=== PATIENT | female | born 1985 | race Caucasian/White ===

== ENCOUNTER 2016-07-22 21:08 | Emergency (ER) | payer MEDICAID ==
[~2016-07-22] VITALS: Ht 165.1 cm; Wt 100.2 kg
[~2016-07-22 21:08] MED LIST: ALBUAER3 IN; ATOR10TA52 PO; BACL10TA PO; BUTA-91 PO; CITA-30 PO; CLON0.5T3 PO; FAM20T PO; GABA300C8 PO; LURA40TA PO; MET10T PO; MORP1SOL7 PO; TEMA30CA PO; WARF5TAB PO; [UNRECOGNIZED DRUG - CODE] IV
[2016-07-22 22:01] LABS: Basophils # (auto) 0.1 uL; Basophils % (auto) 0.6 % (0.0-2.0); DEFINITIVE VIEW TRANSMISSION; Eosinophils # (auto) 1.1 uL; Eosinophils % (auto) 8.8 % (0.0-7.0); Hematocrit 37.8 % (36.0-46.0); Hemoglobin 12.3 g/dL (12.2-16.2); Lymphocytes # (auto) 2.9 uL; Mean Corpuscular Hemoglobin 25.9 pg (28.0-32.0); Mean Corpuscular Hgb Conc. 32.6 g/dL (32.0-36.0); Mean Corpuscular Volume 79.2 fL (80.0-100.0); Mean Platelet Volume 8.3 fL (7.4-10.4); Monocytes # (auto) 0.8 uL; Monocytes % (auto) 6.8 % (0.0-12.0); Neutrophils # (auto) 7.3 uL; Neutrophils % (auto) 59.8 % (37.0-80.0); Platelet Count (auto) 292 10^3/uL (140-450); Red Cell Distribution Width 16.1 % (11.6-16.0); White Blood Cell 12.2 10^3/uL (4.4-10.8)
[2016-07-22 22:27] LABS: Albumin 2.8 g/dL (3.4-5.0); Anion Gap 9 (5-15); Aspartate Aminotransferase 8 U/L (15-37); BUN/Creatinine Ratio 7.4; Blood Urea Nitrogen 5 mg/dL (7-18); Calcium 7.9 mg/dL (8.5-10.1); Carbon Dioxide 26 mmol/L (21-32); Chloride 108 mmol/L (98-107); GFR African American 129 mL/min; GFR Non-African American 107 mL/min; Glucose 105 mg/dL (74-106); Potassium 3.7 mmol/L (3.5-5.1); Sodium 143 mmol/L (136-145)
[2016-07-22 22:30] LABS: Alkaline Phosphatase 93 U/L (45-117); Bilirubin, Total 0.1 mg/dL (0.2-1.0); Total Protein 6.4 g/dL (6.4-8.2)
[2016-07-22] MEDS ORDERED: MORPHINE SULFATE 4 MG/ML SYRG IV ONE (23:15)
[2016-07-22] MEDS ORDERED: ONDANSETRON HCL 4 MG/2 ML VIAL IV ONE (23:15)
[2016-07-23 00:24] LABS: Urine Bilirubin Negative (Negative); Urine Blood Negative /uL (Negative); Urine Color Yellow (Yellow); Urine Glucose Normal (Normal); Urine Ketone Negative (Negative); Urine Nitrite Negative (Negative); Urine RBC <1 /hpf (0 - 4); Urine Squamous Epithelial Cell FEW /hpf (<5); Urine Urobilinogen Normal (Negative)
[2016-07-23 03:00] VITALS: BP 111/70
== END 2016-07-23 04:40 | disposition home or self-care (01) ==
LOC: ER 21:11
DX: G92 Toxic encephalopathy (principal); F19.10 Other psychoactive substance abuse, uncomplicated; J45.909 Unspecified asthma, uncomplicated; F17.210 Nicotine dependence, cigarettes, uncomplicated; F12.10 Cannabis abuse, uncomplicated
CPT/HCPCS: 36415; 51702; 70450; 80053; 80320; 81001; 84484; 84702; 85025; 85049; 93005; 96374; 96375; 99285; G0434; J2270; J2405

== ENCOUNTER 2016-08-19 15:39 | Emergency (ER) | payer MEDICAID ==
[~2016-08-19] VITALS: Ht 165.1 cm; Wt 99.8 kg
[2016-08-19] MEDS ORDERED: SODIUM CHLORIDE 0.9% 1,000 ML IV ONE (19:47)
[2016-08-19] MEDS ORDERED: ONDANSETRON HCL 4 MG/2 ML VIAL IV ONE ×2 (20:00→22:30)
[2016-08-19 20:20] LABS: Basophils # (auto) 0.2 uL; DEFINITIVE VIEW TRANSMISSION; Eosinophils # (auto) 0.3 uL; Eosinophils % (auto) 2.3 % (0.0-7.0); Hematocrit 42.8 % (36.0-46.0); Hemoglobin 13.4 g/dL (12.2-16.2); Lymphocytes # (auto) 4.4 uL; Lymphocytes % (auto) 29.2 % (10.0-50.0); Mean Corpuscular Hemoglobin 24.9 pg (28.0-32.0); Mean Corpuscular Hgb Conc. 31.3 g/dL (32.0-36.0); Mean Corpuscular Volume 79.5 fL (80.0-100.0); Mean Platelet Volume 8.5 fL (7.4-10.4); Monocytes # (auto) 0.8 uL; Neutrophils # (auto) 9.5 uL; Neutrophils % (auto) 62.5 % (37.0-80.0); Platelet Count (auto) 345 10^3/uL (140-450); Red Cell Distribution Width 16.2 % (11.6-16.0); White Blood Cell 15.1 10^3/uL (4.4-10.8)
[2016-08-19 20:42] LABS: Albumin 3.2 g/dL (3.4-5.0); Anion Gap 12 (5-15); Aspartate Aminotransferase 13 U/L (15-37); BUN/Creatinine Ratio 13.2; Blood Urea Nitrogen 10 mg/dL (7-18); Calcium 8.5 mg/dL (8.5-10.1); Carbon Dioxide 23 mmol/L (21-32); Chloride 107 mmol/L (98-107); GFR African American 113 mL/min; GFR Non-African American 94 mL/min; Glucose 74 mg/dL (74-106); Potassium 3.9 mmol/L (3.5-5.1); Sodium 142 mmol/L (136-145)
[2016-08-19 20:45] LABS: Alkaline Phosphatase 101 U/L (45-117); Bilirubin, Total 0.4 mg/dL (0.2-1.0); Total Protein 7.2 g/dL (6.4-8.2)
[2016-08-19] MEDS ORDERED: MORPHINE SULFATE 4 MG/ML SYRG IV ONE (22:30)
[2016-08-20 00:55] LABS: Urine Bilirubin Negative (Negative); Urine Blood Negative /uL (Negative); Urine Color Yellow (Yellow); Urine Glucose Normal (Normal); Urine Ketone Negative (Negative); Urine Mucus FEW (None Seen); Urine Nitrite Negative (Negative); Urine RBC 4 /hpf (0 - 4); Urine Squamous Epithelial Cell FEW /hpf (<5); Urine Urobilinogen Normal (Negative)
[2016-08-20 04:45] VITALS: BP 115/81
== END 2016-08-20 05:06 | disposition home or self-care (01) ==
LOC: ER 15:43
DX: S70.02XA Contusion of left hip, initial encounter (principal); S80.01XA Contusion of right knee, initial encounter; J45.909 Unspecified asthma, uncomplicated; R41.82 Altered mental status, unspecified; E78.5 Hyperlipidemia, unspecified; F19.10 Other psychoactive substance abuse, uncomplicated; F17.210 Nicotine dependence, cigarettes, uncomplicated; F12.10 Cannabis abuse, uncomplicated; Z88.0 Allergy status to penicillin; Z88.2 Allergy status to sulfonamides; Z88.6 Allergy status to analgesic agent; Z88.8 Allergy status to other drugs, medicaments and biological substances; Z79.01 Long term (current) use of anticoagulants; Z79.899 Other long term (current) drug therapy; W19.XXXA Unspecified fall, initial encounter; Y93.89 Activity, other specified; Y99.8 Other external cause status; Y92.89 Other specified places as the place of occurrence of the external cause
CPT/HCPCS: 36415; 70450; 73502; 73562; 80053; 80320; 81001; 84484; 85025; 93005; 96361; 96374; 96375; 96376; 99284; G0434; J2270; J2405

== ENCOUNTER 2016-10-21 15:14 | Inpatient (IN) | payer MEDICAID ==
[~2016-10-21] VITALS: Ht 165.1 cm; Wt 102.6 kg
[2016-10-21 17:06] LABS: Urine Blood TRACE /uL (Negative); Urine Color Yellow (Yellow); Urine Glucose Normal (Normal); Urine Mucus FEW (None Seen); Urine Nitrite Negative (Negative); Urine RBC 5 /hpf (0 - 4); Urine Squamous Epithelial Cell FEW /hpf (<5)
[2016-10-21 17:44] LABS: Basophils # (auto) 0.1 uL; DEFINITIVE VIEW TRANSMISSION; Eosinophils # (auto) 0 uL; Eosinophils % (auto) 0.2 % (0.0-7.0); Hematocrit 46.8 % (36.0-46.0); Hemoglobin 15.1 g/dL (12.2-16.2); Lymphocytes # (auto) 2.5 uL; Lymphocytes % (auto) 16.7 % (10.0-50.0); Mean Corpuscular Hemoglobin 24.3 pg (28.0-32.0); Mean Corpuscular Hgb Conc. 32.3 g/dL (32.0-36.0); Mean Corpuscular Volume 75.1 fL (80.0-100.0); Mean Platelet Volume 9.3 fL (7.4-10.4); Monocytes # (auto) 0.8 uL; Monocytes % (auto) 5.1 % (0.0-12.0); Neutrophils # (auto) 11.4 uL; Platelet Count (auto) 392 10^3/uL (140-450); White Blood Cell 14.8 10^3/uL (4.4-10.8)
[2016-10-21 17:48] LABS: Urine Bilirubin Negative (Negative); Urine Ketone 3+ (Negative)
[2016-10-21 18:27] LABS: BUN/Creatinine Ratio 11.5; Calcium 10.2 mg/dL (8.5-10.1); Potassium 3.2 mmol/L (3.5-5.1)
[2016-10-21 18:30] LABS: Bilirubin, Total 0.3 mg/dL (0.2-1.0); Total Protein 8.5 g/dL (6.4-8.2)
[2016-10-21] MEDS ORDERED: POTASSIUM CHL 20 Meq TABLET PO ONE (22:00)
[2016-10-21] MEDS ORDERED: ONDANSETRON HCL 4 MG/2 ML VIAL IV ONE (22:00)
[2016-10-21] MEDS ORDERED: SODIUM CHLORIDE 0.9% 1,000 ML IV ONE (22:00)
[2016-10-21] MEDS ORDERED: METOCLOPRAMIDE HCL 5MG/ml INJ 2ml VIAL IV ONE (22:45)
[2016-10-22] MEDS ORDERED: diphenhdrAMINE HCL 50 MG/1 ML VL IV ONE (00:30)
[2016-10-22] MEDS ORDERED: HYDROmorphone HCL 2 MG/ML VL IV ONE (00:30)
[2016-10-22] MEDS ORDERED: cefTRIAXone 1GM/50ML D5W 50 ML IV ONE (00:30)
[2016-10-22] MEDS ORDERED: LOPERAMIDE HCL 2 MG CAP PO PRN (06:00)
[2016-10-22] MEDS ORDERED: ACETAMINOPHEN 325 MG TAB PO PRN (06:15)
[2016-10-22] MEDS ORDERED: HYDROcodone-ACET 5/325MG TAB PO PRN (06:15)
[2016-10-22] MEDS: METOCLOPRAMIDE HCL 10 MG TAB PO SCH ×3 (06:19→22:04)
[2016-10-22] MEDS: SODIUM CHLORIDE 0.9% 1,000 ML IV SCH (06:19)
[2016-10-22] MEDS: ONDANSETRON HCL 4 MG/2 ML VIAL IV PRN (06:58)
[2016-10-22] MEDS: MORPHINE SULF INJ 2 MG/ML SYRINGE 1ML IV PRN ×3 (06:58→20:29)
[2016-10-22 07:15] LABS: Partial Thromboplastin Time 43.3 sec (22.64-33.71)
[2016-10-22 07:18] LABS: INR 2.91 (0.9-1.15); Prothrombin Time 31.4 sec (9.37-12.3)
[2016-10-22 08:15] VITALS: BP 129/76
[2016-10-22] MEDS: CITALOPRAM HYDROBR 20 MG TAB PO SCH (09:10)
[2016-10-22] MEDS: clonazePAM 0.5 MG TAB PO SCH ×2 (09:10→22:04)
[2016-10-22] MEDS: PANTOPRAZOLE SODIUM 40 MG/10 ML VIAL IV SCH (09:10)
[2016-10-22] MEDS: GABAPENTIN 300 MG CAP PO SCH ×2 (10:03→22:04)
[2016-10-22 12:30] VITALS: BP 106/53
[2016-10-22] MEDS ORDERED: POTASSIUM CHL 20 Meq TABLET PO ONE (16:45)
[2016-10-22] MEDS ORDERED: WARFARIN SODIUM 2 MG TAB PO ONE (17:00)
[2016-10-22 17:24] VITALS: BP 110/66
[2016-10-22 22:00] VITALS: BP_SYST 109; BP_SYST 170; BP_DIAS 57; BP_DIAS 83
[2016-10-22] MEDS: ATORVASTATIN 20 MG TAB PO SCH (22:03)
[2016-10-23] MEDS: MORPHINE SULF INJ 2 MG/ML SYRINGE 1ML IV PRN ×6 (00:03→22:45)
[2016-10-23 00:09] VITALS: BP 110/66
[2016-10-23] MEDS: SODIUM CHLORIDE 0.9% 1,000 ML IV SCH ×2 (00:10→10:54)
[2016-10-23] MEDS: cefTRIAXone 1GM/50ML D5W 50 ML IV SCH (01:00)
[2016-10-23 05:00] VITALS: BP 111/55
[2016-10-23] MEDS: METOCLOPRAMIDE HCL 10 MG TAB PO SCH ×4 (06:00→21:16)
[2016-10-23 07:03] LABS: Basophils # (auto) 0.1 uL; Basophils % (auto) 0.7 % (0.0-2.0); DEFINITIVE VIEW TRANSMISSION; Eosinophils # (auto) 0.9 uL; Hematocrit 37.7 % (36.0-46.0); Hemoglobin 12.2 g/dL (12.2-16.2); Lymphocytes # (auto) 3.8 uL; Lymphocytes % (auto) 39.5 % (10.0-50.0); Mean Corpuscular Hemoglobin 24.5 pg (28.0-32.0); Mean Corpuscular Hgb Conc. 32.3 g/dL (32.0-36.0); Mean Platelet Volume 9.6 fL (7.4-10.4); Monocytes # (auto) 0.8 uL; Monocytes % (auto) 8.9 % (0.0-12.0); Neutrophils % (auto) 41.9 % (37.0-80.0); Platelet Count (auto) 283 10^3/uL (140-450); Red Cell Distribution Width 17.9 % (11.6-16.0); White Blood Cell 9.5 10^3/uL (4.4-10.8)
[2016-10-23 07:18] LABS: Partial Thromboplastin Time 43.9 sec (22.64-33.71)
[2016-10-23 07:19] LABS: INR 2.3 (0.9-1.15); Prothrombin Time 24.8 sec (9.37-12.3)
[2016-10-23 07:21] LABS: Potassium 3.1 mmol/L (3.5-5.1)
[2016-10-23 07:27] LABS: BUN/Creatinine Ratio 11.3; Calcium 8.2 mg/dL (8.5-10.1)
[2016-10-23 07:31] LABS: Bilirubin, Total 0.3 mg/dL (0.2-1.0); Total Protein 6.5 g/dL (6.4-8.2)
[2016-10-23 07:45] VITALS: BP 111/73
[2016-10-23 08:00] VITALS: BP 111/73
[2016-10-23] MEDS: PANTOPRAZOLE SODIUM 40 MG/10 ML VIAL IV SCH (09:42)
[2016-10-23] MEDS: GABAPENTIN 300 MG CAP PO SCH ×2 (09:42→21:15)
[2016-10-23] MEDS: clonazePAM 0.5 MG TAB PO SCH ×2 (09:43→21:16)
[2016-10-23] MEDS: CITALOPRAM HYDROBR 20 MG TAB PO SCH (09:52)
[2016-10-23] MEDS: ONDANSETRON HCL 4 MG/2 ML VIAL IV PRN ×2 (09:53→22:45)
[2016-10-23] MEDS ORDERED: methylPREDNISolone SOD SUCC 125 MG/2 ML VL IV ONE (11:30)
[2016-10-23] MEDS: POTASSIUM CHL 20MEQ/100ML 100 ML IV SCH ×3 (12:48→16:37)
[2016-10-23 13:32] VITALS: BP 105/76
[2016-10-23] MEDS ORDERED: WARFARIN SODIUM 2 MG TAB PO ONE (17:00)
[2016-10-23] MEDS ORDERED: WARFARIN SODIUM 5 MG TAB PO ONE (17:00)
[2016-10-23] MEDS: ALBUTEROL SULF 2.5 MG/0.5ML(0.5%) NEB SOLN NEB PRN (18:41)
[2016-10-23] MEDS: ATORVASTATIN 20 MG TAB PO SCH (21:16)
[2016-10-23 22:00] VITALS: BP 118/51
[2016-10-24] MEDS: cefTRIAXone 1GM/50ML D5W 50 ML IV SCH (01:10)
[2016-10-24] MEDS: METOCLOPRAMIDE HCL 10 MG TAB PO SCH ×3 (05:03→21:46)
[2016-10-24] MEDS: MORPHINE SULF INJ 2 MG/ML SYRINGE 1ML IV PRN ×5 (05:04→22:16)
[2016-10-24 05:43] VITALS: BP 110/55
[2016-10-24 06:34] LABS: Basophils # (auto) 0 uL; Basophils % (auto) 0.4 % (0.0-2.0); DEFINITIVE VIEW TRANSMISSION; Eosinophils # (auto) 0 uL; Hematocrit 37.1 % (36.0-46.0); Lymphocytes # (auto) 2.6 uL; Lymphocytes % (auto) 24.4 % (10.0-50.0); Mean Corpuscular Hemoglobin 24.5 pg (28.0-32.0); Mean Corpuscular Hgb Conc. 32.5 g/dL (32.0-36.0); Mean Corpuscular Volume 75.5 fL (80.0-100.0); Mean Platelet Volume 9.5 fL (7.4-10.4); Monocytes # (auto) 0.7 uL; Monocytes % (auto) 6.8 % (0.0-12.0); Neutrophils # (auto) 7.2 uL; Neutrophils % (auto) 68.4 % (37.0-80.0); Platelet Count (auto) 311 10^3/uL (140-450); Red Cell Distribution Width 17.9 % (11.6-16.0); White Blood Cell 10.6 10^3/uL (4.4-10.8)
[2016-10-24 06:51] LABS: Partial Thromboplastin Time 40.1 sec (22.64-33.71)
[2016-10-24 06:53] LABS: BUN/Creatinine Ratio 11.1; Calcium 8.3 mg/dL (8.5-10.1); Potassium 3.5 mmol/L (3.5-5.1)
[2016-10-24 06:58] LABS: INR 1.99 (0.9-1.15); Prothrombin Time 21.5 sec (9.37-12.3)
[2016-10-24 08:00] VITALS: BP 123/60
[2016-10-24] MEDS: SODIUM CHLORIDE 0.9% 1,000 ML IV SCH (08:04)
[2016-10-24] MEDS: clonazePAM 0.5 MG TAB PO SCH ×2 (10:08→21:45)
[2016-10-24] MEDS: CITALOPRAM HYDROBR 20 MG TAB PO SCH (10:08)
[2016-10-24] MEDS: GABAPENTIN 300 MG CAP PO SCH ×2 (10:08→21:45)
[2016-10-24] MEDS: PANTOPRAZOLE SODIUM 40 MG/10 ML VIAL IV SCH (10:08)
[2016-10-24] MEDS: ONDANSETRON HCL 4 MG/2 ML VIAL IV PRN ×4 (10:09→21:58)
[2016-10-24] MEDS: ALBUTEROL SULF 2.5 MG/0.5ML(0.5%) NEB SOLN NEB PRN ×2 (10:19→23:48)
[2016-10-24] MEDS: IPRATROPIUM BROM 0.5 MG/2.5ML INH SOL NEB PRN ×2 (10:19→23:48)
[2016-10-24 13:00] VITALS: BP 119/79
[2016-10-24] MEDS: NICOTINE 14 MG/24HR TOPICAL PATCH TD SCH (14:13)
[2016-10-24] MEDS ORDERED: WARFARIN SODIUM 5 MG TAB PO ONE (17:00)
[2016-10-24 17:03] VITALS: BP 105/51
[2016-10-24 17:22] VITALS: BP 127/66
[2016-10-24] MEDS ORDERED: LORazepam 2MG/ML-1ML VIAL IV PRN (17:30)
[2016-10-24] MEDS: Isosource 1.5 Cal 1 Liter GT SCH ×2 (18:30→22:30)
[2016-10-24] MEDS: ATORVASTATIN 20 MG TAB PO SCH (21:46)
[2016-10-24 22:28] VITALS: BP 124/74
[2016-10-25] MEDS: SODIUM CHLORIDE 0.9% 1,000 ML IV SCH ×2 (00:44→17:44)
[2016-10-25] MEDS: cefTRIAXone 1GM/50ML D5W 50 ML IV SCH (02:11)
[2016-10-25] MEDS: MORPHINE SULF INJ 2 MG/ML SYRINGE 1ML IV PRN ×5 (02:11→21:45)
[2016-10-25] MEDS: ONDANSETRON HCL 4 MG/2 ML VIAL IV PRN ×5 (02:12→21:45)
[2016-10-25 05:00] VITALS: BP 110/54
[2016-10-25] MEDS: METOCLOPRAMIDE HCL 10 MG TAB PO SCH ×3 (05:15→21:55)
[2016-10-25 06:50] LABS: Partial Thromboplastin Time 41.3 sec (22.64-33.71)
[2016-10-25 06:52] LABS: INR 2.09 (0.9-1.15); Prothrombin Time 22.6 sec (9.37-12.3)
[2016-10-25 09:00] VITALS: BP 119/67
[2016-10-25] MEDS ORDERED: LORazepam 2MG/ML-1ML VIAL ONE (09:59)
[2016-10-25] MEDS: GABAPENTIN 300 MG CAP PO SCH ×2 (11:41→21:56)
[2016-10-25] MEDS: PANTOPRAZOLE SODIUM 40 MG/10 ML VIAL IV SCH (11:41)
[2016-10-25] MEDS: CITALOPRAM HYDROBR 20 MG TAB PO SCH (11:42)
[2016-10-25] MEDS: clonazePAM 0.5 MG TAB PO SCH ×2 (11:42→21:57)
[2016-10-25] MEDS: NICOTINE 14 MG/24HR TOPICAL PATCH TD SCH (11:44)
[2016-10-25 12:18] VITALS: BP 132/72
[2016-10-25] MEDS ORDERED: WARFARIN SODIUM 5 MG TAB PO ONE (17:00)
[2016-10-25] MEDS: IPRATROPIUM BROM 0.5 MG/2.5ML INH SOL NEB PRN (19:24)
[2016-10-25] MEDS: ALBUTEROL SULF 2.5 MG/0.5ML(0.5%) NEB SOLN NEB PRN (19:24)
[2016-10-25] MEDS: ATORVASTATIN 20 MG TAB PO SCH (21:56)
[2016-10-25 22:00] VITALS: BP 121/67
[2016-10-26] MEDS: ONDANSETRON HCL 4 MG/2 ML VIAL IV PRN ×6 (01:18→23:05)
[2016-10-26] MEDS: cefTRIAXone 1GM/50ML D5W 50 ML IV SCH (01:18)
[2016-10-26] MEDS: MORPHINE SULF INJ 2 MG/ML SYRINGE 1ML IV PRN ×6 (01:23→23:06)
[2016-10-26 03:58] VITALS: BP 121/67
[2016-10-26 05:00] VITALS: BP 96/41
[2016-10-26] MEDS: METOCLOPRAMIDE HCL 10 MG TAB PO SCH ×3 (05:38→22:04)
[2016-10-26 06:51] LABS: Partial Thromboplastin Time 41.5 sec (22.64-33.71)
[2016-10-26 07:03] LABS: INR 2.15 (0.9-1.15); Prothrombin Time 23.2 sec (9.37-12.3)
[2016-10-26 08:00] VITALS: BP 96/41
[2016-10-26] MEDS: GABAPENTIN 300 MG CAP PO SCH ×2 (09:47→22:04)
[2016-10-26] MEDS: PANTOPRAZOLE SODIUM 40 MG/10 ML VIAL IV SCH (09:47)
[2016-10-26] MEDS: CITALOPRAM HYDROBR 20 MG TAB PO SCH (09:48)
[2016-10-26] MEDS: clonazePAM 0.5 MG TAB PO SCH ×2 (09:48→22:04)
[2016-10-26] MEDS: NICOTINE 14 MG/24HR TOPICAL PATCH TD SCH (09:48)
[2016-10-26] MEDS: SODIUM CHLORIDE 0.9% 1,000 ML IV SCH (09:56)
[2016-10-26 09:57] VITALS: BP 98/54
[2016-10-26] MEDS ORDERED: PHYTONADIONE ORAL Susp 10 mg/10ml PO ONE (12:00)
[2016-10-26 13:00] VITALS: BP 117/55
[2016-10-26 13:08] LABS: INR 2.21 (0.9-1.15); Prothrombin Time 23.9 sec (9.37-12.3)
[2016-10-26] MEDS ORDERED: WARFARIN SODIUM 5 MG TAB PO ONE (17:00)
[2016-10-26 17:13] VITALS: BP 123/72
[2016-10-26] MEDS: IPRATROPIUM BROM 0.5 MG/2.5ML INH SOL NEB PRN (19:57)
[2016-10-26] MEDS: ALBUTEROL SULF 2.5 MG/0.5ML(0.5%) NEB SOLN NEB PRN (19:57)
[2016-10-26] MEDS: ATORVASTATIN 20 MG TAB PO SCH (22:04)
[2016-10-27] VITALS (7 sets, daily range): BP systolic 99–115; BP diastolic 56–65
[2016-10-27] MEDS: SODIUM CHLORIDE 0.9% 1,000 ML IV SCH ×2 (02:44→19:24)
[2016-10-27 05:44] LABS: Partial Thromboplastin Time 32.5 sec (22.64-33.71)
[2016-10-27 05:47] LABS: INR 1.18 (0.9-1.15); Prothrombin Time 12.7 sec (9.37-12.3)
[2016-10-27] MEDS: METOCLOPRAMIDE HCL 10 MG TAB PO SCH ×3 (06:00→22:08)
[2016-10-27] MEDS: GABAPENTIN 300 MG CAP PO SCH ×2 (10:27→22:08)
[2016-10-27] MEDS: CITALOPRAM HYDROBR 20 MG TAB PO SCH (10:27)
[2016-10-27] MEDS: PANTOPRAZOLE SODIUM 40 MG/10 ML VIAL IV SCH (10:28)
[2016-10-27] MEDS: MORPHINE SULF INJ 2 MG/ML SYRINGE 1ML IV PRN ×3 (10:28→21:41)
[2016-10-27] MEDS: ONDANSETRON HCL 4 MG/2 ML VIAL IV PRN ×3 (10:28→21:41)
[2016-10-27] MEDS: clonazePAM 0.5 MG TAB PO SCH ×2 (10:28→22:08)
[2016-10-27] MEDS: NICOTINE 14 MG/24HR TOPICAL PATCH TD SCH (10:29)
[2016-10-27] MEDS ORDERED: LIDOCAINE VISCOUS 2% 15ML UD ONE (12:44)
[2016-10-27] MEDS ORDERED: SODIUM CHLORIDE LOCK 10 ML ONE (12:44)
[2016-10-27] MEDS ORDERED: FLUMAZENIL 0.1 MG/ML INJ 10ML MDV IV ONE (12:44)
[2016-10-27] MEDS ORDERED: NALOXONE HCL 0.4 MG/ML VIAL ONE (12:44)
[2016-10-27] MEDS ORDERED: diphenhdrAMINE HCL 50 MG/1 ML VL ONE (12:44)
[2016-10-27] MEDS: fentaNYL CITRATE 100 MCG/2 ML VL ONE ×2 (13:11→13:14)
[2016-10-27] MEDS: MIDAZOLAM HCL 5 MG/ML-1ML VIAL ONE ×2 (13:11→13:14)
[2016-10-27] MEDS ORDERED: WARFARIN SODIUM 5 MG TAB PO ONE (17:00)
[2016-10-27] MEDS: IPRATROPIUM BROM 0.5 MG/2.5ML INH SOL NEB PRN (20:20)
[2016-10-27] MEDS: ALBUTEROL SULF 2.5 MG/0.5ML(0.5%) NEB SOLN NEB PRN (20:21)
[2016-10-27] MEDS: ATORVASTATIN 20 MG TAB PO SCH (22:08)
[2016-10-28] MEDS: MORPHINE SULF INJ 2 MG/ML SYRINGE 1ML IV PRN ×2 (03:21→08:18)
[2016-10-28] MEDS: ONDANSETRON HCL 4 MG/2 ML VIAL IV PRN ×2 (03:21→08:18)
[2016-10-28 05:50] VITALS: BP 101/54
[2016-10-28] MEDS: METOCLOPRAMIDE HCL 10 MG TAB PO SCH (06:32)
[2016-10-28 06:38] LABS: INR 1.04 (0.9-1.15); Partial Thromboplastin Time 30.8 sec (22.64-33.71); Prothrombin Time 11.2 sec (9.37-12.3)
[2016-10-28 08:10] VITALS: BP 123/68
[2016-10-28 09:00] VITALS: BP 123/68
[2016-10-28] MEDS: PANTOPRAZOLE SODIUM 40 MG/10 ML VIAL IV SCH (10:08)
[2016-10-28] MEDS: NICOTINE 14 MG/24HR TOPICAL PATCH TD SCH (10:11)
[2016-10-28] MEDS: GABAPENTIN 300 MG CAP PO SCH (10:12)
[2016-10-28] MEDS: clonazePAM 0.5 MG TAB PO SCH (10:12)
[2016-10-28] MEDS: CITALOPRAM HYDROBR 20 MG TAB PO SCH (10:12)
[2016-10-28] MEDS ORDERED: WARFARIN SODIUM 2.5 MG TAB PO ONE (17:00)
== END 2016-10-28 13:30 | disposition home or self-care (01) | DRG 242 ==
LOC: ER 15:29 → OVERFLOW 15:30 → EAST 10-22 08:12
PROVIDERS: ADMIT Nurse Practitioner; ATTEND Internal Medicine Pulmonary Disease
PROC: 0DB68ZX Excision of Stomach, Via Natural or Artificial Opening Endoscopic, Diagnostic (ICD-10-PCS; principal; 2016-10-27 13:00)
DX: B37.81 Candidal esophagitis (principal); E87.1 Hypo-osmolality and hyponatremia; N39.0 Urinary tract infection, site not specified; E66.01 Morbid (severe) obesity due to excess calories; E86.0 Dehydration; E87.6 Hypokalemia; F12.90 Cannabis use, unspecified, uncomplicated; G40.909 Epilepsy, unspecified, not intractable, without status epilepticus; F31.9 Bipolar disorder, unspecified; F20.9 Schizophrenia, unspecified; E78.5 Hyperlipidemia, unspecified; F17.210 Nicotine dependence, cigarettes, uncomplicated; J45.909 Unspecified asthma, uncomplicated; M48.00 Spinal stenosis, site unspecified; M46.90 Unspecified inflammatory spondylopathy, site unspecified; M51.37 Other intervertebral disc degeneration, lumbosacral region; D33.3 Benign neoplasm of cranial nerves; R26.9 Unspecified abnormalities of gait and mobility; F41.9 Anxiety disorder, unspecified; Z83.3 Family history of diabetes mellitus; Z82.49 Family history of ischemic heart disease and other diseases of the circulatory system; Z91.410 Personal history of adult physical and sexual abuse; Z81.8 Family history of other mental and behavioral disorders; Z68.37 Body mass index [BMI] 37.0-37.9, adult; Z88.6 Allergy status to analgesic agent; Z90.710 Acquired absence of both cervix and uterus; Z88.0 Allergy status to penicillin; Z88.2 Allergy status to sulfonamides; Z88.8 Allergy status to other drugs, medicaments and biological substances
CPT/HCPCS: 36415; 36600; 43239; 70551; 71010; 74176; 78264; 80048; 80053; 81001; 82805; 83690; 84702; 85025; 85610; 85730; 87040; 87045; 87086; 87088; 87186; 87493; 87899; 93306; 94640; 94761; 96361; 96365; 96366; 96375; C9113; G0434; J0696; J2250; J2405; J3480

== ENCOUNTER 2016-11-12 20:57 | Emergency (ER) | payer MEDICAID ==
[~2016-11-12] VITALS: Ht 154.9 cm; Wt 104.3 kg
[2016-11-12 22:06] LABS: Basophils # (auto) 0.1 uL; Basophils % (auto) 0.8 % (0.0-2.0); DEFINITIVE VIEW TRANSMISSION; Eosinophils # (auto) 0.3 uL; Eosinophils % (auto) 4.3 % (0.0-7.0); Hematocrit 39.1 % (36.0-46.0); Hemoglobin 12.6 g/dL (12.2-16.2); Lymphocytes # (auto) 2.9 uL; Lymphocytes % (auto) 36.6 % (10.0-50.0); Mean Corpuscular Hemoglobin 24.4 pg (28.0-32.0); Mean Corpuscular Hgb Conc. 32.3 g/dL (32.0-36.0); Mean Corpuscular Volume 75.6 fL (80.0-100.0); Mean Platelet Volume 9.5 fL (7.4-10.4); Monocytes # (auto) 0.7 uL; Monocytes % (auto) 8.8 % (0.0-12.0); Neutrophils # (auto) 3.9 uL; Neutrophils % (auto) 49.5 % (37.0-80.0); Platelet Count (auto) 267 10^3/uL (140-450); Red Cell Distribution Width 17.8 % (11.6-16.0); White Blood Cell 7.9 10^3/uL (4.4-10.8)
[2016-11-12 22:21] LABS: Albumin 2.8 g/dL (3.4-5.0); BUN/Creatinine Ratio 8.6; Bilirubin, Total 0.2 mg/dL (0.2-1.0); Calcium 8.5 mg/dL (8.5-10.1); Potassium 3.9 mmol/L (3.5-5.1); Total Protein 6.5 g/dL (6.4-8.2)
[2016-11-13] MEDS ORDERED: SODIUM CHLORIDE 0.9% 2,000 ML IV ONE (01:00)
[2016-11-13 03:17] VITALS: BP 136/77
== END 2016-11-13 04:14 | disposition home or self-care (01) ==
LOC: EDBD 20:57 → ER 21:00
DX: E86.0 Dehydration (principal); R53.1 Weakness; G89.29 Other chronic pain; F11.20 Opioid dependence, uncomplicated; Z88.8 Allergy status to other drugs, medicaments and biological substances; Z88.0 Allergy status to penicillin; Z88.1 Allergy status to other antibiotic agents; J45.909 Unspecified asthma, uncomplicated; E78.5 Hyperlipidemia, unspecified; G35 Multiple sclerosis; Z90.710 Acquired absence of both cervix and uterus; F17.210 Nicotine dependence, cigarettes, uncomplicated; F12.10 Cannabis abuse, uncomplicated
CPT/HCPCS: 36415; 70450; 80053; 84702; 85025; 96360; 99285; J7030

== ENCOUNTER 2016-11-16 00:51 | Inpatient (IN) | payer MEDICAID ==
[~2016-11-16] VITALS: Ht 177.8 cm; Wt 103.2 kg
[2016-11-16 02:20] LABS: Urine RBC None Seen /hpf (0 - 4)
[2016-11-16 02:31] LABS: Urine Bilirubin Negative (Negative); Urine Blood Negative /uL (Negative); Urine Color Yellow (Yellow); Urine Glucose Normal (Normal); Urine Ketone Negative (Negative); Urine Nitrite Negative (Negative); Urine Squamous Epithelial Cell FEW /hpf (<5); Urine Urobilinogen Normal (Negative)
[2016-11-16 02:49] LABS: Basophils # (auto) 0.1 uL; Basophils % (auto) 0.6 % (0.0-2.0); DEFINITIVE VIEW TRANSMISSION; Eosinophils # (auto) 0.2 uL; Eosinophils % (auto) 2.4 % (0.0-7.0); Hemoglobin 12.7 g/dL (12.2-16.2); Lymphocytes # (auto) 3.5 uL; Lymphocytes % (auto) 34.5 % (10.0-50.0); Mean Corpuscular Hemoglobin 24.4 pg (28.0-32.0); Mean Corpuscular Hgb Conc. 32.5 g/dL (32.0-36.0); Mean Corpuscular Volume 75.3 fL (80.0-100.0); Mean Platelet Volume 9.4 fL (7.4-10.4); Monocytes # (auto) 0.8 uL; Neutrophils # (auto) 5.6 uL; Neutrophils % (auto) 54.5 % (37.0-80.0); Platelet Count (auto) 327 10^3/uL (140-450); Red Cell Distribution Width 18.3 % (11.6-16.0); White Blood Cell 10.2 10^3/uL (4.4-10.8)
[2016-11-16 03:07] LABS: Albumin 3.2 g/dL (3.4-5.0); Anion Gap 11 (5-15); Aspartate Aminotransferase 16 U/L (15-37); BUN/Creatinine Ratio 16.4; Blood Urea Nitrogen 11 mg/dL (7-18); Calcium 8.6 mg/dL (8.5-10.1); Carbon Dioxide 21 mmol/L (21-32); Chloride 112 mmol/L (98-107); GFR African American 131 mL/min; GFR Non-African American 108 mL/min; Glucose 116 mg/dL (74-106); Partial Thromboplastin Time 58.4 sec (22.64-33.71); Potassium 3.8 mmol/L (3.5-5.1); Sodium 144 mmol/L (136-145)
[2016-11-16 03:09] LABS: Alkaline Phosphatase 100 U/L (45-117); Bilirubin, Total 0.3 mg/dL (0.2-1.0); Total Protein 6.7 g/dL (6.4-8.2)
[2016-11-16 03:12] LABS: INR 3.35 (0.9-1.15); Prothrombin Time 36.2 sec (9.37-12.3)
[2016-11-16] MEDS ORDERED: methylPREDNISolone SOD SUCC 125 MG/2 ML VL ONE (04:12)
[2016-11-16] MEDS ORDERED: methylPREDNISolone SOD SUCC 125 MG/2 ML VL IV ONE (04:15)
[2016-11-16] MEDS ORDERED: NITROGLYCERIN 0.4 MG SL TAB SL PRN (06:30)
[2016-11-16] MEDS ORDERED: ACETAMINOPHEN 325 MG TAB PO PRN (06:30)
[2016-11-16] MEDS ORDERED: MORPHINE SULF INJ 2 MG/ML SYRINGE 1ML IV PRN (06:30)
[2016-11-16] MEDS: SODIUM CHLORIDE 0.9% 1,000 ML IV SCH ×2 (06:51→23:04)
[2016-11-16] MEDS: MORPHINE SULF INJ 2 MG/ML SYRINGE 1ML IV PRN ×4 (06:57→21:03)
[2016-11-16] MEDS: ONDANSETRON HCL 4 MG/2 ML VIAL IV PRN ×4 (07:00→21:03)
[2016-11-16] MEDS ORDERED: LOR05T (10:17)
[2016-11-16] MEDS ORDERED: WARF7.5T20 (10:17)
[2016-11-16] MEDS: CITALOPRAM HYDROBR 20 MG TAB PO SCH (11:21)
[2016-11-16] MEDS: PANTOPRAZOLE SODIUM 40 MG/10 ML VIAL IV SCH (11:21)
[2016-11-16] MEDS: clonazePAM 0.5 MG TAB PO SCH ×2 (11:21→21:53)
[2016-11-16] MEDS: methylPREDNISolone SOD SUCC 125 MG/2 ML VL IV SCH ×2 (11:21→21:49)
[2016-11-16] MEDS ORDERED: Isosource 1.5 Cal 1 Liter NG SCH (12:00)
[2016-11-16] MEDS: GABAPENTIN 300 MG CAP PO SCH ×2 (14:07→21:50)
[2016-11-16] MEDS: METOCLOPRAMIDE HCL 10 MG TAB PO SCH ×2 (14:08→21:50)
[2016-11-16 14:41] VITALS: BP 126/64
[2016-11-16 14:45] VITALS: BP 107/42
[2016-11-16 16:25] VITALS: BP 126/64
[2016-11-16] MEDS ORDERED: Isosource 1.5 Cal 1 Liter GT SCH (18:15)
[2016-11-16] MEDS ORDERED: LORazepam 2MG/ML-1ML VIAL IV PRN (20:30)
[2016-11-16] MEDS: LEVETIRACETAM 500 MG/5ML ORAL SOLN UD PO SCH (21:49)
[2016-11-16] MEDS: ATORVASTATIN 20 MG TAB PO SCH (21:49)
[2016-11-16 22:00] VITALS: BP 113/56
[2016-11-17] MEDS: MORPHINE SULF INJ 2 MG/ML SYRINGE 1ML IV PRN ×3 (02:26→11:33)
[2016-11-17] MEDS: ONDANSETRON HCL 4 MG/2 ML VIAL IV PRN ×3 (02:26→11:33)
[2016-11-17] MEDS: ALBUTEROL SULF 2.5 MG/0.5ML(0.5%) NEB SOLN NEB PRN ×2 (03:10→19:34)
[2016-11-17 05:00] VITALS: BP 107/63
[2016-11-17] MEDS: GABAPENTIN 300 MG CAP PO SCH ×3 (05:32→21:46)
[2016-11-17] MEDS: METOCLOPRAMIDE HCL 10 MG TAB PO SCH ×3 (05:32→21:47)
[2016-11-17 06:06] LABS: Basophils # (auto) 0 uL; Basophils % (auto) 0.1 % (0.0-2.0); DEFINITIVE VIEW TRANSMISSION; Eosinophils # (auto) 0 uL; Hematocrit 38.2 % (36.0-46.0); Hemoglobin 12.4 g/dL (12.2-16.2); Lymphocytes # (auto) 2.8 uL; Lymphocytes % (auto) 14.9 % (10.0-50.0); Mean Corpuscular Hemoglobin 24.7 pg (28.0-32.0); Mean Corpuscular Hgb Conc. 32.5 g/dL (32.0-36.0); Mean Platelet Volume 10.1 fL (7.4-10.4); Monocytes # (auto) 1.3 uL; Monocytes % (auto) 6.9 % (0.0-12.0); Neutrophils # (auto) 14.7 uL; Neutrophils % (auto) 78.1 % (37.0-80.0); Platelet Count (auto) 315 10^3/uL (140-450); Red Cell Distribution Width 18.4 % (11.6-16.0); White Blood Cell 18.8 10^3/uL (4.4-10.8)
[2016-11-17 06:15] LABS: Partial Thromboplastin Time 47.1 sec (22.64-33.71)
[2016-11-17 06:24] LABS: INR 2.31 (0.9-1.15); Prothrombin Time 24.9 sec (9.37-12.3)
[2016-11-17 06:26] LABS: Potassium 3.6 mmol/L (3.5-5.1)
[2016-11-17 06:35] LABS: Albumin 3.3 g/dL (3.4-5.0); BUN/Creatinine Ratio 16.9; Calcium 8.7 mg/dL (8.5-10.1); Magnesium 2.3 mg/dL (1.6-2.6)
[2016-11-17 06:37] LABS: Bilirubin, Total 0.4 mg/dL (0.2-1.0); Total Protein 6.8 g/dL (6.4-8.2)
[2016-11-17 08:00] VITALS: BP 98/80
[2016-11-17 08:40] VITALS: BP 98/50
[2016-11-17] MEDS: LEVETIRACETAM 500 MG/5ML ORAL SOLN UD PO SCH ×2 (10:00→21:45)
[2016-11-17] MEDS: clonazePAM 0.5 MG TAB PO SCH ×2 (11:33→21:47)
[2016-11-17] MEDS: PANTOPRAZOLE SODIUM 40 MG/10 ML VIAL IV SCH (11:33)
[2016-11-17] MEDS: CITALOPRAM HYDROBR 20 MG TAB PO SCH (11:35)
[2016-11-17 12:59] VITALS: BP 100/46
[2016-11-17 16:48] VITALS: BP 98/53
[2016-11-17] MEDS ORDERED: WARFARIN SODIUM 2.5 MG TAB PO ONE (17:00)
[2016-11-17] MEDS: HYDROcodone-ACET 5/325MG TAB PO PRN ×2 (17:39→21:46)
[2016-11-17] MEDS: ATORVASTATIN 20 MG TAB PO SCH (21:46)
[2016-11-17 22:00] VITALS: BP 110/57
[2016-11-18] MEDS: HYDROmorphone HCL 2 MG/ML VL IV PRN ×4 (03:12→21:54)
[2016-11-18 05:30] VITALS: BP 111/64
[2016-11-18 05:57] LABS: Basophils # (auto) 0 uL; Basophils % (auto) 0.2 % (0.0-2.0); DEFINITIVE VIEW TRANSMISSION; Eosinophils # (auto) 0.1 uL; Eosinophils % (auto) 0.8 % (0.0-7.0); Hemoglobin 11.9 g/dL (12.2-16.2); Lymphocytes # (auto) 4.2 uL; Lymphocytes % (auto) 38.2 % (10.0-50.0); Mean Corpuscular Hemoglobin 24.4 pg (28.0-32.0); Mean Corpuscular Hgb Conc. 32.1 g/dL (32.0-36.0); Mean Corpuscular Volume 75.9 fL (80.0-100.0); Mean Platelet Volume 9.8 fL (7.4-10.4); Monocytes # (auto) 0.8 uL; Monocytes % (auto) 7.6 % (0.0-12.0); Neutrophils # (auto) 5.9 uL; Neutrophils % (auto) 53.2 % (37.0-80.0); Platelet Count (auto) 300 10^3/uL (140-450); Red Cell Distribution Width 18.2 % (11.6-16.0)
[2016-11-18] MEDS: METOCLOPRAMIDE HCL 10 MG TAB PO SCH ×3 (06:00→21:55)
[2016-11-18 06:13] LABS: Partial Thromboplastin Time 43.2 sec (22.64-33.71)
[2016-11-18] MEDS: GABAPENTIN 300 MG CAP PO SCH ×3 (06:21→21:55)
[2016-11-18 06:24] LABS: INR 1.94 (0.9-1.15)
[2016-11-18 08:52] VITALS: BP 113/56
[2016-11-18] MEDS: ONDANSETRON HCL 4 MG/2 ML VIAL IV PRN ×3 (08:55→21:54)
[2016-11-18] MEDS: LEVETIRACETAM 500 MG/5ML ORAL SOLN UD PO SCH ×2 (09:26→21:54)
[2016-11-18] MEDS: clonazePAM 0.5 MG TAB PO SCH ×2 (09:26→21:55)
[2016-11-18] MEDS: CITALOPRAM HYDROBR 20 MG TAB PO SCH (09:27)
[2016-11-18] MEDS ORDERED: WARFARIN SODIUM 5 MG TAB PO ONE (17:00)
[2016-11-18 17:19] VITALS: BP 108/60
[2016-11-18 21:35] VITALS: BP 114/59
[2016-11-18] MEDS: ATORVASTATIN 20 MG TAB PO SCH (21:55)
[2016-11-19] VITALS (7 sets, daily range): BP systolic 103–118; BP diastolic 42–63
[2016-11-19] MEDS: HYDROmorphone HCL 2 MG/ML VL IV PRN ×4 (04:41→23:00)
[2016-11-19] MEDS: ONDANSETRON HCL 4 MG/2 ML VIAL IV PRN ×4 (04:42→23:00)
[2016-11-19] MEDS: GABAPENTIN 300 MG CAP PO SCH ×3 (05:50→22:28)
[2016-11-19] MEDS: METOCLOPRAMIDE HCL 10 MG TAB PO SCH ×3 (05:50→22:28)
[2016-11-19 06:26] LABS: Partial Thromboplastin Time 41.2 sec (22.64-33.71)
[2016-11-19 06:53] LABS: INR 1.77 (0.9-1.15); Prothrombin Time 19.1 sec (9.37-12.3)
[2016-11-19] MEDS: CITALOPRAM HYDROBR 20 MG TAB PO SCH (10:43)
[2016-11-19] MEDS: LEVETIRACETAM 500 MG/5ML ORAL SOLN UD PO SCH ×2 (10:44→23:02)
[2016-11-19] MEDS: clonazePAM 0.5 MG TAB PO SCH ×2 (10:44→22:29)
[2016-11-19] MEDS: HYDROcodone-ACET 5/325MG TAB PO PRN ×2 (12:38→18:38)
[2016-11-19] MEDS ORDERED: WARFARIN SODIUM 2.5 MG TAB PO ONE (17:00)
[2016-11-19] MEDS: ATORVASTATIN 20 MG TAB PO SCH (22:28)
[2016-11-19] MEDS: BACLOFEN 10 MG TAB PO PRN (22:59)
[2016-11-20] VITALS (8 sets, daily range): BP systolic 93–115; BP diastolic 56–76
[2016-11-20] MEDS: HYDROcodone-ACET 5/325MG TAB PO PRN ×5 (00:06→23:57)
[2016-11-20] MEDS: GABAPENTIN 300 MG CAP PO SCH ×3 (06:21→22:20)
[2016-11-20] MEDS: METOCLOPRAMIDE HCL 10 MG TAB PO SCH ×3 (06:21→22:20)
[2016-11-20 06:48] LABS: Basophils # (auto) 0 uL; Basophils % (auto) 0.2 % (0.0-2.0); DEFINITIVE VIEW TRANSMISSION; Eosinophils # (auto) 0.4 uL; Eosinophils % (auto) 3.5 % (0.0-7.0); Hematocrit 35.1 % (36.0-46.0); Hemoglobin 11.6 g/dL (12.2-16.2); Lymphocytes # (auto) 4.1 uL; Lymphocytes % (auto) 39.8 % (10.0-50.0); Mean Corpuscular Hemoglobin 25.4 pg (28.0-32.0); Mean Corpuscular Volume 76.7 fL (80.0-100.0); Mean Platelet Volume 9.6 fL (7.4-10.4); Monocytes # (auto) 0.7 uL; Monocytes % (auto) 7.2 % (0.0-12.0); Neutrophils # (auto) 5.1 uL; Neutrophils % (auto) 49.3 % (37.0-80.0); Platelet Count (auto) 297 10^3/uL (140-450); Red Cell Distribution Width 18.2 % (11.6-16.0); White Blood Cell 10.3 10^3/uL (4.4-10.8)
[2016-11-20] MEDS: ONDANSETRON HCL 4 MG/2 ML VIAL IV PRN ×2 (06:55→13:05)
[2016-11-20] MEDS: HYDROmorphone HCL 2 MG/ML VL IV PRN ×2 (06:55→13:05)
[2016-11-20 07:20] LABS: Partial Thromboplastin Time 44.4 sec (22.64-33.71)
[2016-11-20 07:22] LABS: INR 2.25 (0.9-1.15); Prothrombin Time 24.3 sec (9.37-12.3)
[2016-11-20] MEDS: CITALOPRAM HYDROBR 20 MG TAB PO SCH (10:07)
[2016-11-20] MEDS: clonazePAM 0.5 MG TAB PO SCH ×2 (10:07→22:20)
[2016-11-20] MEDS: LEVETIRACETAM 500 MG/5ML ORAL SOLN UD PO SCH ×2 (10:07→22:23)
[2016-11-20] MEDS: BACLOFEN 10 MG TAB PO PRN (16:39)
[2016-11-20] MEDS ORDERED: WARFARIN SODIUM 2 MG TAB PO ONE (17:00)
[2016-11-20] MEDS ORDERED: PANTOPRAZOLE 40 MG TAB PO ONE (18:30)
[2016-11-20] MEDS: ATORVASTATIN 20 MG TAB PO SCH (22:20)
[2016-11-21] MEDS: BACLOFEN 10 MG TAB PO PRN (00:44)
[2016-11-21 05:00] VITALS: BP 110/69
[2016-11-21] MEDS: HYDROcodone-ACET 5/325MG TAB PO PRN (05:50)
[2016-11-21] MEDS: GABAPENTIN 300 MG CAP PO SCH (05:50)
[2016-11-21] MEDS: METOCLOPRAMIDE HCL 10 MG TAB PO SCH (05:55)
[2016-11-21 06:13] LABS: Partial Thromboplastin Time 47.3 sec (22.64-33.71)
[2016-11-21 06:16] LABS: INR 2.54 (0.9-1.15); Prothrombin Time 27.4 sec (9.37-12.3)
[2016-11-21 08:00] VITALS: BP 110/69
[2016-11-21 08:36] VITALS: BP 98/52
[2016-11-21 09:38] VITALS: BP 110/69
[2016-11-21] MEDS: LEVETIRACETAM 500 MG/5ML ORAL SOLN UD PO SCH (09:52)
[2016-11-21] MEDS: clonazePAM 0.5 MG TAB PO SCH (09:52)
[2016-11-21] MEDS: CITALOPRAM HYDROBR 20 MG TAB PO SCH (09:52)
[2016-11-21] MEDS ORDERED: PANTOPRAZOLE 40 MG TAB PO SCH (10:00)
[2016-11-21] MEDS ORDERED: WARFARIN SODIUM 2 MG TAB PO ONE (17:00)
== END 2016-11-21 11:30 | disposition home health service (06) | DRG 43 ==
LOC: ER 00:51 → EDBD 00:51 → TELE 00:52 → TELE-CENTR 14:42 → CENTRAL 15:07
PROVIDERS: ADMIT Nurse Practitioner; ATTEND Internal Medicine Pulmonary Disease
DX: G35 Multiple sclerosis (principal); E44.1 Mild protein-calorie malnutrition; F41.9 Anxiety disorder, unspecified; D72.829 Elevated white blood cell count, unspecified; R13.10 Dysphagia, unspecified; E78.5 Hyperlipidemia, unspecified; F11.20 Opioid dependence, uncomplicated; F17.210 Nicotine dependence, cigarettes, uncomplicated; F20.9 Schizophrenia, unspecified; F31.9 Bipolar disorder, unspecified; G40.909 Epilepsy, unspecified, not intractable, without status epilepticus; J45.909 Unspecified asthma, uncomplicated; M51.37 Other intervertebral disc degeneration, lumbosacral region; D36.10 Benign neoplasm of peripheral nerves and autonomic nervous system, unspecified; M48.00 Spinal stenosis, site unspecified; M46.90 Unspecified inflammatory spondylopathy, site unspecified; T38.0X5A Adverse effect of glucocorticoids and synthetic analogues, initial encounter; W06.XXXA Fall from bed, initial encounter; Z81.8 Family history of other mental and behavioral disorders; Z82.49 Family history of ischemic heart disease and other diseases of the circulatory system; Z91.410 Personal history of adult physical and sexual abuse; Z83.3 Family history of diabetes mellitus; Z99.3 Dependence on wheelchair; Z87.440 Personal history of urinary (tract) infections; Z90.710 Acquired absence of both cervix and uterus; Z88.6 Allergy status to analgesic agent; Z88.2 Allergy status to sulfonamides; Z88.8 Allergy status to other drugs, medicaments and biological substances; Z68.32 Body mass index [BMI] 32.0-32.9, adult; Z71.6 Tobacco abuse counseling
CPT/HCPCS: 36415; 70450; 73200; 73700; 80053; 80307; 80320; 81001; 81025; 83735; 84702; 85025; 85610; 85730; 93005; 94640; 96374; 97116; 97530; C9113; J2405

== ENCOUNTER 2016-11-24 14:39 | Emergency (ER) | payer MEDICAID ==
[~2016-11-24] VITALS: Ht 165.1 cm; Wt 108.9 kg
[~2016-11-24 14:39] MED LIST changes: +LOR05T; +WARF7.5T20; -[UNRECOGNIZED DRUG - CODE] IV
[2016-11-24 14:59] VITALS: BP 110/77
== END 2016-11-24 16:40 | disposition home or self-care (01) ==
LOC: EDBD 14:39 → ER 14:39 → EDUNIT# 14:39 → ER 16:40
DX: F44.4 Conversion disorder with motor symptom or deficit (principal); F41.9 Anxiety disorder, unspecified; J45.909 Unspecified asthma, uncomplicated; F17.210 Nicotine dependence, cigarettes, uncomplicated; F12.10 Cannabis abuse, uncomplicated; E78.5 Hyperlipidemia, unspecified; Z88.0 Allergy status to penicillin; Z88.2 Allergy status to sulfonamides; Z88.6 Allergy status to analgesic agent; Z90.710 Acquired absence of both cervix and uterus

== ENCOUNTER 2017-01-12 22:55 | Emergency (ER) | payer MEDICAID ==
[~2017-01-12] VITALS: Ht 170.2 cm; Wt 90.7 kg
[~2017-01-12 22:55] MED LIST changes: +GABA-497 PO; -GABA300C8 PO
[2017-01-13 04:30] VITALS: BP 102/69
== END 2017-01-13 04:57 | disposition home or self-care (01) ==
LOC: EDBD 22:55 → ER 23:07
DX: F44.9 Dissociative and conversion disorder, unspecified (principal); M79.605 Pain in left leg; M79.604 Pain in right leg; F17.210 Nicotine dependence, cigarettes, uncomplicated; F12.10 Cannabis abuse, uncomplicated; J45.909 Unspecified asthma, uncomplicated; E78.5 Hyperlipidemia, unspecified; Z88.0 Allergy status to penicillin; Z79.01 Long term (current) use of anticoagulants; Z88.2 Allergy status to sulfonamides; Z79.899 Other long term (current) drug therapy; Z88.6 Allergy status to analgesic agent

== ENCOUNTER 2017-06-04 17:29 | Emergency (ER) | payer MEDICAID ==
[~2017-06-04] VITALS: Ht 165.1 cm; Wt 95.3 kg
[~2017-06-04 17:29] MED LIST changes: -LOR05T; +LORA-654
[2017-06-04 19:16] LABS: Basophils # (auto) 0 uL; Lymphocytes # (auto) 3.6 uL; Mean Corpuscular Hemoglobin 26.4 pg (28.0-32.0); Monocytes # (auto) 0.8 uL; Neutrophils # (auto) 5.4 uL; Platelet Count (auto) 312 10^3/uL (140-450)
[2017-06-04 19:18] LABS: Basophils % (auto) 0.4 % (0.0-2.0); Eosinophils # (auto) 1.1 uL; Eosinophils % (auto) 10.3 % (0.0-7.0); Hematocrit 41.3 % (36.0-46.0); Hemoglobin 13.6 g/dL (12.2-16.2); Mean Corpuscular Volume 80.1 fL (80.0-100.0); Mean Platelet Volume 8.8 fL (6.9-10.8); Monocytes % (auto) 7.7 % (0.0-12.0); Neutrophils % (auto) 48.6 % (37.0-80.0); Red Cell Distribution Width 17.4 % (11.8-14.3)
[2017-06-04 19:22] LABS: Urine Bilirubin Negative (Negative); Urine Blood Negative /uL (Negative); Urine Ca Oxalate Crystal FEW (None Seen); Urine Color Yellow (Yellow); Urine Glucose Normal (Normal); Urine Ketone Negative (Negative); Urine Mucus FEW (None Seen); Urine Nitrite Negative (Negative); Urine RBC 3 /hpf (0 - 4); Urine Squamous Epithelial Cell MOD /hpf (<5); Urine pH 5.5 (5.0-8.0)
[2017-06-04 19:29] LABS: BUN/Creatinine Ratio 13.6; Calcium 9.1 mg/dL (8.5-10.1); Potassium 3.9 mmol/L (3.5-5.1)
[2017-06-04 19:31] LABS: Bilirubin, Total 0.2 mg/dL (0.2-1.0)
[2017-06-05] MEDS ORDERED: SODIUM CHLORIDE 0.9% 1,000 ML IV ONE (00:30)
[2017-06-05] MEDS ORDERED: cefTRIAXone 1GM/50ML D5W 50 ML IV ONE (00:30)
[2017-06-05] MEDS ORDERED: ONDANSETRON HCL 4 MG/2 ML VIAL IV ONE (00:30)
[2017-06-05] MEDS ORDERED: MORPHINE SULF INJ 2 MG/ML SYRINGE 1ML IV ONE (00:30)
[2017-06-05 01:20] VITALS: BP 120/71
== END 2017-06-05 01:21 | disposition home or self-care (01) ==
LOC: ER 17:29
DX: K29.70 Gastritis, unspecified, without bleeding (principal); J45.909 Unspecified asthma, uncomplicated; E78.5 Hyperlipidemia, unspecified; G89.4 Chronic pain syndrome; Z88.8 Allergy status to other drugs, medicaments and biological substances; Z88.1 Allergy status to other antibiotic agents; Z79.899 Other long term (current) drug therapy; Z87.440 Personal history of urinary (tract) infections; F17.210 Nicotine dependence, cigarettes, uncomplicated; Z93.1 Gastrostomy status; Z98.890 Other specified postprocedural states; Z90.49 Acquired absence of other specified parts of digestive tract; Z88.0 Allergy status to penicillin; Z79.01 Long term (current) use of anticoagulants
CPT/HCPCS: 36415; 74176; 80053; 81001; 85025; 96365; 96375; 99285; J0696; J2270; J2405; J7030; 96361; 96374

== ENCOUNTER 2017-06-12 15:53 | Emergency (ER) | payer MEDICAID ==
[~2017-06-12] VITALS: Ht 165.1 cm; Wt 95.3 kg
[2017-06-12 16:07] VITALS: BP 102/47
[2017-06-12 21:19] LABS: Urine Bilirubin Negative (Negative); Urine Blood Negative /uL (Negative); Urine Color Yellow (Yellow); Urine Glucose Normal (Normal); Urine Ketone Negative (Negative); Urine Mucus FEW (None Seen); Urine Nitrite Negative (Negative); Urine RBC 3 /hpf (0 - 4); Urine Squamous Epithelial Cell FEW /hpf (<5)
[2017-06-12 21:35] LABS: Vaginal Bacteria Moderate; Vaginal Clue Cells None Seen; Vaginal Epithelial Cells Many; Vaginal RBC Few; Vaginal Trichomonas Not Present; Vaginal WBC Few; Vaginal Yeast Moderate
[2017-06-12] MEDS ORDERED: FLUCONAZOLE 100 MG TAB PO ONE (21:45)
== END 2017-06-12 22:09 | disposition home or self-care (01) ==
LOC: ER 16:01
DX: B37.9 Candidiasis, unspecified (principal); N39.0 Urinary tract infection, site not specified; F17.210 Nicotine dependence, cigarettes, uncomplicated; J45.909 Unspecified asthma, uncomplicated; E78.5 Hyperlipidemia, unspecified; Z90.710 Acquired absence of both cervix and uterus; Z79.01 Long term (current) use of anticoagulants; Z88.0 Allergy status to penicillin; Z88.2 Allergy status to sulfonamides; Z88.1 Allergy status to other antibiotic agents; Z79.899 Other long term (current) drug therapy
CPT/HCPCS: 81001; 87070; 87210

== ENCOUNTER 2017-06-24 18:01 | Emergency (ER) | payer MEDICAID ==
[~2017-06-24] VITALS: Ht 165.1 cm; Wt 77.1 kg
[2017-06-25 07:38] VITALS: BP 112/63
[2017-06-25] MEDS ORDERED: HYDROcodone-ACET 10/325MG TAB PO ONE (09:00)
== END 2017-06-25 10:06 | disposition home or self-care (01) ==
LOC: EDBD 18:01 → ER 18:04
DX: M79.1 Myalgia (principal); M79.605 Pain in left leg; M79.604 Pain in right leg; F17.210 Nicotine dependence, cigarettes, uncomplicated; F12.10 Cannabis abuse, uncomplicated; J45.909 Unspecified asthma, uncomplicated; E78.5 Hyperlipidemia, unspecified; Z79.899 Other long term (current) drug therapy; Z88.6 Allergy status to analgesic agent; Z88.0 Allergy status to penicillin; Z88.8 Allergy status to other drugs, medicaments and biological substances

== ENCOUNTER 2017-06-27 11:21 | Inpatient (IN) | payer MEDICAID ==
[~2017-06-27] VITALS: Ht 162.6 cm; Wt 104.5 kg
[2017-06-27 17:34] LABS: Basophils # (auto) 0.1 uL; Basophils % (auto) 0.7 % (0.0-2.0); Hemoglobin 12.9 g/dL (12.2-16.2); Monocytes # (auto) 0.7 uL; Monocytes % (auto) 6.9 % (0.0-12.0)
[2017-06-27 17:35] LABS: Eosinophils # (auto) 0.4 uL; Eosinophils % (auto) 3.7 % (0.0-7.0); Hematocrit 39.2 % (36.0-46.0); Lymphocytes # (auto) 3.4 uL; Lymphocytes % (auto) 33.2 % (10.0-50.0); Mean Corpuscular Hemoglobin 26.3 pg (28.0-32.0); Mean Corpuscular Hgb Conc. 32.9 g/dL (32.0-36.0); Mean Platelet Volume 8.5 fL (6.9-10.8); Neutrophils # (auto) 5.6 uL; Neutrophils % (auto) 55.5 % (37.0-80.0); Nucleated Red Blood Cells % 0.1 %; Platelet Count (auto) 225 10^3/uL (140-450); Red Cell Distribution Width 16.4 % (11.8-14.3); White Blood Cell 10.1 10^3/uL (4.4-10.8)
[2017-06-27 17:41] LABS: INR 0.95 (0.9-1.15); Partial Thromboplastin Time 31.6 sec (22.64-33.71); Prothrombin Time 10.3 sec (9.37-12.3)
[2017-06-27 17:51] LABS: Albumin 2.8 g/dL (3.4-5.0); BUN/Creatinine Ratio 10.5; Bilirubin, Total 0.2 mg/dL (0.2-1.0); Calcium 8.4 mg/dL (8.5-10.1); Potassium 3.5 mmol/L (3.5-5.1); Total Protein 6.7 g/dL (6.4-8.2)
[2017-06-27] MEDS ORDERED: ONDANSETRON HCL 4 MG/2 ML VIAL IV ONE (18:00)
[2017-06-27] MEDS ORDERED: MORPHINE SULF INJ 2 MG/ML SYRINGE 1ML IV ONE (18:00)
[2017-06-27] MEDS: SODIUM CHLORIDE 0.9% 1,000 ML IV SCH (18:24)
[2017-06-27] MEDS ORDERED: LORazepam 2MG/ML-1ML VIAL IV PRN (18:30)
[2017-06-27] MEDS ORDERED: FAMOTIDINE (10MG/ML) 2ML VL IV ONE (18:30)
[2017-06-27 20:00] VITALS: BP 100/56
[2017-06-27 20:15] LABS: Urine RBC None Seen /hpf (0 - 4)
[2017-06-27 20:21] LABS: Urine Bilirubin Negative (Negative); Urine Blood Negative /uL (Negative); Urine Color Yellow (Yellow); Urine Glucose Normal (Normal); Urine Ketone Negative (Negative); Urine Nitrite Negative (Negative); Urine Squamous Epithelial Cell FEW /hpf (<5); Urine Urobilinogen Normal (Negative)
[2017-06-27] MEDS: ONDANSETRON HCL 4 MG/2 ML VIAL IV PRN (20:22)
[2017-06-27] MEDS: MORPHINE SULF INJ 2 MG/ML SYRINGE 1ML IV PRN (20:22)
[2017-06-27] MEDS: LORazepam 2MG/ML-1ML VIAL IV PRN (21:43)
[2017-06-27 22:17] VITALS: BP 100/56
[2017-06-28] MEDS: ALBUTEROL SULF 2.5 MG/0.5ML(0.5%) NEB SOLN NEB SCH ×2 (00:17→19:09)
[2017-06-28 01:51] VITALS: BP 100/56
[2017-06-28] MEDS: SODIUM CHLORIDE 0.9% 1,000 ML IV SCH ×3 (03:36→19:15)
[2017-06-28] MEDS: MORPHINE SULF INJ 2 MG/ML SYRINGE 1ML IV PRN ×3 (03:37→14:07)
[2017-06-28] MEDS: ONDANSETRON HCL 4 MG/2 ML VIAL IV PRN ×2 (03:37→10:24)
[2017-06-28 05:22] VITALS: BP 95/52
[2017-06-28] MEDS: LORazepam 2MG/ML-1ML VIAL IV PRN ×3 (05:37→19:03)
[2017-06-28 06:12] LABS: Basophils # (auto) 0 uL; Eosinophils # (auto) 0.3 uL; Hemoglobin 11.9 g/dL (12.2-16.2); Neutrophils # (auto) 3.9 uL; Nucleated Red Blood Cells % 0.1 %
[2017-06-28 06:14] LABS: Basophils % (auto) 0.3 % (0.0-2.0); Eosinophils % (auto) 4.1 % (0.0-7.0); Hematocrit 36.4 % (36.0-46.0); Lymphocytes # (auto) 2.8 uL; Lymphocytes % (auto) 37.2 % (10.0-50.0); Mean Corpuscular Hemoglobin 26.1 pg (28.0-32.0); Mean Corpuscular Hgb Conc. 32.7 g/dL (32.0-36.0); Mean Platelet Volume 8.6 fL (6.9-10.8); Monocytes # (auto) 0.6 uL; Monocytes % (auto) 7.4 % (0.0-12.0); Platelet Count (auto) 216 10^3/uL (140-450); Red Cell Distribution Width 16.2 % (11.8-14.3); White Blood Cell 7.6 10^3/uL (4.4-10.8)
[2017-06-28 06:40] LABS: Albumin 2.4 g/dL (3.4-5.0); BUN/Creatinine Ratio 11.8; Calcium 8.1 mg/dL (8.5-10.1); Potassium 3.6 mmol/L (3.5-5.1)
[2017-06-28 06:42] LABS: Bilirubin, Total 0.4 mg/dL (0.2-1.0); Total Protein 5.9 g/dL (6.4-8.2)
[2017-06-28 09:18] VITALS: BP 116/59
[2017-06-28] MEDS ORDERED: LIDOCAINE VISCOUS 2% 15ML UD ONE (11:06)
[2017-06-28] MEDS ORDERED: SODIUM CHLORIDE LOCK 10 ML ONE (11:06)
[2017-06-28] MEDS ORDERED: diphenhdrAMINE HCL 50 MG/1 ML VL ONE (11:06)
[2017-06-28] MEDS: MIDAZOLAM HCL 5 MG/ML-1ML VIAL ONE ×3 (12:04→12:21)
[2017-06-28] MEDS: fentaNYL CITRATE 100 MCG/2 ML VL ONE ×3 (12:04→12:21)
[2017-06-28] MEDS ORDERED: CLINDAMYCIN 600MG IV 50 ML IV ONE (12:45)
[2017-06-28 13:00] VITALS: BP 99/58
[2017-06-28] MEDS: FAMOTIDINE (10MG/ML) 2ML VL IV SCH (15:35)
[2017-06-28] MEDS: HYDROmorphone HCL 2 MG/ML VL IV PRN ×3 (15:38→23:14)
[2017-06-28 17:04] VITALS: BP 90/50
[2017-06-28 22:44] VITALS: BP 103/63
[2017-06-29] MEDS: LORazepam 2MG/ML-1ML VIAL IV PRN ×4 (00:09→20:30)
[2017-06-29] MEDS: ALBUTEROL SULF 2.5 MG/0.5ML(0.5%) NEB SOLN NEB SCH ×4 (00:11→18:52)
[2017-06-29] MEDS: HYDROmorphone HCL 2 MG/ML VL IV PRN ×6 (03:21→23:19)
[2017-06-29] MEDS: ONDANSETRON HCL 4 MG/2 ML VIAL IV PRN ×4 (03:32→20:30)
[2017-06-29] MEDS: SODIUM CHLORIDE 0.9% 1,000 ML IV SCH ×4 (03:53→23:30)
[2017-06-29 05:12] VITALS: BP 107/63
[2017-06-29 05:45] LABS: Basophils # (auto) 0 uL; Eosinophils # (auto) 0.2 uL; Hemoglobin 11.5 g/dL (12.2-16.2); Lymphocytes # (auto) 2.9 uL; Mean Platelet Volume 8.3 fL (6.9-10.8); Monocytes # (auto) 0.5 uL; Neutrophils % (auto) 51.7 % (37.0-80.0)
[2017-06-29 05:47] LABS: Basophils % (auto) 0.2 % (0.0-2.0); Eosinophils % (auto) 2.8 % (0.0-7.0); Hematocrit 34.8 % (36.0-46.0); Lymphocytes % (auto) 38.3 % (10.0-50.0); Mean Corpuscular Hemoglobin 26.2 pg (28.0-32.0); Mean Corpuscular Hgb Conc. 32.9 g/dL (32.0-36.0); Mean Corpuscular Volume 79.7 fL (80.0-100.0); Platelet Count (auto) 211 10^3/uL (140-450); Red Cell Distribution Width 16.3 % (11.8-14.3); White Blood Cell 7.7 10^3/uL (4.4-10.8)
[2017-06-29 06:32] LABS: Albumin 2.5 g/dL (3.4-5.0); BUN/Creatinine Ratio 15.4; Bilirubin, Total 0.3 mg/dL (0.2-1.0); Potassium 3.7 mmol/L (3.5-5.1)
[2017-06-29 09:00] VITALS: BP 102/57
[2017-06-29] MEDS: FAMOTIDINE (10MG/ML) 2ML VL IV SCH (10:25)
[2017-06-29 13:00] VITALS: BP 99/54
[2017-06-29] MEDS ORDERED: Isosource 1.5 Cal 1 Liter GT SCH (13:15)
[2017-06-29 17:00] VITALS: BP 108/59
[2017-06-29 22:00] VITALS: BP 108/61
[2017-06-30] MEDS: ALBUTEROL SULF 2.5 MG/0.5ML(0.5%) NEB SOLN NEB SCH ×2 (00:06→12:11)
[2017-06-30] MEDS: LORazepam 2MG/ML-1ML VIAL IV PRN ×3 (02:30→08:48)
[2017-06-30] MEDS: ONDANSETRON HCL 4 MG/2 ML VIAL IV PRN ×2 (02:31→02:48)
[2017-06-30] MEDS: HYDROmorphone HCL 2 MG/ML VL IV PRN ×3 (03:23→11:05)
[2017-06-30 05:00] VITALS: BP 91/47
[2017-06-30 09:00] VITALS: BP 119/54
[2017-06-30] MEDS: FAMOTIDINE (10MG/ML) 2ML VL IV SCH ×2 (09:00→10:05)
[2017-06-30 11:01] VITALS: BP 119/54
[2017-06-30] MEDS: SODIUM CHLORIDE 0.9% 1,000 ML IV SCH (11:43)
== END 2017-06-30 12:45 | disposition left against medical advice (07) | DRG 252 ==
LOC: ER 11:21 → OVERFLOW 11:22 → WEST WING 20:56
PROVIDERS: ADMIT Internal Medicine; ATTEND Internal Medicine
PROC: 0DH63UZ Insertion of Feeding Device into Stomach, Percutaneous Approach (ICD-10-PCS; 2017-06-28)
PROC: 0DP6XUZ Removal of Feeding Device from Stomach, External Approach (ICD-10-PCS; principal; 2017-06-28 11:57)
DX: K94.23 Gastrostomy malfunction (principal); E44.0 Moderate protein-calorie malnutrition; G35 Multiple sclerosis; F11.20 Opioid dependence, uncomplicated; F32.9 Major depressive disorder, single episode, unspecified; E78.5 Hyperlipidemia, unspecified; F12.90 Cannabis use, unspecified, uncomplicated; G40.909 Epilepsy, unspecified, not intractable, without status epilepticus; F41.9 Anxiety disorder, unspecified; Z53.21 Procedure and treatment not carried out due to patient leaving prior to being seen by health care provider; J45.909 Unspecified asthma, uncomplicated; F17.210 Nicotine dependence, cigarettes, uncomplicated; Z82.49 Family history of ischemic heart disease and other diseases of the circulatory system; Z83.3 Family history of diabetes mellitus; Z90.710 Acquired absence of both cervix and uterus; Z90.49 Acquired absence of other specified parts of digestive tract; Z88.8 Allergy status to other drugs, medicaments and biological substances; Z88.0 Allergy status to penicillin; Z88.2 Allergy status to sulfonamides; Z88.6 Allergy status to analgesic agent; Z79.899 Other long term (current) drug therapy; Z87.440 Personal history of urinary (tract) infections; Z71.3 Dietary counseling and surveillance
CPT/HCPCS: 36415; 43246; 80053; 81001; 81025; 85025; 85610; 85730; 87086; 94640; 94761; 96374; 96375; 96376; J2250; J2405; J3490

== ENCOUNTER 2017-07-08 19:42 | Emergency (ER) | payer MEDICAID ==
[~2017-07-08] VITALS: Ht 165.1 cm; Wt 95.3 kg
[~2017-07-08 19:42] MED LIST changes: -GABA-497 PO; +GABA300C10 PO
[2017-07-09 08:02] VITALS: BP 100/55
== END 2017-07-09 08:59 | disposition home or self-care (01) ==
LOC: ER 19:42
DX: K59.01 Slow transit constipation (principal); E78.5 Hyperlipidemia, unspecified; F17.210 Nicotine dependence, cigarettes, uncomplicated; Z93.1 Gastrostomy status; Z83.3 Family history of diabetes mellitus; Z82.49 Family history of ischemic heart disease and other diseases of the circulatory system; Z84.1 Family history of disorders of kidney and ureter; Z79.01 Long term (current) use of anticoagulants; Z88.0 Allergy status to penicillin; Z88.2 Allergy status to sulfonamides; Z88.6 Allergy status to analgesic agent; Z88.8 Allergy status to other drugs, medicaments and biological substances; Z90.710 Acquired absence of both cervix and uterus
CPT/HCPCS: 74176

== ENCOUNTER 2017-07-12 17:35 | Emergency (ER) | payer MEDICAID ==
[~2017-07-12] VITALS: Ht 165.1 cm; Wt 95.3 kg
[2017-07-12 20:25] LABS: Basophils # (auto) 0.1 uL; Eosinophils # (auto) 0.4 uL; Lymphocytes # (auto) 3.2 uL; Monocytes # (auto) 0.6 uL; Red Blood Cells 5.58 10^6/uL (4.0-5.20); White Blood Cell 10.7 10^3/uL (4.4-10.8)
[2017-07-12 20:27] LABS: Basophils % (auto) 0.5 % (0.0-2.0); Eosinophils % (auto) 3.5 % (0.0-7.0); Hematocrit 44.1 % (36.0-46.0); Hemoglobin 14.6 g/dL (12.2-16.2); Lymphocytes % (auto) 29.8 % (10.0-50.0); Mean Corpuscular Hemoglobin 26.2 pg (28.0-32.0); Mean Corpuscular Hgb Conc. 33.1 g/dL (32.0-36.0); Monocytes % (auto) 5.8 % (0.0-12.0); Neutrophils # (auto) 6.5 uL; Neutrophils % (auto) 60.4 % (37.0-80.0); Nucleated Red Blood Cells % 0.1 %; Platelet Count (auto) 320 10^3/uL (140-450); Red Cell Distribution Width 16.2 % (11.8-14.3)
[2017-07-12 20:36] LABS: Albumin 3.5 g/dL (3.4-5.0); BUN/Creatinine Ratio 14.3; Calcium 8.9 mg/dL (8.5-10.1); Potassium 3.4 mmol/L (3.5-5.1)
[2017-07-12 20:38] LABS: Bilirubin, Total 0.2 mg/dL (0.2-1.0); Total Protein 7.8 g/dL (6.4-8.2)
[2017-07-13] MEDS ORDERED: HYDROcodone-ACET 10/325MG TAB PO ONE (02:45)
[2017-07-13 02:55] VITALS: BP 105/68
== END 2017-07-13 03:27 | disposition home or self-care (01) ==
LOC: ER 17:37
DX: M48.56XA Collapsed vertebra, not elsewhere classified, lumbar region, initial encounter for fracture (principal); M47.27 Other spondylosis with radiculopathy, lumbosacral region; J45.909 Unspecified asthma, uncomplicated; E78.5 Hyperlipidemia, unspecified; F17.210 Nicotine dependence, cigarettes, uncomplicated; Z79.01 Long term (current) use of anticoagulants; Z83.3 Family history of diabetes mellitus; Z82.49 Family history of ischemic heart disease and other diseases of the circulatory system; Z88.0 Allergy status to penicillin; Z88.2 Allergy status to sulfonamides; Z88.6 Allergy status to analgesic agent; Z88.8 Allergy status to other drugs, medicaments and biological substances
CPT/HCPCS: 36415; 72131; 80053; 84702; 85025

== ENCOUNTER 2017-07-22 17:08 | Emergency (ER) | payer MEDICAID ==
[~2017-07-22] VITALS: Ht 165.1 cm; Wt 95.3 kg
[2017-07-22 18:13] LABS: Basophils # (auto) 0.1 uL
[2017-07-22 18:14] LABS: Basophils % (auto) 0.8 % (0.0-2.0); Eosinophils # (auto) 0.5 uL; Eosinophils % (auto) 4.1 % (0.0-7.0); Hematocrit 41.3 % (36.0-46.0); Hemoglobin 13.2 g/dL (12.2-16.2); Lymphocytes # (auto) 3.4 uL; Lymphocytes % (auto) 30.4 % (10.0-50.0); Mean Corpuscular Volume 81.3 fL (80.0-100.0); Monocytes # (auto) 0.9 uL; Monocytes % (auto) 7.6 % (0.0-12.0); Neutrophils # (auto) 6.5 uL; Neutrophils % (auto) 57.1 % (37.0-80.0); Platelet Count (auto) 262 10^3/uL (140-450); Red Blood Cells 5.08 10^6/uL (4.0-5.20); Red Cell Distribution Width 16.4 % (11.8-14.3); White Blood Cell 11.3 10^3/uL (4.4-10.8)
[2017-07-22 18:27] LABS: Alanine Aminotransferase 19 U/L (13-56); Albumin 2.9 g/dL (3.4-5.0); Anion Gap 7 (5-15); Aspartate Aminotransferase 13 U/L (15-37); BUN/Creatinine Ratio 14.3; Blood Alcohol < 3.0 mg/dL (0-5); Blood Urea Nitrogen 9 mg/dL (7-18); Calcium 8.1 mg/dL (8.5-10.1); Carbon Dioxide 21 mmol/L (21-32); Chloride 109 mmol/L (98-107); GFR African American 140 mL/min; GFR Non-African American 116 mL/min; Glucose 126 mg/dL (74-106); Potassium 3.7 mmol/L (3.5-5.1); Sodium 137 mmol/L (136-145)
[2017-07-22 18:30] LABS: Acetaminophen < 2.0 ug/mL (10-30); Alkaline Phosphatase 116 U/L (45-117); Bilirubin, Total 0.1 mg/dL (0.2-1.0); Salicylate 4.4 mg/dL (2.8-20.0); Total Protein 6.8 g/dL (6.4-8.2)
[2017-07-22 18:48] LABS: Alcohol, Urine < 3.0 mg/dL (0-5); Amphetamine Screen, Urine NEGATIVE (NEGATIVE); Barbiturate Scree,Urine POSITIVE (NEGATIVE); Benzodiazephine Screen, Urine NEGATIVE (NEGATIVE); Cannabinoid Screen, Urine NEGATIVE (NEGATIVE); Cocaine Screen, Urine NEGATIVE (NEGATIVE); Opiate Scree,Urine POSITIVE (NEGATIVE); Phencyclidine Screen, Urine NEGATIVE (NEGATIVE)
[2017-07-22 19:10] LABS: Urine Specific Gravity 1.013 (1.001-1.035)
[2017-07-22 19:14] LABS: Urine Blood Negative /uL (Negative)
[2017-07-22 19:26] LABS: Urine Bacteria 1+ /hpf (None Seen); Urine WBC 3 /hpf (0 - 5)
[2017-07-22 19:27] LABS: Urine Mucus FEW (None Seen)
[2017-07-22] MEDS ORDERED: ACETAMINOPHEN 325 MG TAB PO ONE (21:45)
[2017-07-23 05:00] VITALS: BP 110/62
== END 2017-07-23 05:31 | disposition home or self-care (01) ==
LOC: ER 17:10
DX: F20.9 Schizophrenia, unspecified (principal); R45.851 Suicidal ideations; F32.9 Major depressive disorder, single episode, unspecified; F41.9 Anxiety disorder, unspecified; J45.909 Unspecified asthma, uncomplicated; G35 Multiple sclerosis; F17.210 Nicotine dependence, cigarettes, uncomplicated; F12.10 Cannabis abuse, uncomplicated; Z90.710 Acquired absence of both cervix and uterus; Z83.3 Family history of diabetes mellitus; Z82.49 Family history of ischemic heart disease and other diseases of the circulatory system; Z43.1 Encounter for attention to gastrostomy; Z88.1 Allergy status to other antibiotic agents; Z88.6 Allergy status to analgesic agent; Z88.8 Allergy status to other drugs, medicaments and biological substances
CPT/HCPCS: 36415; 80053; 80307; 80320; 80329; 81001; 84702; 85025

== ENCOUNTER 2017-09-10 10:54 | Emergency (ER) | payer MEDICAID ==
[~2017-09-10] VITALS: Ht 165.1 cm; Wt 95.3 kg
[2017-09-10 16:42] VITALS: BP 108/60
[2017-09-10] MEDS ORDERED: SODIUM CHLORIDE 0.9% 1,000 ML IV ONE (16:54)
[2017-09-10] MEDS ORDERED: VANCOMYCIN 1GM/250ML 250 ML IV ONE (17:00)
[2017-09-10] MEDS ORDERED: MORPHINE SULFATE 4 MG/ML SYR/VIAL IV ONE (17:00)
[2017-09-10] MEDS ORDERED: PROMETHAZINE HCL 25 MG/ML 1ML IV PRN (17:00)
[2017-09-10 17:16] LABS: Basophils # (auto) 0.1 uL; Basophils % (auto) 0.7 % (0.0-2.0); Eosinophils # (auto) 0.7 uL; Hematocrit 44.7 % (36.0-46.0); Hemoglobin 14.9 g/dL (12.2-16.2); Lymphocytes # (auto) 3.8 uL; Lymphocytes % (auto) 29.1 % (10.0-50.0); Mean Corpuscular Hemoglobin 27.4 pg (28.0-32.0); Mean Corpuscular Hgb Conc. 33.4 g/dL (32.0-36.0); Monocytes # (auto) 0.9 uL; Monocytes % (auto) 6.9 % (0.0-12.0); Neutrophils # (auto) 7.6 uL; Neutrophils % (auto) 58.3 % (37.0-80.0); Nucleated Red Blood Cells % 0.1 %; Red Blood Cells 5.45 10^6/uL (4.0-5.20); Red Cell Distribution Width 17.9 % (11.8-14.3); White Blood Cell 13.1 10^3/uL (4.4-10.8)
[2017-09-10 17:35] LABS: Albumin 3.4 g/dL (3.4-5.0); Bilirubin, Total 0.3 mg/dL (0.2-1.0); Calcium 8.8 mg/dL (8.5-10.1); Magnesium 2.5 mg/dL (1.6-2.6); Potassium 3.9 mmol/L (3.5-5.1); Total Protein 8.1 g/dL (6.4-8.2)
[2017-09-10 17:51] LABS: Platelet Count (auto) 265 10^3/uL (140-450)
[2017-09-10] MEDS ORDERED: IOHEXOL 300 MG/ML 100ML BOTTLE IJ ONE (19:43)
[2017-09-10] MEDS ORDERED: LACTULOSE 20Gm/30ML SOLN PO ONE (22:15)
== END 2017-09-10 22:40 | disposition home or self-care (01) ==
LOC: ER 10:54
DX: G62.9 Polyneuropathy, unspecified (principal); R10.9 Unspecified abdominal pain; F19.20 Other psychoactive substance dependence, uncomplicated; F17.210 Nicotine dependence, cigarettes, uncomplicated; J45.909 Unspecified asthma, uncomplicated; G82.20 Paraplegia, unspecified; K21.9 Gastro-esophageal reflux disease without esophagitis; G89.29 Other chronic pain; G35 Multiple sclerosis; Z93.1 Gastrostomy status; Z90.710 Acquired absence of both cervix and uterus; Z79.01 Long term (current) use of anticoagulants; Z88.8 Allergy status to other drugs, medicaments and biological substances; Z88.0 Allergy status to penicillin
CPT/HCPCS: 36415; 71046; 74177; 80053; 83690; 83735; 84443; 84702; 85025; 87205; 96365; 96375; 99285; J2270; J2550; J3370; J7030; Q9967; 87077; 87186

== ENCOUNTER 2017-09-17 19:48 | Inpatient (IN) | payer MEDICAID ==
[~2017-09-17] VITALS: Ht 165.1 cm; Wt 99.7 kg
[2017-09-17 20:51] LABS: Basophils # (auto) 0 uL; Basophils % (auto) 0.5 % (0.0-2.0); Eosinophils # (auto) 0.5 uL; Hematocrit 43.5 % (36.0-46.0); Hemoglobin 14.2 g/dL (12.2-16.2); Lymphocytes # (auto) 3.8 uL; Lymphocytes % (auto) 38.9 % (10.0-50.0); Mean Corpuscular Hgb Conc. 32.5 g/dL (32.0-36.0); Mean Corpuscular Volume 82.9 fL (80.0-100.0); Monocytes # (auto) 0.6 uL; Neutrophils # (auto) 4.8 uL; Neutrophils % (auto) 49.6 % (37.0-80.0); Nucleated Red Blood Cells % 0.1 %; Platelet Count (auto) 296 10^3/uL (140-450); Red Blood Cells 5.25 10^6/uL (4.0-5.20); White Blood Cell 9.8 10^3/uL (4.4-10.8)
[2017-09-17 21:16] LABS: Alanine Aminotransferase 18 U/L (13-56); Albumin 3.2 g/dL (3.4-5.0); Alkaline Phosphatase 124 U/L (45-117); Anion Gap 9 (5-15); Aspartate Aminotransferase 17 U/L (15-37); BUN/Creatinine Ratio 11.5; Bilirubin, Total 0.2 mg/dL (0.2-1.0); Blood Urea Nitrogen 9 mg/dL (7-18); Calcium 8.8 mg/dL (8.5-10.1); Carbon Dioxide 23 mmol/L (21-32); Chloride 105 mmol/L (98-107); GFR African American 109 mL/min; GFR Non-African American 90 mL/min; Glucose 90 mg/dL (74-106); Potassium 3.7 mmol/L (3.5-5.1); Sodium 137 mmol/L (136-145); Total Protein 7.5 g/dL (6.4-8.2)
[2017-09-17] MEDS ORDERED: SODIUM CHLORIDE 0.9% 500 ML IVB ONE (22:06)
[2017-09-17] MEDS ORDERED: ONDANSETRON HCL 4 MG/2 ML VIAL IV ONE (22:15)
[2017-09-17] MEDS ORDERED: MORPHINE SULFATE 4 MG/ML SYR/VIAL IV ONE (22:15)
[2017-09-17 22:34] LABS: Amylase 27 U/L (25-115); Lipase 65 U/L (73-393)
[2017-09-18 00:09] LABS: Urine Bacteria NONE SEEN /hpf (None Seen); Urine Blood Negative /uL (Negative); Urine Specific Gravity 1.012 (1.001-1.035); Urine WBC 1 /hpf (0 - 5)
[2017-09-18] MEDS ORDERED: CLINDAMYCIN 900MG IV 50 ML IV ONE (02:00)
[2017-09-18] MEDS ORDERED: NITROGLYCERIN 0.4 MG SL TAB SL PRN (02:45)
[2017-09-18] MEDS ORDERED: MORPHINE SULFATE 4 MG/ML SYR/VIAL IV PRN (02:45)
[2017-09-18] MEDS ORDERED: ACETAMINOPHEN 325 MG TAB PO PRN (02:45)
[2017-09-18] MEDS ORDERED: TEMAZEPAM 15 MG CAP PO PRN (02:45)
[2017-09-18] MEDS ORDERED: HYDROcodone-ACET 5/325MG TAB PO PRN (02:45)
[2017-09-18] MEDS ORDERED: ALBUTEROL SULF 2.5 MG/0.5ML(0.5%) NEB SOLN NEB PRN (02:45)
[2017-09-18] MEDS: SODIUM CHLORIDE 0.9% 1,000 ML IV SCH ×2 (03:20→18:30)
[2017-09-18] MEDS: ONDANSETRON HCL 4 MG/2 ML VIAL IV PRN ×4 (05:19→23:55)
[2017-09-18] MEDS: MORPHINE SULFATE 4 MG/ML SYR/VIAL IV PRN ×4 (05:19→23:55)
[2017-09-18] MEDS ORDERED: GABAPENTIN 300 MG CAP PO SCH (06:00)
[2017-09-18] MEDS: CLINDAMYCIN 600MG IV 50 ML IV SCH ×3 (06:33→22:02)
[2017-09-18 07:26] LABS: INR 0.95 (0.9-1.15); Partial Thromboplastin Time 32.9 sec (22.64-33.71); Prothrombin Time 10.3 sec (9.37-12.3)
[2017-09-18 07:29] LABS: Albumin 2.8 g/dL (3.4-5.0); BUN/Creatinine Ratio 14.7; Bilirubin, Total 0.3 mg/dL (0.2-1.0); Calcium 8.4 mg/dL (8.5-10.1); Total Protein 6.5 g/dL (6.4-8.2)
[2017-09-18 09:26] VITALS: BP 113/59
[2017-09-18] MEDS: PANTOPRAZOLE 40 MG/10 ML VIAL IV SCH (10:00)
[2017-09-18] MEDS ORDERED: clonazePAM 0.5 MG TAB PO SCH (10:00)
[2017-09-18] MEDS ORDERED: CITALOPRAM HYDROBR 20 MG TAB PO SCH (10:00)
[2017-09-18 11:08] VITALS: BP 93/52
[2017-09-18 12:00] VITALS: BP 97/55
[2017-09-18] MEDS: GABAPENTIN 300 MG CAP PEG SCH ×2 (15:10→22:02)
[2017-09-18] MEDS ORDERED: WARFARIN SODIUM 10 MG TAB PO ONE (17:00)
[2017-09-18 17:06] VITALS: BP 102/61
[2017-09-18] MEDS ORDERED: ATORVASTATIN 20 MG TAB PO SCH (22:00)
[2017-09-18] MEDS: clonazePAM 0.5 MG TAB PEG SCH (22:02)
[2017-09-18] MEDS: ATORVASTATIN 20 MG TAB PEG SCH (22:02)
[2017-09-18] MEDS: Fibersource Hn 1 Liter GT SCH (22:45)
[2017-09-18 23:14] VITALS: BP 107/64
[2017-09-19] MEDS ORDERED: HYDROcodone-ACET 5/325MG TAB PEG PRN (01:45)
[2017-09-19] MEDS: TEMAZEPAM 15 MG CAP PEG PRN ×2 (01:48→23:33)
[2017-09-19] MEDS: SODIUM CHLORIDE 0.9% 1,000 ML IV SCH ×2 (04:04→16:04)
[2017-09-19] MEDS: MORPHINE SULFATE 4 MG/ML SYR/VIAL IV PRN ×5 (04:16→21:44)
[2017-09-19] MEDS: ONDANSETRON HCL 4 MG/2 ML VIAL IV PRN ×5 (04:16→21:39)
[2017-09-19 05:26] VITALS: BP 91/40
[2017-09-19] MEDS: CLINDAMYCIN 600MG IV 50 ML IV SCH (06:37)
[2017-09-19] MEDS: GABAPENTIN 300 MG CAP PEG SCH ×3 (06:37→21:29)
[2017-09-19 08:00] LABS: INR 0.93 (0.9-1.15); Partial Thromboplastin Time 35.2 sec (22.64-33.71); Prothrombin Time 10.1 sec (9.37-12.3)
[2017-09-19 08:01] LABS: Potassium 3.8 mmol/L (3.5-5.1)
[2017-09-19 08:05] LABS: Albumin 2.9 g/dL (3.4-5.0); Bilirubin, Total 0.1 mg/dL (0.2-1.0); Calcium 8.5 mg/dL (8.5-10.1); Total Protein 6.3 g/dL (6.4-8.2)
[2017-09-19] MEDS: clonazePAM 0.5 MG TAB PEG SCH ×2 (08:55→21:30)
[2017-09-19] MEDS: CITALOPRAM HYDROBR 20 MG TAB PEG SCH (08:55)
[2017-09-19] MEDS: PANTOPRAZOLE 40 MG/10 ML VIAL IV SCH (08:57)
[2017-09-19 09:00] VITALS: BP 100/69
[2017-09-19] MEDS ORDERED: FLUCONAZOLE 100 MG TAB PO ONE (10:15)
[2017-09-19 10:31] LABS: Basophils # (auto) 0 uL; Eosinophils # (auto) 0.3 uL; Monocytes # (auto) 0.4 uL
[2017-09-19 10:35] LABS: Basophils % (auto) 0.4 % (0.0-2.0); Eosinophils % (auto) 3.2 % (0.0-7.0); Hemoglobin 12.8 g/dL (12.2-16.2); Lymphocytes % (auto) 24.9 % (10.0-50.0); Mean Corpuscular Hemoglobin 26.6 pg (28.0-32.0); Mean Corpuscular Hgb Conc. 32.9 g/dL (32.0-36.0); Mean Corpuscular Volume 80.7 fL (80.0-100.0); Monocytes % (auto) 5.1 % (0.0-12.0); Neutrophils # (auto) 5.5 uL; Neutrophils % (auto) 66.4 % (37.0-80.0); Nucleated Red Blood Cells % 0.1 %; Platelet Count (auto) 275 10^3/uL (140-450); Red Blood Cells 4.83 10^6/uL (4.0-5.20); Red Cell Distribution Width 16.9 % (11.8-14.3); White Blood Cell 8.2 10^3/uL (4.4-10.8)
[2017-09-19 10:43] LABS: BUN/Creatinine Ratio 17.7; Calcium 8.3 mg/dL (8.5-10.1); Potassium 4.1 mmol/L (3.5-5.1)
[2017-09-19] MEDS ORDERED: AMPICILLIN INJ 1 GM in SODIUM CHL 0.9% 50 ML IV SCH (12:00)
[2017-09-19 13:01] VITALS: BP 103/66
[2017-09-19] MEDS: LINEZOLID 600MG TABLET PO SCH ×2 (13:35→21:30)
[2017-09-19 17:21] VITALS: BP 102/53
[2017-09-19] MEDS: ATORVASTATIN 20 MG TAB PEG SCH (21:29)
[2017-09-19 22:00] VITALS: BP 100/55
[2017-09-19] MEDS: Fibersource Hn 1 Liter GT SCH (22:23)
[2017-09-20] MEDS: ONDANSETRON HCL 4 MG/2 ML VIAL IV PRN ×5 (01:49→19:58)
[2017-09-20] MEDS: MORPHINE SULFATE 4 MG/ML SYR/VIAL IV PRN ×5 (01:49→19:58)
[2017-09-20] MEDS: SODIUM CHLORIDE 0.9% 1,000 ML IV SCH ×2 (04:34→17:02)
[2017-09-20 05:00] VITALS: BP 99/64
[2017-09-20] MEDS: GABAPENTIN 300 MG CAP PEG SCH ×3 (05:57→22:41)
[2017-09-20 09:00] VITALS: BP 101/64
[2017-09-20] MEDS: PANTOPRAZOLE 40 MG/10 ML VIAL IV SCH (10:45)
[2017-09-20] MEDS: CITALOPRAM HYDROBR 20 MG TAB PEG SCH (10:45)
[2017-09-20] MEDS: clonazePAM 0.5 MG TAB PEG SCH ×2 (10:46→22:41)
[2017-09-20] MEDS: LINEZOLID 600MG TABLET PO SCH ×2 (10:46→22:41)
[2017-09-20] MEDS: FLUCONAZOLE 100 MG TAB PO SCH (10:46)
[2017-09-20 13:00] VITALS: BP 100/67
[2017-09-20 17:00] VITALS: BP 101/64
[2017-09-20] MEDS: ATORVASTATIN 20 MG TAB PEG SCH (22:41)
[2017-09-21] MEDS: MORPHINE SULFATE 4 MG/ML SYR/VIAL IV PRN ×4 (00:28→15:11)
[2017-09-21] MEDS: ONDANSETRON HCL 4 MG/2 ML VIAL IV PRN ×4 (00:29→15:11)
[2017-09-21] MEDS: SODIUM CHLORIDE 0.9% 1,000 ML IV SCH (02:49)
[2017-09-21 05:28] VITALS: BP 105/60
[2017-09-21] MEDS: GABAPENTIN 300 MG CAP PEG SCH ×2 (05:59→14:00)
[2017-09-21 06:19] LABS: Basophils # (auto) 0 uL; Eosinophils # (auto) 0.3 uL; Eosinophils % (auto) 3.9 % (0.0-7.0); Monocytes # (auto) 0.8 uL; White Blood Cell 8.1 10^3/uL (4.4-10.8)
[2017-09-21 06:22] LABS: Basophils % (auto) 0.4 % (0.0-2.0); Hematocrit 37.5 % (36.0-46.0); Hemoglobin 12.2 g/dL (12.2-16.2); Lymphocytes # (auto) 2.6 uL; Lymphocytes % (auto) 31.9 % (10.0-50.0); Mean Corpuscular Hemoglobin 26.8 pg (28.0-32.0); Mean Corpuscular Hgb Conc. 32.6 g/dL (32.0-36.0); Monocytes % (auto) 9.6 % (0.0-12.0); Neutrophils # (auto) 4.4 uL; Neutrophils % (auto) 54.2 % (37.0-80.0); Nucleated Red Blood Cells % 0.2 %; Platelet Count (auto) 234 10^3/uL (140-450); Red Blood Cells 4.58 10^6/uL (4.0-5.20); Red Cell Distribution Width 16.8 % (11.8-14.3)
[2017-09-21 06:46] LABS: Albumin 2.9 g/dL (3.4-5.0); BUN/Creatinine Ratio 10.4; Bilirubin, Total 0.2 mg/dL (0.2-1.0); Calcium 8.3 mg/dL (8.5-10.1); Potassium 3.6 mmol/L (3.5-5.1); Total Protein 6.4 g/dL (6.4-8.2)
[2017-09-21 08:00] VITALS: BP 101/62
[2017-09-21] MEDS: clonazePAM 0.5 MG TAB PEG SCH (10:48)
[2017-09-21] MEDS: FLUCONAZOLE 100 MG TAB PO SCH (10:48)
[2017-09-21] MEDS: CITALOPRAM HYDROBR 20 MG TAB PEG SCH (10:48)
[2017-09-21] MEDS: PANTOPRAZOLE 40 MG/10 ML VIAL IV SCH (10:48)
[2017-09-21] MEDS: LINEZOLID 600MG TABLET PO SCH (10:49)
[2017-09-21 12:46] VITALS: BP 124/62
[2017-09-21 17:00] VITALS: BP 105/60
== END 2017-09-21 17:55 | disposition home or self-care (01) | DRG 383 ==
LOC: ER 19:48 → TELE 19:49 → TELE-WESTW 09-18 09:13
PROVIDERS: ADMIT Nurse Practitioner; ATTEND Internal Medicine
DX: L03.311 Cellulitis of abdominal wall (principal); E44.0 Moderate protein-calorie malnutrition; G35 Multiple sclerosis; R13.10 Dysphagia, unspecified; Z93.1 Gastrostomy status; F41.9 Anxiety disorder, unspecified; G40.909 Epilepsy, unspecified, not intractable, without status epilepticus; J45.909 Unspecified asthma, uncomplicated; F31.9 Bipolar disorder, unspecified; G89.4 Chronic pain syndrome; B95.2 Enterococcus as the cause of diseases classified elsewhere; F12.90 Cannabis use, unspecified, uncomplicated; F19.20 Other psychoactive substance dependence, uncomplicated; F17.210 Nicotine dependence, cigarettes, uncomplicated; Z90.710 Acquired absence of both cervix and uterus; Z88.0 Allergy status to penicillin; Z88.8 Allergy status to other drugs, medicaments and biological substances; Z88.6 Allergy status to analgesic agent; Z88.2 Allergy status to sulfonamides; Z82.49 Family history of ischemic heart disease and other diseases of the circulatory system; Z83.3 Family history of diabetes mellitus; Z68.36 Body mass index [BMI] 36.0-36.9, adult; Z74.01 Bed confinement status
CPT/HCPCS: 36415; 51702; 80048; 80053; 81001; 82150; 83605; 83690; 84484; 85025; 85610; 85730; 87081; 87086; 92610; 94761; 96361; 96365; 96375; C9113; J1642; J2405; J3490

== ENCOUNTER 2017-10-04 16:31 | Emergency (ER) | payer MEDICAID ==
[~2017-10-04] VITALS: Ht 165.1 cm; Wt 94.8 kg
[2017-10-05] MEDS ORDERED: ONDANSETRON HCL 4 MG/2 ML VIAL IV ONE (01:00)
[2017-10-05] MEDS ORDERED: MORPHINE SULFATE 4 MG/ML SYR/VIAL IV ONE (01:00)
[2017-10-05 01:28] LABS: Basophils # (auto) 0.1 uL; Basophils % (auto) 0.8 % (0.0-2.0); Eosinophils # (auto) 0.5 uL; Eosinophils % (auto) 4.8 % (0.0-7.0); Hematocrit 41.7 % (36.0-46.0); Hemoglobin 13.8 g/dL (12.2-16.2); Lymphocytes # (auto) 3.9 uL; Lymphocytes % (auto) 40.7 % (10.0-50.0); Mean Corpuscular Hemoglobin 27.1 pg (28.0-32.0); Mean Corpuscular Hgb Conc. 33.2 g/dL (32.0-36.0); Mean Corpuscular Volume 81.7 fL (80.0-100.0); Monocytes # (auto) 0.8 uL; Monocytes % (auto) 8.1 % (0.0-12.0); Neutrophils # (auto) 4.4 uL; Neutrophils % (auto) 45.6 % (37.0-80.0); Nucleated Red Blood Cells % 0.1 %; Platelet Count (auto) 315 10^3/uL (140-450); Red Cell Distribution Width 16.8 % (11.8-14.3); White Blood Cell 9.6 10^3/uL (4.4-10.8)
[2017-10-05 01:42] LABS: Albumin 3.4 g/dL (3.4-5.0); BUN/Creatinine Ratio 21.9; Calcium 9.3 mg/dL (8.5-10.1); Potassium 3.9 mmol/L (3.5-5.1)
[2017-10-05 01:45] LABS: Bilirubin, Total 0.2 mg/dL (0.2-1.0); Total Protein 7.4 g/dL (6.4-8.2)
[2017-10-05 05:30] VITALS: BP 97/50
== END 2017-10-05 05:37 | disposition home or self-care (01) ==
LOC: ER 16:36
DX: K58.9 Irritable bowel syndrome, unspecified (principal); G35 Multiple sclerosis; G89.29 Other chronic pain; F17.210 Nicotine dependence, cigarettes, uncomplicated; F12.10 Cannabis abuse, uncomplicated; J45.909 Unspecified asthma, uncomplicated; Z90.710 Acquired absence of both cervix and uterus; Z79.899 Other long term (current) drug therapy; Z88.0 Allergy status to penicillin; Z88.1 Allergy status to other antibiotic agents; Z88.2 Allergy status to sulfonamides; Z88.8 Allergy status to other drugs, medicaments and biological substances
CPT/HCPCS: 36415; 74176; 80053; 82150; 83690; 84702; 85025; 96374; 96375; 99285; J2270; J2405

== ENCOUNTER 2017-10-14 15:17 | Emergency (ER) | payer MEDICAID ==
[~2017-10-14] VITALS: Ht 165.1 cm; Wt 96.2 kg
[2017-10-14 16:28] LABS: Basophils # (auto) 0 uL; Basophils % (auto) 0.4 % (0.0-2.0); Eosinophils # (auto) 0.3 uL; Hematocrit 41.6 % (36.0-46.0); Hemoglobin 13.7 g/dL (12.2-16.2); Lymphocytes # (auto) 2.8 uL; Lymphocytes % (auto) 29.4 % (10.0-50.0); Mean Corpuscular Hemoglobin 27.5 pg (28.0-32.0); Mean Corpuscular Hgb Conc. 32.9 g/dL (32.0-36.0); Mean Corpuscular Volume 83.4 fL (80.0-100.0); Monocytes # (auto) 0.6 uL; Monocytes % (auto) 6.5 % (0.0-12.0); Neutrophils # (auto) 5.8 uL; Neutrophils % (auto) 60.7 % (37.0-80.0); Nucleated Red Blood Cells % 0.1 %; Platelet Count (auto) 298 10^3/uL (140-450); Red Blood Cells 4.99 10^6/uL (4.0-5.20); Red Cell Distribution Width 17.1 % (11.8-14.3); White Blood Cell 9.6 10^3/uL (4.4-10.8)
[2017-10-14 16:44] LABS: Albumin 3.3 g/dL (3.4-5.0); BUN/Creatinine Ratio 14.5; Bilirubin, Total 0.2 mg/dL (0.2-1.0); Calcium 8.4 mg/dL (8.5-10.1); Total Protein 7.4 g/dL (6.4-8.2)
[2017-10-14 18:17] VITALS: BP 111/40
== END 2017-10-14 18:22 | disposition home or self-care (01) ==
LOC: ER 15:20
DX: T81.30XA Disruption of wound, unspecified, initial encounter (principal); F17.210 Nicotine dependence, cigarettes, uncomplicated; J45.909 Unspecified asthma, uncomplicated; F41.9 Anxiety disorder, unspecified; Z88.6 Allergy status to analgesic agent; Z88.0 Allergy status to penicillin; Z88.2 Allergy status to sulfonamides; Z88.8 Allergy status to other drugs, medicaments and biological substances
CPT/HCPCS: 36415; 80053; 85025

== ENCOUNTER 2017-10-17 11:44 | Emergency (ER) | payer MEDICAID ==
[~2017-10-17] VITALS: Ht 165.1 cm; Wt 96.2 kg
[2017-10-17] MEDS ORDERED: MORPHINE SULFATE 4 MG/ML SYR/VIAL IM ONE (12:45)
[2017-10-17 13:03] VITALS: BP 114/63
== END 2017-10-17 14:47 | disposition left against medical advice (07) ==
LOC: ER 11:44
DX: M48.56XA Collapsed vertebra, not elsewhere classified, lumbar region, initial encounter for fracture (principal); J45.909 Unspecified asthma, uncomplicated; F17.210 Nicotine dependence, cigarettes, uncomplicated; F12.10 Cannabis abuse, uncomplicated; F10.10 Alcohol abuse, uncomplicated; Z90.710 Acquired absence of both cervix and uterus; Z88.0 Allergy status to penicillin; Z88.2 Allergy status to sulfonamides; Z88.6 Allergy status to analgesic agent
CPT/HCPCS: 72131; 96372; 99284; J2270

== ENCOUNTER 2017-11-22 14:31 | Emergency (ER) | payer MEDICAID, OTHER ==
[~2017-11-22] VITALS: Ht 165.1 cm; Wt 94.3 kg
[~2017-11-22 14:31] MED LIST changes: -MORP1SOL7 PO; -WARF5TAB PO; -WARF7.5T20
[2017-11-22 15:25] LABS: Basophils # (auto) 0 uL; Basophils % (auto) 0.3 % (0.0-2.0); Eosinophils # (auto) 0.5 uL; Eosinophils % (auto) 5.2 % (0.0-7.0); Hematocrit 41.9 % (36.0-46.0); Hemoglobin 14.2 g/dL (12.2-16.2); Lymphocytes % (auto) 38.7 % (10.0-50.0); Mean Corpuscular Hemoglobin 28.1 pg (28.0-32.0); Mean Corpuscular Hgb Conc. 33.7 g/dL (32.0-36.0); Mean Corpuscular Volume 83.3 fL (80.0-100.0); Monocytes # (auto) 0.8 uL; Monocytes % (auto) 7.7 % (0.0-12.0); Neutrophils # (auto) 4.9 uL; Neutrophils % (auto) 48.1 % (37.0-80.0); Nucleated Red Blood Cells % 0.1 %; Platelet Count (auto) 267 10^3/uL (140-450); Red Blood Cells 5.04 10^6/uL (4.0-5.20); Red Cell Distribution Width 14.9 % (11.8-14.3); White Blood Cell 10.3 10^3/uL (4.4-10.8)
[2017-11-22 15:43] LABS: Albumin 3.3 g/dL (3.4-5.0); Calcium 8.8 mg/dL (8.5-10.1); Potassium 3.8 mmol/L (3.5-5.1)
[2017-11-22 15:46] LABS: Bilirubin, Total 0.2 mg/dL (0.2-1.0); Total Protein 7.6 g/dL (6.4-8.2)
[2017-11-22 18:35] VITALS: BP 110/70
== END 2017-11-22 20:10 | disposition home or self-care (01) ==
LOC: ER 14:31
DX: R10.13 Epigastric pain (principal); R11.2 Nausea with vomiting, unspecified; G35 Multiple sclerosis; J45.909 Unspecified asthma, uncomplicated; F17.210 Nicotine dependence, cigarettes, uncomplicated; Z98.890 Other specified postprocedural states; Z48.01 Encounter for change or removal of surgical wound dressing; Z90.710 Acquired absence of both cervix and uterus; Z88.8 Allergy status to other drugs, medicaments and biological substances; Z88.1 Allergy status to other antibiotic agents
CPT/HCPCS: 36415; 74176; 80053; 84702; 85025

== ENCOUNTER 2017-11-24 15:32 | Inpatient (IN) | payer MEDICAID, OTHER ==
[~2017-11-24] VITALS: Ht 165.1 cm; Wt 96.3 kg
[2017-11-24 17:09] LABS: Basophils # (auto) 0 uL; Basophils % (auto) 0.4 % (0.0-2.0); Eosinophils # (auto) 0.3 uL; Eosinophils % (auto) 2.9 % (0.0-7.0); Hematocrit 42.5 % (36.0-46.0); Hemoglobin 13.9 g/dL (12.2-16.2); Lymphocytes % (auto) 33.7 % (10.0-50.0); Mean Corpuscular Hemoglobin 27.3 pg (28.0-32.0); Mean Corpuscular Hgb Conc. 32.8 g/dL (32.0-36.0); Mean Corpuscular Volume 83.4 fL (80.0-100.0); Monocytes # (auto) 0.7 uL; Monocytes % (auto) 5.6 % (0.0-12.0); Neutrophils # (auto) 6.8 uL; Neutrophils % (auto) 57.4 % (37.0-80.0); Platelet Count (auto) 257 10^3/uL (140-450); Red Cell Distribution Width 15.2 % (11.8-14.3); White Blood Cell 11.8 10^3/uL (4.4-10.8)
[2017-11-24 17:22] LABS: Albumin 3.2 g/dL (3.4-5.0); Potassium 3.6 mmol/L (3.5-5.1)
[2017-11-24 17:24] LABS: BUN/Creatinine Ratio 13.4
[2017-11-24 17:27] LABS: Bilirubin, Total 0.3 mg/dL (0.2-1.0); Total Protein 7.3 g/dL (6.4-8.2)
[2017-11-25] MEDS ORDERED: IBUPROFEN 600 MG TAB PO ONE (04:15)
[2017-11-25] MEDS ORDERED: VANCOMYCIN 1GM/250ML 250 ML IV ONE (04:15)
[2017-11-25] MEDS ORDERED: ACETAMINOPHEN 325 MG TAB PO PRN (07:00)
[2017-11-25] MEDS ORDERED: HYDROcodone-ACET 5/325MG TAB PO PRN (07:00)
[2017-11-25] MEDS: ENOXAPARIN SOD 40 MG/0.4 ML SYRINGE SC SCH (10:00)
[2017-11-25] MEDS: FAMOTIDINE 20 MG TAB PO SCH ×2 (10:16→21:46)
[2017-11-25] MEDS: CITALOPRAM HYDROBR 20 MG TAB PO SCH (10:17)
[2017-11-25] MEDS ORDERED: cefTRIAXone 1GM/10ml IVPUSH 10 ML IV ONE (11:00)
[2017-11-25 12:06] VITALS: BP 98/47
[2017-11-25] MEDS: cefTRIAXone 1GM/10ml IVPUSH 10 ML IV SCH (12:51)
[2017-11-25] MEDS: MORPHINE SULFATE 8mg/ml INJ SDV IV PRN ×3 (12:55→21:45)
[2017-11-25] MEDS: ONDANSETRON HCL 4 MG/2 ML VIAL IV PRN ×3 (12:56→21:45)
[2017-11-25] MEDS: CLINDAMYCIN 600MG IV 50 ML IV SCH ×2 (14:00→21:47)
[2017-11-25] MEDS: GABAPENTIN 400 MG CAP PO SCH ×2 (14:06→21:46)
[2017-11-25 16:00] VITALS: BP 105/66
[2017-11-25 20:00] VITALS: BP 100/51
[2017-11-25] MEDS: ATORVASTATIN 20 MG TAB PO SCH (21:52)
[2017-11-25 22:00] VITALS: BP 100/51
[2017-11-26] MEDS: TEMAZEPAM 15 MG CAP PO PRN (00:22)
[2017-11-26] MEDS: MORPHINE SULFATE 8mg/ml INJ SDV IV PRN ×5 (03:37→23:03)
[2017-11-26] MEDS: ONDANSETRON HCL 4 MG/2 ML VIAL IV PRN ×5 (03:38→23:03)
[2017-11-26 05:00] VITALS: BP 95/64
[2017-11-26 05:58] LABS: Basophils # (auto) 0 uL; Basophils % (auto) 0.4 % (0.0-2.0); Eosinophils # (auto) 0.4 uL; Eosinophils % (auto) 4.8 % (0.0-7.0); Hematocrit 38.9 % (36.0-46.0); Hemoglobin 12.7 g/dL (12.2-16.2); Lymphocytes # (auto) 3.1 uL; Lymphocytes % (auto) 41.8 % (10.0-50.0); Mean Corpuscular Hemoglobin 27.3 pg (28.0-32.0); Mean Corpuscular Hgb Conc. 32.7 g/dL (32.0-36.0); Mean Corpuscular Volume 83.3 fL (80.0-100.0); Monocytes # (auto) 0.6 uL; Neutrophils # (auto) 3.4 uL; Nucleated Red Blood Cells % 0.2 %; Platelet Count (auto) 220 10^3/uL (140-450); Red Blood Cells 4.67 10^6/uL (4.0-5.20); Red Cell Distribution Width 14.9 % (11.8-14.3); White Blood Cell 7.5 10^3/uL (4.4-10.8)
[2017-11-26] MEDS: CLINDAMYCIN 600MG IV 50 ML IV SCH ×3 (06:10→22:32)
[2017-11-26] MEDS: GABAPENTIN 400 MG CAP PO SCH ×3 (06:15→22:33)
[2017-11-26 06:47] LABS: Albumin 2.8 g/dL (3.4-5.0); BUN/Creatinine Ratio 18.6; Bilirubin, Total 0.2 mg/dL (0.2-1.0); Calcium 8.2 mg/dL (8.5-10.1); Potassium 3.6 mmol/L (3.5-5.1); Total Protein 6.2 g/dL (6.4-8.2)
[2017-11-26 07:56] VITALS: BP 96/48
[2017-11-26] MEDS ORDERED: IOHEXOL 300 MG/ML 100ML BOTTLE IJ ONE (09:30)
[2017-11-26] MEDS: FAMOTIDINE 20 MG TAB PO SCH ×2 (09:31→22:34)
[2017-11-26] MEDS: cefTRIAXone 1GM/10ml IVPUSH 10 ML IV SCH (09:32)
[2017-11-26] MEDS: CITALOPRAM HYDROBR 20 MG TAB PO SCH (09:32)
[2017-11-26] MEDS: ENOXAPARIN SOD 40 MG/0.4 ML SYRINGE SC SCH (10:00)
[2017-11-26 12:13] VITALS: BP 90/46
[2017-11-26 21:38] VITALS: BP 102/55
[2017-11-26] MEDS: ATORVASTATIN 20 MG TAB PO SCH (22:33)
[2017-11-27] VITALS (7 sets, daily range): BP systolic 94–115; BP diastolic 46–70
[2017-11-27] MEDS: TEMAZEPAM 15 MG CAP PO PRN ×2 (02:44→23:52)
[2017-11-27] MEDS: MORPHINE SULFATE 8mg/ml INJ SDV IV PRN ×5 (03:08→21:58)
[2017-11-27] MEDS: ONDANSETRON HCL 4 MG/2 ML VIAL IV PRN ×5 (03:09→21:58)
[2017-11-27] MEDS: GABAPENTIN 400 MG CAP PO SCH ×3 (06:11→21:49)
[2017-11-27] MEDS: CLINDAMYCIN 600MG IV 50 ML IV SCH ×3 (06:11→21:49)
[2017-11-27] MEDS: cefTRIAXone 1GM/10ml IVPUSH 10 ML IV SCH (09:04)
[2017-11-27] MEDS: ENOXAPARIN SOD 40 MG/0.4 ML SYRINGE SC SCH (10:00)
[2017-11-27] MEDS: FAMOTIDINE 20 MG TAB PO SCH ×2 (10:43→21:49)
[2017-11-27] MEDS: CITALOPRAM HYDROBR 20 MG TAB PO SCH (10:43)
[2017-11-27] MEDS: ATORVASTATIN 20 MG TAB PO SCH (21:49)
[2017-11-28] MEDS: MORPHINE SULFATE 8mg/ml INJ SDV IV PRN ×4 (03:27→20:04)
[2017-11-28] MEDS: ONDANSETRON HCL 4 MG/2 ML VIAL IV PRN ×3 (03:27→19:52)
[2017-11-28 04:55] VITALS: BP 84/57
[2017-11-28] MEDS: CLINDAMYCIN 600MG IV 50 ML IV SCH ×3 (06:13→21:07)
[2017-11-28] MEDS: GABAPENTIN 400 MG CAP PO SCH ×3 (06:17→21:06)
[2017-11-28 06:23] LABS: Basophils # (auto) 0 uL; Basophils % (auto) 0.3 % (0.0-2.0); Eosinophils # (auto) 0.4 uL; Eosinophils % (auto) 5.6 % (0.0-7.0); Hematocrit 37.6 % (36.0-46.0); Hemoglobin 12.6 g/dL (12.2-16.2); Lymphocytes # (auto) 2.7 uL; Lymphocytes % (auto) 33.6 % (10.0-50.0); Mean Corpuscular Hemoglobin 27.7 pg (28.0-32.0); Mean Corpuscular Hgb Conc. 33.4 g/dL (32.0-36.0); Mean Corpuscular Volume 82.9 fL (80.0-100.0); Monocytes # (auto) 0.6 uL; Monocytes % (auto) 7.7 % (0.0-12.0); Neutrophils # (auto) 4.2 uL; Neutrophils % (auto) 52.8 % (37.0-80.0); Nucleated Red Blood Cells % 0.1 %; Platelet Count (auto) 213 10^3/uL (140-450); Red Blood Cells 4.54 10^6/uL (4.0-5.20); Red Cell Distribution Width 15.1 % (11.8-14.3)
[2017-11-28 06:41] LABS: Calcium 8.4 mg/dL (8.5-10.1); Potassium 3.5 mmol/L (3.5-5.1)
[2017-11-28 06:43] LABS: BUN/Creatinine Ratio 18.3
[2017-11-28] MEDS: cefTRIAXone 1GM/10ml IVPUSH 10 ML IV SCH (08:41)
[2017-11-28 08:49] VITALS: BP 109/60
[2017-11-28] MEDS: ENOXAPARIN SOD 40 MG/0.4 ML SYRINGE SC SCH (10:24)
[2017-11-28] MEDS: FAMOTIDINE 20 MG TAB PO SCH ×2 (10:24→21:06)
[2017-11-28] MEDS: CITALOPRAM HYDROBR 20 MG TAB PO SCH (10:24)
[2017-11-28] MEDS ORDERED: Isosource 1.5 Cal 1 Liter GT SCH (11:45)
[2017-11-28 12:00] VITALS: BP 109/66
[2017-11-28] MEDS ORDERED: ISOSORBIDE DINITRATE 10 MG TAB PO SCH (12:00)
[2017-11-28 17:00] VITALS: BP 114/74
[2017-11-28] MEDS: ATORVASTATIN 20 MG TAB PO SCH (21:06)
[2017-11-28] MEDS: TEMAZEPAM 15 MG CAP PO PRN (21:07)
[2017-11-28 22:00] VITALS: BP 118/79
[2017-11-29] MEDS: MORPHINE SULFATE 8mg/ml INJ SDV IV PRN ×3 (00:30→12:37)
[2017-11-29] MEDS: ONDANSETRON HCL 4 MG/2 ML VIAL IV PRN ×3 (00:30→12:37)
[2017-11-29 04:55] VITALS: BP 106/59
[2017-11-29] MEDS: CLINDAMYCIN 600MG IV 50 ML IV SCH (05:58)
[2017-11-29] MEDS: GABAPENTIN 400 MG CAP PO SCH (05:59)
[2017-11-29] MEDS: cefTRIAXone 1GM/10ml IVPUSH 10 ML IV SCH (08:49)
[2017-11-29 09:00] VITALS: BP 109/60
[2017-11-29] MEDS: FAMOTIDINE 20 MG TAB PO SCH (10:22)
[2017-11-29] MEDS: CITALOPRAM HYDROBR 20 MG TAB PO SCH (10:22)
[2017-11-29] MEDS: ENOXAPARIN SOD 40 MG/0.4 ML SYRINGE SC SCH (10:22)
== END 2017-11-29 13:10 | disposition home health service (06) | DRG 721 ==
LOC: ER 15:42 → OVERFLOW 15:43 → EAST 11-25 08:32
PROVIDERS: ADMIT Nurse Practitioner; ATTEND Internal Medicine
DX: T81.4XXA Infection following a procedure, initial encounter (principal); E43 Unspecified severe protein-calorie malnutrition; L03.311 Cellulitis of abdominal wall; F17.210 Nicotine dependence, cigarettes, uncomplicated; D72.823 Leukemoid reaction; E66.9 Obesity, unspecified; F11.20 Opioid dependence, uncomplicated; G35 Multiple sclerosis; J45.909 Unspecified asthma, uncomplicated; Z82.49 Family history of ischemic heart disease and other diseases of the circulatory system; Z83.3 Family history of diabetes mellitus; Z90.710 Acquired absence of both cervix and uterus; Z93.1 Gastrostomy status; Y83.8 Other surgical procedures as the cause of abnormal reaction of the patient, or of later complication, without mention of misadventure at the time of the procedure; Y92.89 Other specified places as the place of occurrence of the external cause; B95.5 Unspecified streptococcus as the cause of diseases classified elsewhere; F41.9 Anxiety disorder, unspecified; F31.9 Bipolar disorder, unspecified; Z88.6 Allergy status to analgesic agent; Z88.0 Allergy status to penicillin; Z88.2 Allergy status to sulfonamides; Z88.8 Allergy status to other drugs, medicaments and biological substances; Z68.35 Body mass index [BMI] 35.0-35.9, adult
CPT/HCPCS: 36415; 74177; 80048; 80053; 85025; 87081; 87205; 96365; 96375; 96376; J2270; J2405; J3490

== ENCOUNTER 2017-12-07 14:09 | Emergency (ER) | payer MEDICAID, OTHER ==
[~2017-12-07] VITALS: Ht 165.1 cm; Wt 95.7 kg
[2017-12-07 14:50] LABS: Urine Bacteria NONE SEEN /hpf (None Seen); Urine Blood Negative /uL (Negative); Urine Specific Gravity 1.002 (1.001-1.035); Urine WBC <1 /hpf (0 - 5)
[2017-12-07] MEDS ORDERED: SODIUM CHLORIDE 0.9% 500 ML IVB ONE (14:53)
[2017-12-07] MEDS ORDERED: MORPHINE SULFATE 8mg/ml INJ SDV IV ONE (15:00)
[2017-12-07] MEDS ORDERED: ONDANSETRON HCL 4 MG/2 ML VIAL IV ONE (15:00)
[2017-12-07 15:25] LABS: Basophils # (auto) 0.1 uL; Basophils % (auto) 0.8 % (0.0-2.0); Eosinophils # (auto) 0.3 uL; Eosinophils % (auto) 3.1 % (0.0-7.0); Hematocrit 42.5 % (36.0-46.0); Hemoglobin 14.1 g/dL (12.2-16.2); Lymphocytes # (auto) 3.2 uL; Lymphocytes % (auto) 36.9 % (10.0-50.0); Mean Corpuscular Hemoglobin 27.7 pg (28.0-32.0); Mean Corpuscular Hgb Conc. 33.2 g/dL (32.0-36.0); Mean Corpuscular Volume 83.5 fL (80.0-100.0); Monocytes # (auto) 0.7 uL; Monocytes % (auto) 7.7 % (0.0-12.0); Neutrophils # (auto) 4.4 uL; Neutrophils % (auto) 51.5 % (37.0-80.0); Platelet Count (auto) 286 10^3/uL (140-450); Red Blood Cells 5.09 10^6/uL (4.0-5.20); Red Cell Distribution Width 15.3 % (11.8-14.3); White Blood Cell 8.6 10^3/uL (4.4-10.8)
[2017-12-07] MEDS ORDERED: MORPHINE SULFATE INJECTION 1 ML ONE (15:33)
[2017-12-07 15:46] LABS: Albumin 3.2 g/dL (3.4-5.0); BUN/Creatinine Ratio 17.2; Bilirubin, Total 0.2 mg/dL (0.2-1.0); Calcium 8.8 mg/dL (8.5-10.1); Total Protein 7.1 g/dL (6.4-8.2)
[2017-12-07 16:08] LABS: Magnesium 2.3 mg/dL (1.6-2.6)
[2017-12-07 17:30] VITALS: BP 99/59
== END 2017-12-07 17:31 | disposition home or self-care (01) ==
LOC: ER 14:09
DX: F19.20 Other psychoactive substance dependence, uncomplicated (principal); F17.210 Nicotine dependence, cigarettes, uncomplicated; G89.29 Other chronic pain; R10.84 Generalized abdominal pain; R11.2 Nausea with vomiting, unspecified; J45.909 Unspecified asthma, uncomplicated; E78.5 Hyperlipidemia, unspecified; Z88.8 Allergy status to other drugs, medicaments and biological substances; Z88.0 Allergy status to penicillin; Z88.1 Allergy status to other antibiotic agents; Z90.710 Acquired absence of both cervix and uterus
CPT/HCPCS: 36415; 80053; 81001; 83690; 83735; 85025; 94761; 96361; 96374; 96375; 99284; J2270; J2405; J7030

== ENCOUNTER 2018-02-04 20:13 | Emergency (ER) | payer OTHER ==
[~2018-02-04] VITALS: Ht 165.1 cm; Wt 95.7 kg
[~2018-02-04 20:13] MED LIST changes: +CLON0.5T10 PO; -CLON0.5T3 PO
[2018-02-04 20:31] VITALS: BP 128/61
[2018-02-04] MEDS ORDERED: GASTROGRAFIN 30 ML SOL ONE (20:50)
== END 2018-02-05 00:20 | disposition left against medical advice (07) ==
LOC: ER 20:13
DX: R13.19 Other dysphagia (principal); Z53.21 Procedure and treatment not carried out due to patient leaving prior to being seen by health care provider
CPT/HCPCS: 74018; 99281; Q9963

== ENCOUNTER 2018-02-05 10:01 | Emergency (ER) | payer MEDICAID, OTHER ==
[~2018-02-05] VITALS: Ht 165.1 cm; Wt 95.7 kg
[2018-02-05] MEDS ORDERED: HYDROcodone-ACET 10/325MG TAB PO ONE (12:30)
[2018-02-05 13:29] LABS: Basophils # (auto) 0.1 uL; Basophils % (auto) 0.6 % (0.0-2.0); Eosinophils # (auto) 0.2 uL; Eosinophils % (auto) 2.3 % (0.0-7.0); Hematocrit 42.8 % (36.0-46.0); Hemoglobin 14.6 g/dL (12.2-16.2); Lymphocytes # (auto) 2.5 uL; Lymphocytes % (auto) 28.8 % (10.0-50.0); Mean Corpuscular Hemoglobin 28.5 pg (28.0-32.0); Mean Corpuscular Hgb Conc. 34.2 g/dL (32.0-36.0); Mean Corpuscular Volume 83.5 fL (80.0-100.0); Monocytes # (auto) 0.6 uL; Monocytes % (auto) 6.7 % (0.0-12.0); Neutrophils # (auto) 5.4 uL; Neutrophils % (auto) 61.6 % (37.0-80.0); Nucleated Red Blood Cells % 0.1 %; Platelet Count (auto) 247 10^3/uL (140-450); Red Blood Cells 5.12 10^6/uL (4.0-5.20); Red Cell Distribution Width 15.7 % (11.8-14.3); White Blood Cell 8.8 10^3/uL (4.4-10.8)
[2018-02-05 13:43] LABS: INR 0.92 (0.9-1.15); Partial Thromboplastin Time 31.9 sec (23.78-33.04); Prothrombin Time 9.9 sec (9.27-12.13)
[2018-02-05 13:43] LABS: Urine Bacteria NONE SEEN /hpf (None Seen); Urine Blood Negative /uL (Negative); Urine Mucus FEW (None Seen); Urine Specific Gravity 1.038 (1.001-1.035); Urine WBC 3 /hpf (0 - 5)
[2018-02-05 13:50] LABS: Albumin 3.5 g/dL (3.4-5.0); BUN/Creatinine Ratio 13.2; Bilirubin, Total 0.5 mg/dL (0.2-1.0); Calcium 8.8 mg/dL (8.5-10.1); Potassium 3.8 mmol/L (3.5-5.1); Total Protein 7.6 g/dL (6.4-8.2)
[2018-02-05 14:23] VITALS: BP 128/57
== END 2018-02-05 14:34 | disposition home or self-care (01) ==
LOC: ER 10:01
DX: K29.70 Gastritis, unspecified, without bleeding (principal); F17.210 Nicotine dependence, cigarettes, uncomplicated; F12.10 Cannabis abuse, uncomplicated; J45.909 Unspecified asthma, uncomplicated; E78.5 Hyperlipidemia, unspecified; Z90.710 Acquired absence of both cervix and uterus; Z79.899 Other long term (current) drug therapy; Z88.0 Allergy status to penicillin; Z88.2 Allergy status to sulfonamides
CPT/HCPCS: 36415; 74176; 80053; 81001; 85025; 85610; 85730

== ENCOUNTER 2018-02-16 16:18 | Observation (INO) | payer MEDICAID, OTHER ==
[~2018-02-16] VITALS: Ht 165.1 cm; Wt 95.7 kg
[2018-02-16 17:20] LABS: Basophils # (auto) 0.1 uL; Basophils % (auto) 0.6 % (0.0-2.0); Eosinophils # (auto) 0.2 uL; Eosinophils % (auto) 2.4 % (0.0-7.0); Hematocrit 42.2 % (36.0-46.0); Hemoglobin 14.1 g/dL (12.2-16.2); Lymphocytes # (auto) 2.7 uL; Lymphocytes % (auto) 33.2 % (10.0-50.0); Mean Corpuscular Hemoglobin 28.4 pg (28.0-32.0); Mean Corpuscular Hgb Conc. 33.4 g/dL (32.0-36.0); Mean Corpuscular Volume 84.9 fL (80.0-100.0); Monocytes # (auto) 0.5 uL; Monocytes % (auto) 6.1 % (0.0-12.0); Neutrophils # (auto) 4.8 uL; Neutrophils % (auto) 57.7 % (37.0-80.0); Nucleated Red Blood Cells % 0.1 %; Platelet Count (auto) 241 10^3/uL (140-450); Red Blood Cells 4.97 10^6/uL (4.0-5.20); Red Cell Distribution Width 15.5 % (11.8-14.3); White Blood Cell 8.3 10^3/uL (4.4-10.8)
[2018-02-16 17:40] LABS: Albumin 3.3 g/dL (3.4-5.0); BUN/Creatinine Ratio 17.4; Bilirubin, Total 0.2 mg/dL (0.2-1.0); Potassium 3.7 mmol/L (3.5-5.1); Total Protein 7.2 g/dL (6.4-8.2)
[2018-02-16] MEDS ORDERED: ALUM & MAG HYDROX-SIMETH LIQ(MAALOX) 30 ML PO ONE (20:00)
[2018-02-16] MEDS ORDERED: PANTOPRAZOLE 40 MG/10 ML VIAL IV ONE (20:00)
[2018-02-16] MEDS ORDERED: SODIUM CHLORIDE 0.9% 1,000 ML IV ONE ×2 (20:00→20:45)
[2018-02-16 22:47] VITALS: BP 122/74
== END 2018-02-16 23:30 | disposition left against medical advice (07) | DRG 251 ==
LOC: ER 16:21 → OVERFLOW 16:22 → ER 23:30
PROVIDERS: ADMIT Emergency Medicine; ATTEND Emergency Medicine
DX: R10.84 Generalized abdominal pain (principal); G35 Multiple sclerosis; J45.909 Unspecified asthma, uncomplicated; F12.90 Cannabis use, unspecified, uncomplicated; Z82.49 Family history of ischemic heart disease and other diseases of the circulatory system; Z83.3 Family history of diabetes mellitus; Z90.710 Acquired absence of both cervix and uterus; Z93.1 Gastrostomy status; Z88.0 Allergy status to penicillin; Z79.899 Other long term (current) drug therapy; Z76.5 Malingerer [conscious simulation]
CPT/HCPCS: 36415; 74176; 76705; 80053; 82150; 83690; 85025; 96361; 96374; 99285; C9113; G0378; J7030

== ENCOUNTER 2018-02-26 19:33 | Emergency (ER) | payer OTHER ==
[~2018-02-26] VITALS: Ht 165.1 cm; Wt 95.7 kg
[2018-02-26 20:23] LABS: Basophils # (auto) 0.1 uL; Basophils % (auto) 0.7 % (0.0-2.0); Eosinophils # (auto) 0.2 uL; Eosinophils % (auto) 2.2 % (0.0-7.0); Hematocrit 44.9 % (36.0-46.0); Hemoglobin 14.8 g/dL (12.2-16.2); Lymphocytes # (auto) 3.3 uL; Mean Corpuscular Hemoglobin 28.5 pg (28.0-32.0); Mean Corpuscular Hgb Conc. 32.9 g/dL (32.0-36.0); Mean Corpuscular Volume 86.6 fL (80.0-100.0); Monocytes # (auto) 0.6 uL; Monocytes % (auto) 6.1 % (0.0-12.0); Neutrophils # (auto) 5.9 uL; Platelet Count (auto) 276 10^3/uL (140-450); Red Blood Cells 5.18 10^6/uL (4.0-5.20); Red Cell Distribution Width 15.7 % (11.8-14.3); White Blood Cell 10.2 10^3/uL (4.4-10.8)
[2018-02-26 20:27] LABS: Albumin 3.2 g/dL (3.4-5.0); Calcium 8.7 mg/dL (8.5-10.1); Potassium 3.7 mmol/L (3.5-5.1)
[2018-02-26 20:29] LABS: BUN/Creatinine Ratio 18.5
[2018-02-26 20:31] LABS: Bilirubin, Total 0.3 mg/dL (0.2-1.0); Total Protein 7.4 g/dL (6.4-8.2)
[2018-02-26 21:17] LABS: Urine Bacteria NONE SEEN /hpf (None Seen); Urine Blood Negative /uL (Negative); Urine Mucus FEW (None Seen); Urine Specific Gravity 1.017 (1.001-1.035); Urine WBC <1 /hpf (0 - 5)
[2018-02-27 07:35] VITALS: BP 116/56
== END 2018-02-27 08:03 | disposition home or self-care (01) ==
LOC: ER 19:33
DX: G89.29 Other chronic pain (principal); J45.909 Unspecified asthma, uncomplicated; E78.5 Hyperlipidemia, unspecified; G35 Multiple sclerosis; F17.210 Nicotine dependence, cigarettes, uncomplicated; Z88.0 Allergy status to penicillin; Z88.8 Allergy status to other drugs, medicaments and biological substances; Z88.2 Allergy status to sulfonamides; Z79.899 Other long term (current) drug therapy; Z90.710 Acquired absence of both cervix and uterus
CPT/HCPCS: 36415; 71045; 80053; 81001; 83880; 85025

== ENCOUNTER 2018-03-17 09:20 | Emergency (ER) | payer MEDICAID, OTHER ==
[~2018-03-17] VITALS: Ht 165.1 cm; Wt 93.0 kg
[2018-03-17] MEDS ORDERED: SODIUM CHLORIDE 0.9% 1,000 ML IV ONE (11:16)
[2018-03-17] MEDS ORDERED: MORPHINE SULFATE 4 MG/ML SYR/VIAL IV ONE (11:30)
[2018-03-17] MEDS ORDERED: LIDOCAINE 2% (LOCAL ANESTH.) PF 5ml SDV ID ONE (11:30)
[2018-03-17] MEDS ORDERED: cefTRIAXone 1GM/10ml IVPUSH 10 ML IV ONE (11:30)
[2018-03-17] MEDS ORDERED: PROMETHAZINE HCL 25 MG/ML 1ML IV PRN (11:30)
[2018-03-17] MEDS ORDERED: ONDANSETRON HCL 4 MG/2 ML VIAL IV ONE (11:45)
[2018-03-17 12:15] LABS: Basophils # (auto) 0 uL; Basophils % (auto) 0.3 % (0.0-2.0); Eosinophils # (auto) 0.3 uL; Eosinophils % (auto) 2.1 % (0.0-7.0); Hematocrit 40.5 % (36.0-46.0); Hemoglobin 12.9 g/dL (12.2-16.2); Lymphocytes # (auto) 3.1 uL; Lymphocytes % (auto) 25.5 % (10.0-50.0); Mean Corpuscular Hemoglobin 27.3 pg (28.0-32.0); Mean Corpuscular Volume 85.5 fL (80.0-100.0); Monocytes # (auto) 0.8 uL; Monocytes % (auto) 6.8 % (0.0-12.0); Neutrophils % (auto) 65.3 % (37.0-80.0); Platelet Count (auto) 265 10^3/uL (140-450); Red Blood Cells 4.73 10^6/uL (4.0-5.20); Red Cell Distribution Width 14.7 % (11.8-14.3); White Blood Cell 12.3 10^3/uL (4.4-10.8)
[2018-03-17] MEDS ORDERED: LIDOCAINE 2% (LOCAL ANESTH.) PF 5ml SDV ONE (12:21)
[2018-03-17] MEDS ORDERED: NEOMYCIN-BACITRACIN-POLYM UNITDOSE PKG TOP OINT TOP ONE ×2 (12:32→12:45)
[2018-03-17 12:44] LABS: BUN/Creatinine Ratio 17.6; Calcium 8.4 mg/dL (8.5-10.1); Magnesium 2.7 mg/dL (1.6-2.6); Potassium 3.5 mmol/L (3.5-5.1)
[2018-03-17] MEDS ORDERED: LIDOCAINE 2% (LOCAL ANESTH.) PF 5ml SDV IJ ONE (12:45)
[2018-03-17 13:12] VITALS: BP 102/60
[2018-03-17 14:18] LABS: Urine Bacteria FEW /hpf (None Seen); Urine Blood Negative /uL (Negative); Urine Specific Gravity 1.008 (1.001-1.035); Urine WBC 13 /hpf (0 - 5)
== END 2018-03-17 14:55 | disposition home or self-care (01) ==
LOC: ER 09:20
DX: L02.211 Cutaneous abscess of abdominal wall (principal); N39.0 Urinary tract infection, site not specified; G40.909 Epilepsy, unspecified, not intractable, without status epilepticus; G35 Multiple sclerosis; J45.909 Unspecified asthma, uncomplicated; E78.5 Hyperlipidemia, unspecified; Z90.49 Acquired absence of other specified parts of digestive tract; Z90.710 Acquired absence of both cervix and uterus; F17.210 Nicotine dependence, cigarettes, uncomplicated; Z88.8 Allergy status to other drugs, medicaments and biological substances; Z88.0 Allergy status to penicillin; Z88.2 Allergy status to sulfonamides; Z79.899 Other long term (current) drug therapy
CPT/HCPCS: 10060; 36415; 80048; 81001; 83690; 83735; 85025; 94761; 96374; 96375; 99284; J0696; J2001; J2270; J2405; J7030; 10061

== ENCOUNTER 2018-03-19 14:56 | Emergency (ER) | payer MEDICAID ==
[~2018-03-19] VITALS: Ht 165.1 cm; Wt 93.0 kg
[2018-03-19 15:06] VITALS: BP 98/60
[2018-03-19] MEDS ORDERED: cefTRIAXone SOD 1,000 MG VL IM ONE (16:45)
== END 2018-03-19 16:47 | disposition home or self-care (01) ==
LOC: ER 14:58
DX: N39.0 Urinary tract infection, site not specified (principal); L02.211 Cutaneous abscess of abdominal wall; J45.909 Unspecified asthma, uncomplicated; E78.5 Hyperlipidemia, unspecified; F20.9 Schizophrenia, unspecified; Z88.0 Allergy status to penicillin; Z88.1 Allergy status to other antibiotic agents; Z88.2 Allergy status to sulfonamides; Z90.710 Acquired absence of both cervix and uterus
CPT/HCPCS: 96372; 99283; J0696

== ENCOUNTER 2018-03-26 14:30 | Emergency (ER) | payer MEDICAID ==
[~2018-03-26] VITALS: Ht 165.1 cm; Wt 93.0 kg
[2018-03-26 14:41] VITALS: BP 104/46
[2018-03-26 16:18] LABS: Urine Bacteria NONE SEEN /hpf (None Seen); Urine Blood Negative /uL (Negative); Urine Specific Gravity 1.007 (1.001-1.035); Urine WBC <1 /hpf (0 - 5)
[2018-03-26 16:35] LABS: Basophils # (auto) 0.1 uL; Basophils % (auto) 0.9 % (0.0-2.0); Eosinophils # (auto) 0.2 uL; Eosinophils % (auto) 3.4 % (0.0-7.0); Hematocrit 39.7 % (36.0-46.0); Hemoglobin 13.2 g/dL (12.2-16.2); Lymphocytes # (auto) 2.7 uL; Lymphocytes % (auto) 38.6 % (10.0-50.0); Mean Corpuscular Hemoglobin 28.1 pg (28.0-32.0); Mean Corpuscular Hgb Conc. 33.2 g/dL (32.0-36.0); Mean Corpuscular Volume 84.5 fL (80.0-100.0); Monocytes # (auto) 0.4 uL; Monocytes % (auto) 6.1 % (0.0-12.0); Neutrophils # (auto) 3.5 uL; Nucleated Red Blood Cells % 0.1 %; Platelet Count (auto) 248 10^3/uL (140-450); Red Cell Distribution Width 14.3 % (11.8-14.3); White Blood Cell 6.9 10^3/uL (4.4-10.8)
[2018-03-26 16:59] LABS: Albumin 3.1 g/dL (3.4-5.0); BUN/Creatinine Ratio 20.5; Calcium 8.5 mg/dL (8.5-10.1); Potassium 4.2 mmol/L (3.5-5.1)
[2018-03-26 17:02] LABS: Bilirubin, Total 0.2 mg/dL (0.2-1.0); Total Protein 6.8 g/dL (6.4-8.2)
== END 2018-03-26 17:43 | disposition home or self-care (01) ==
LOC: ER 14:35
DX: S30.92XD Unspecified superficial injury of abdominal wall, subsequent encounter (principal); J45.909 Unspecified asthma, uncomplicated; E78.5 Hyperlipidemia, unspecified; F17.210 Nicotine dependence, cigarettes, uncomplicated; Z90.710 Acquired absence of both cervix and uterus; Z48.01 Encounter for change or removal of surgical wound dressing
CPT/HCPCS: 36415; 80053; 81001; 85025

== ENCOUNTER 2018-04-02 14:35 | Emergency (ER) | payer MEDICAID ==
[~2018-04-02] VITALS: Ht 165.1 cm; Wt 93.0 kg
[2018-04-02 16:41] LABS: Basophils # (auto) 0 uL; Basophils % (auto) 0.4 % (0.0-2.0); Eosinophils # (auto) 0.3 uL; Eosinophils % (auto) 2.6 % (0.0-7.0); Hematocrit 43.2 % (36.0-46.0); Hemoglobin 14.2 g/dL (12.2-16.2); Lymphocytes # (auto) 3.4 uL; Lymphocytes % (auto) 35.7 % (10.0-50.0); Mean Corpuscular Hgb Conc. 32.9 g/dL (32.0-36.0); Mean Corpuscular Volume 85.3 fL (80.0-100.0); Monocytes # (auto) 0.6 uL; Monocytes % (auto) 5.8 % (0.0-12.0); Neutrophils # (auto) 5.3 uL; Neutrophils % (auto) 55.5 % (37.0-80.0); Nucleated Red Blood Cells % 0.1 %; Platelet Count (auto) 244 10^3/uL (140-450); Red Blood Cells 5.06 10^6/uL (4.0-5.20); Red Cell Distribution Width 14.8 % (11.8-14.3); White Blood Cell 9.6 10^3/uL (4.4-10.8)
[2018-04-02 16:46] LABS: Albumin 3.2 g/dL (3.4-5.0); BUN/Creatinine Ratio 15.7; Bilirubin, Total 0.3 mg/dL (0.2-1.0); Calcium 8.7 mg/dL (8.5-10.1); Potassium 3.5 mmol/L (3.5-5.1); Total Protein 7.5 g/dL (6.4-8.2)
[2018-04-02 20:34] VITALS: BP 109/59
== END 2018-04-02 21:08 | disposition home or self-care (01) ==
LOC: ER 14:35
DX: R10.9 Unspecified abdominal pain (principal); Z48.01 Encounter for change or removal of surgical wound dressing; J45.909 Unspecified asthma, uncomplicated; E78.5 Hyperlipidemia, unspecified; F17.210 Nicotine dependence, cigarettes, uncomplicated; Z88.0 Allergy status to penicillin; Z88.8 Allergy status to other drugs, medicaments and biological substances; Z79.899 Other long term (current) drug therapy; Z90.49 Acquired absence of other specified parts of digestive tract; Z90.710 Acquired absence of both cervix and uterus
CPT/HCPCS: 36415; 80053; 85025

== ENCOUNTER 2018-04-10 14:25 | Emergency (ER) | payer MEDICAID ==
[~2018-04-10] VITALS: Ht 165.1 cm; Wt 93.0 kg
[2018-04-10 16:40] VITALS: BP 110/58
== END 2018-04-10 16:35 | disposition home or self-care (01) ==
LOC: ER 14:25
DX: R10.13 Epigastric pain (principal); F17.210 Nicotine dependence, cigarettes, uncomplicated; J45.909 Unspecified asthma, uncomplicated; E78.5 Hyperlipidemia, unspecified; F41.9 Anxiety disorder, unspecified; F12.10 Cannabis abuse, uncomplicated; F20.9 Schizophrenia, unspecified; Z90.710 Acquired absence of both cervix and uterus; Z88.0 Allergy status to penicillin; Z88.1 Allergy status to other antibiotic agents; Z88.2 Allergy status to sulfonamides; Z93.1 Gastrostomy status
CPT/HCPCS: 43760; 74176

== ENCOUNTER 2018-04-16 17:16 | Emergency (ER) | payer MEDICAID ==
[~2018-04-16] VITALS: Ht 165.1 cm; Wt 93.0 kg
[2018-04-16] MEDS ORDERED: ONDANSETRON ODT 4 MG TAB PO ONE (20:00)
[2018-04-16] MEDS ORDERED: HYDROmorphone HCL 2 MG/ML VL IM ONE (20:15)
[2018-04-16 20:33] LABS: Basophils # (auto) 0 uL; Basophils % (auto) 0.6 % (0.0-2.0); Eosinophils # (auto) 0.3 uL; Eosinophils % (auto) 3.1 % (0.0-7.0); Hematocrit 44.6 % (36.0-46.0); Hemoglobin 14.4 g/dL (12.2-16.2); Lymphocytes # (auto) 3.3 uL; Lymphocytes % (auto) 38.5 % (10.0-50.0); Mean Corpuscular Hemoglobin 27.7 pg (28.0-32.0); Mean Corpuscular Hgb Conc. 32.3 g/dL (32.0-36.0); Mean Corpuscular Volume 85.7 fL (80.0-100.0); Monocytes # (auto) 0.6 uL; Neutrophils # (auto) 4.4 uL; Neutrophils % (auto) 50.8 % (37.0-80.0); Nucleated Red Blood Cells % 0.2 %; Platelet Count (auto) 236 10^3/uL (140-450); Red Cell Distribution Width 14.9 % (11.8-14.3); White Blood Cell 8.6 10^3/uL (4.4-10.8)
[2018-04-16 20:48] LABS: Calcium 8.3 mg/dL (8.5-10.1); Potassium 3.9 mmol/L (3.5-5.1)
[2018-04-16 20:52] LABS: Albumin 3.2 g/dL (3.4-5.0); BUN/Creatinine Ratio 15.2
[2018-04-16 20:54] LABS: Bilirubin, Total 0.2 mg/dL (0.2-1.0); Total Protein 7.2 g/dL (6.4-8.2)
[2018-04-16 22:00] VITALS: BP 136/92
== END 2018-04-16 22:49 | disposition home or self-care (01) ==
LOC: ER 17:16
DX: F12.188 Cannabis abuse with other cannabis-induced disorder (principal); R11.10 Vomiting, unspecified; J45.909 Unspecified asthma, uncomplicated; E78.5 Hyperlipidemia, unspecified; G35 Multiple sclerosis; Z90.49 Acquired absence of other specified parts of digestive tract; Z88.8 Allergy status to other drugs, medicaments and biological substances; Z88.0 Allergy status to penicillin; Z79.899 Other long term (current) drug therapy; Z90.710 Acquired absence of both cervix and uterus
CPT/HCPCS: 36415; 80053; 85025; 96372; 99284; J1170; Q0162

== ENCOUNTER 2018-05-23 15:52 | Emergency (ER) | payer MEDICAID ==
[~2018-05-23] VITALS: Ht 165.1 cm; Wt 95.3 kg
[2018-05-23] MEDS ORDERED: SODIUM CHLORIDE 0.9% 1,000 ML IV ONE (19:30)
[2018-05-23] MEDS ORDERED: MORPHINE SULFATE 4 MG/ML SYR/VIAL IV ONE (20:30)
[2018-05-23] MEDS ORDERED: ONDANSETRON HCL 4 MG/2 ML VIAL IV ONE (20:30)
[2018-05-23 21:07] LABS: Basophils # (auto) 0 uL; Basophils % (auto) 0.3 % (0.0-2.0); Eosinophils # (auto) 0.3 uL; Eosinophils % (auto) 2.8 % (0.0-7.0); Hematocrit 42.6 % (36.0-46.0); Hemoglobin 14.2 g/dL (12.2-16.2); Lymphocytes # (auto) 3.7 uL; Lymphocytes % (auto) 35.7 % (10.0-50.0); Mean Corpuscular Hemoglobin 28.6 pg (28.0-32.0); Mean Corpuscular Hgb Conc. 33.3 g/dL (32.0-36.0); Mean Corpuscular Volume 85.9 fL (80.0-100.0); Monocytes # (auto) 0.6 uL; Monocytes % (auto) 6.1 % (0.0-12.0); Neutrophils # (auto) 5.6 uL; Neutrophils % (auto) 55.1 % (37.0-80.0); Nucleated Red Blood Cells % 0.2 %; Platelet Count (auto) 231 10^3/uL (140-450); Red Blood Cells 4.95 10^6/uL (4.0-5.20); Red Cell Distribution Width 15.2 % (11.8-14.3); White Blood Cell 10.2 10^3/uL (4.4-10.8)
[2018-05-23 21:23] LABS: Albumin 3.4 g/dL (3.4-5.0); Calcium 9.2 mg/dL (8.5-10.1); Potassium 3.9 mmol/L (3.5-5.1)
[2018-05-23 21:27] LABS: BUN/Creatinine Ratio 17.2; Bilirubin, Total 0.2 mg/dL (0.2-1.0); Total Protein 7.2 g/dL (6.4-8.2)
[2018-05-23 21:51] VITALS: BP 94/49
== END 2018-05-23 22:46 | disposition home or self-care (01) ==
LOC: ER 16:01
DX: J02.9 Acute pharyngitis, unspecified (principal); R52 Pain, unspecified; H92.09 Otalgia, unspecified ear; J45.909 Unspecified asthma, uncomplicated; E78.5 Hyperlipidemia, unspecified; Z90.49 Acquired absence of other specified parts of digestive tract; Z90.710 Acquired absence of both cervix and uterus; F17.210 Nicotine dependence, cigarettes, uncomplicated; F12.90 Cannabis use, unspecified, uncomplicated; Z88.0 Allergy status to penicillin; Z88.2 Allergy status to sulfonamides; Z88.8 Allergy status to other drugs, medicaments and biological substances; Z79.899 Other long term (current) drug therapy
CPT/HCPCS: 36415; 80053; 85025; 94761; 96374; 96375; 99285; J2270; J2405; J7030

== ENCOUNTER 2018-05-27 11:09 | Emergency (ER) | payer MEDICAID ==
[~2018-05-27] VITALS: Ht 165.1 cm; Wt 96.2 kg
[2018-05-27 11:16] VITALS: BP 124/70
== END 2018-05-27 15:33 | disposition home or self-care (01) ==
LOC: ER 11:11
DX: L03.311 Cellulitis of abdominal wall (principal); H60.91 Unspecified otitis externa, right ear; J45.909 Unspecified asthma, uncomplicated; E78.5 Hyperlipidemia, unspecified; F17.210 Nicotine dependence, cigarettes, uncomplicated; F12.90 Cannabis use, unspecified, uncomplicated; Z88.0 Allergy status to penicillin; Z88.2 Allergy status to sulfonamides; Z88.8 Allergy status to other drugs, medicaments and biological substances; Z79.899 Other long term (current) drug therapy; Z90.49 Acquired absence of other specified parts of digestive tract; Z90.710 Acquired absence of both cervix and uterus

== ENCOUNTER 2018-09-14 16:31 | Inpatient (IN) | payer MEDICAID ==
[~2018-09-14] VITALS: Ht 165.1 cm; Wt 100.0 kg
[2018-09-15] MEDS ORDERED: ONDANSETRON HCL 4 MG/2 ML VIAL IV ONE (04:00)
[2018-09-15] MEDS ORDERED: MORPHINE SULFATE 4 MG/ML SYR/VIAL IV ONE (04:00)
[2018-09-15] MEDS ORDERED: SODIUM CHLORIDE 0.9% 1,000 ML IV ONE (04:00)
[2018-09-15 04:27] LABS: Basophils # (auto) 0.1 uL; Basophils % (auto) 0.6 % (0.0-2.0); Eosinophils # (auto) 0.1 uL; Hematocrit 40.7 % (36.0-46.0); Hemoglobin 13.5 g/dL (12.2-16.2); Lymphocytes # (auto) 3.3 uL; Lymphocytes % (auto) 31.9 % (10.0-50.0); Mean Corpuscular Hemoglobin 28.3 pg (28.0-32.0); Mean Corpuscular Hgb Conc. 33.2 g/dL (32.0-36.0); Mean Corpuscular Volume 85.3 fL (80.0-100.0); Monocytes # (auto) 1.1 uL; Monocytes % (auto) 10.7 % (0.0-12.0); Neutrophils # (auto) 5.8 uL; Neutrophils % (auto) 55.8 % (37.0-80.0); Nucleated Red Blood Cells % 0.1 %; Platelet Count (auto) 215 10^3/uL (140-450); Red Blood Cells 4.77 10^6/uL (4.0-5.20); Red Cell Distribution Width 14.5 % (11.8-14.3); White Blood Cell 10.4 10^3/uL (4.4-10.8)
[2018-09-15 04:39] LABS: Albumin 3.2 g/dL (3.4-5.0); Calcium 8.7 mg/dL (8.5-10.1)
[2018-09-15 04:41] LABS: BUN/Creatinine Ratio 18.2
[2018-09-15 04:53] LABS: Bilirubin, Total 0.2 mg/dL (0.2-1.0); Total Protein 6.8 g/dL (6.4-8.2)
[2018-09-15 05:31] LABS: Urine Bacteria FEW /hpf (None Seen); Urine Blood Negative /uL (Negative); Urine Mucus FEW (None Seen); Urine Specific Gravity 1.004 (1.001-1.035); Urine WBC 1 /hpf (0 - 5)
[2018-09-15] MEDS ORDERED: ACETAMINOPHEN 325 MG TAB PO PRN (06:30)
[2018-09-15] MEDS: ONDANSETRON HCL 4 MG/2 ML VIAL IV PRN ×3 (08:10→16:03)
[2018-09-15] MEDS: CLINDAMYCIN 600MG IV 50 ML IV SCH ×3 (08:10→20:47)
[2018-09-15] MEDS: HYDROcodone-ACET 5/325MG TAB PO PRN ×2 (08:11→16:22)
--- NOTE | 2018-09-15 10:00 | NUR ---
ASSUMED CARE OF PATIENT PATIENT IS AWAKE, ALERT, AND ORIENTED X4. RESPIRATIONS EVEN AND UNLABORED. NO S/S OF DISTRESS, SOB, OR PAIN. DISCUSSED POC WITH PATIENT. ORIENTED PATIENT TO ROOM, UNIT, POLICIES, AND PROCEDURES. PATIENT VERBALIZED UNDERSTANDING. WILL CONTINUE TO MONITOR Q1 HOUR AND PRN.
--- NOTE | 2018-09-15 10:05 | NUR ---
PHOTOS TAKEN IN E.R. PATIENT STATES PHOTOS OF HER WOUND WERE TAKEN EARLY THIS MORNING AROUND 3 A.M. IN THE EMERGENCY ROOM OF HER ABDOMINAL WOUND. NO FURTHER PICTURES HAVE BEEN TAKEN ON THE [facility] FLOOR AFTER ASSUMING CARE OF PATIENT
--- NOTE | 2018-09-15 10:15 | NUR ---
AMA TO SMOKE PATIENT REQUESTS AN AMA FORM TO ALLOW HER TO GO DOWN STAIRS AND SMOKE. PATIENT UTILIZES WHEELCHAIR FOR TRANSPORTATION. EDUCATION OF RISKS PROVIDED TO PATIENT. PATIENT VERBALIZED UNDERSTANDING. PATIENT SIGNED FORM AND FORM WAS PLACED IN HARD CHART
[2018-09-15] MEDS: clonazePAM 0.5 MG TAB PO SCH ×2 (10:21→20:49)
[2018-09-15] MEDS: CITALOPRAM HYDROBR 20 MG TAB PO SCH (10:21)
[2018-09-15] MEDS: FAMOTIDINE 20 MG TAB PO SCH ×2 (10:21→20:49)
--- NOTE | 2018-09-15 10:30 | NUR ---
WOUND CARE PATIENT HAS A WOUND TO UPPER, MEDIAL ABDOMEN. WOUND IS CIRCULAR, CLEAN, DRY, AND INTACT. PATIENT STATES, "THE WOUND IS FROM A FEEDING TUBE TWO YEARS AGO THAT NEVER HEALED. IT DRAINS A LOT, IT IS JUST NOT DRAINING NOW." THE WOUND IS LOCATED OVER AN OLD SCAR OF APPENDECTOMY AND EXPLORATORY LAP. TO THE RIGHT OF THE WOUND IS A PEG TUB. AREA AROUND PEG TUBE INCISION IS CLEAN AND DRY. DRESSING COVERING AREA IS CLEAN, DRY, AND INTACT. WOUND CLEANSED WITH NORMAL SALINE AND PATTED DRY WITH STERILE GAUZE. NO DRAINAGE OBSERVED. ABDOMINAL PAD PLACED OVER AREA AND LARGE TEGADERM DRESSING PLACED OVER ABSORBANT PAD. PATIENT TOLERATED PROCEDURE WITHOUT S/S OF DISTRESS, SOB, OR PAIN. Addendum: 09/15/18 at 1117 by Melly Palma RN THE CURRENT PEG TUBE IS TO THE LEFT OF THE WOUND
--- NOTE | 2018-09-15 10:47 | NUR ---
PATIENT REQUESTS MORPHINE PATIENT STATES, "NORCO IS NOT ENOUGH FOR ME. CAN YOU ASK THE DOCTOR TO GIVE ME AN ORDER FOR MORPHINE?" DR. Mima RIDER LISTED M.D. COVERING PATIENT, M.D.WAS CALLED AND A MESSAGE WAS LEFT UPDATING M.D. OF PATIENT'S REQUEST
--- NOTE | 2018-09-15 10:55 | NUR ---
NON WORKING PORT A CATH PATIENT HAS A PORT A CATH LOCATED ON UPPER RIGHT CHEST. PATIENT STATES, "IT HAS NOT WORKED IN YEARS." ATTEMPT TO ACCESS CATH WAS NOT DONE. NO ORDER TO ACCESS CATH PLACED. Addendum: 09/15/18 at 1118 by Melly Palma RN PORT A CATH LOCATED IN UPPER LEFT CHEST
--- NOTE | 2018-09-15 10:59 | NUR ---
CONCERN OVER CURRENT PEG TUBE PATIENT HAS A PEG TUBE TO RIGHT UPPER ABDOMEN. PATIENT STATES, " IT IS A BACK UP FOR WHEN MY M.S HAS A FLARE UP AND I AM UNABLE TO SWALLOW. I USED IT A FEW WEEKS AGO. BUT ITS NOT WORKING WELL ANYMORE. IT LEAKS EVERYWHERE, I THINK IT NEEDS TO BE REPLACED." Addendum: 09/15/18 at 1118 by Melly Palma RN PEG TUBE IS LEFT UPPER ABDOMEN
--- NOTE | 2018-09-15 11:02 | NUR ---
DR. Mima RIDER M.D. PUT IN ORDER FOR MORPHINE PER PATIENT REQUEST J Luis ALSO PUT IN A SURGICAL CONSULT WITH DR. BARNETT
--- NOTE | 2018-09-15 11:07 | NUR ---
DR. JENNIFER Dietz CALLED AND WAS UPDATED ON PATIENTS CONDITION MDon STATES HE WILL SEE THE PATIENT ON MONDAY
[2018-09-15] MEDS: MORPHINE SULFATE 4 MG/ML SYR/VIAL IV PRN ×2 (12:01→20:48)
[2018-09-15 12:45] VITALS: BP 120/77
[2018-09-15 13:16] LABS: INR 0.92 (0.9-1.15); Prothrombin Time 9.9 sec (9.27-12.13)
--- NOTE | 2018-09-15 13:30 | NUR ---
G.I CONSULT DR. OSMAN Martinez EVALUATED PATIENT AT BEDSIDE. AFTER DISCUSSING DIFFERENT OPTIONS WITH PATIENT, PATIENT HAD DECIDED SHE WANTS A PEG TUBE REMOVAL. J Luis SAID HE WILL PERFORM AN E.G.D. AND PEG TUBE REMOVAL MONDAY A.M. PATIENT VERBALIZED UNDERSTANDING
[2018-09-15] MEDS: METOCLOPRAMIDE HCL 10 MG TAB PO SCH ×2 (13:52→20:49)
[2018-09-15] MEDS: GABAPENTIN 400 MG CAP PO SCH ×2 (13:52→20:48)
--- NOTE | 2018-09-15 16:05 | NUR ---
C/O OF NAUSEA AND MIGRAINE ADMINISTERED ZOFRAN PER EMAR/M.D. ORDERS. PATIENT STATES, " IT BARELY WORKS. I ALSO HAVE A MIGRAINE. I TAKE FIORICET AT HOME FOR MIGRAINES. CAN YOU ASK THE DOCTOR FOR SOME OF THAT TOO." CALLED AND LEFT A MESSAGE FOR DR. Mima RIDER. INFORMED M.D. OF PATIENTS STATUS AND QUESTIONS. WILL AWAIT M.D. CALL BACK
--- NOTE | 2018-09-15 16:10 | NUR ---
NEW ORDERS DR. Mima RIDER CALLED AND PLACED NEW ORDERS. ONE TIME DOSE OF FIORICET (2 TABS). PATIENT IS TO BE TAKING NORCO AND MORPHINE TO CONTROL PAIN, NOT PURELY MORPHINE, PER M.D. 12.5. MG I.V. PROMETHAZINE Q6 HOUR PRN MAY BE ADDED WITH ZOFRAN REGIMEN TO CONTROL NAUSEA. ORDERS READ BACK AND VERIFIED
--- NOTE | 2018-09-15 16:24 | NUR ---
PHARMACY DOES NOT CARRY FIORICET DISCUSSED THIS WITH PATIENT. PATIENT SAYS THERE IS NOBODY HOME THAT CAN BRING HOME MEDICATIONS TO HER. PATIENT REQUESTED A NORCO INSTEAD. MEDICATION ADMINISTERED PER EMAR/ M.D. ORDERS. REPOSITIONED PATIENT FOR COMFORT.
[2018-09-15 16:39] VITALS: BP 122/73
--- NOTE | 2018-09-15 18:51 | NUR ---
END OF SHIFT PATIENT RESTING IN BED. NO S/S OF DISTRESS, SOB. RESPIRATIONS EVEN AND UNLABORED. BED IS IN LOWEST POSITION, SIDE RAILS UP X2, AND CALL LIGHT WITHIN REACH. FALL PRECAUTIONS IN PLACE. WILL ENDORSE CARE TO PERSONAL FINANCE INSTRUCTOR R.N.
[2018-09-15] MEDS: PROMETHAZINE HCL 25 MG/ML 1ML IV PRN (20:47)
[2018-09-15] MEDS: ATORVASTATIN 20 MG TAB PO SCH (20:48)
[2018-09-15 22:00] VITALS: BP_SYST 121; BP_SYST 126; BP_DIAS 73
[2018-09-16 05:00] VITALS: BP 116/71
[2018-09-16] MEDS: CLINDAMYCIN 600MG IV 50 ML IV SCH ×3 (06:01→22:23)
[2018-09-16] MEDS: GABAPENTIN 400 MG CAP PO SCH ×3 (06:01→22:22)
[2018-09-16] MEDS: PROMETHAZINE HCL 25 MG/ML 1ML IV PRN ×3 (06:02→18:21)
[2018-09-16] MEDS: METOCLOPRAMIDE HCL 10 MG TAB PO SCH ×3 (06:02→22:24)
[2018-09-16] MEDS: MORPHINE SULFATE 4 MG/ML SYR/VIAL IV PRN ×3 (06:03→18:22)
--- NOTE | 2018-09-16 07:30 | NUR ---
Opening Shift Note Received report and assumed care of patient,patient checked not in room at present time,received from report has AMA to go out/smoke.
[2018-09-16 07:32] LABS: Basophils # (auto) 0 uL; Basophils % (auto) 0.2 % (0.0-2.0); Eosinophils # (auto) 0.1 uL; Eosinophils % (auto) 0.9 % (0.0-7.0); Hematocrit 40.1 % (36.0-46.0); Hemoglobin 13.4 g/dL (12.2-16.2); Lymphocytes # (auto) 1.6 uL; Lymphocytes % (auto) 22.3 % (10.0-50.0); Mean Corpuscular Hemoglobin 28.3 pg (28.0-32.0); Mean Corpuscular Hgb Conc. 33.5 g/dL (32.0-36.0); Mean Corpuscular Volume 84.4 fL (80.0-100.0); Monocytes # (auto) 0.7 uL; Monocytes % (auto) 10.4 % (0.0-12.0); Neutrophils # (auto) 4.7 uL; Neutrophils % (auto) 66.2 % (37.0-80.0); Platelet Count (auto) 219 10^3/uL (140-450); Red Blood Cells 4.75 10^6/uL (4.0-5.20); Red Cell Distribution Width 14.2 % (11.8-14.3); White Blood Cell 7.1 10^3/uL (4.4-10.8)
[2018-09-16 07:45] LABS: INR 0.94 (0.9-1.15); Partial Thromboplastin Time 29.2 sec (23.78-33.04); Prothrombin Time 10.1 sec (9.27-12.13)
[2018-09-16 07:48] LABS: BUN/Creatinine Ratio 23.7; Calcium 8.5 mg/dL (8.5-10.1); Magnesium 2.5 mg/dL (1.6-2.6); Potassium 3.7 mmol/L (3.5-5.1)
[2018-09-16 08:34] VITALS: BP 107/74
[2018-09-16] MEDS: clonazePAM 0.5 MG TAB PO SCH ×2 (11:08→22:23)
[2018-09-16] MEDS: ASCORBIC ACID 500 MG TAB PO SCH (11:09)
[2018-09-16] MEDS: FAMOTIDINE 20 MG TAB PO SCH ×2 (11:09→22:22)
[2018-09-16] MEDS: CITALOPRAM HYDROBR 20 MG TAB PO SCH (11:09)
--- NOTE | 2018-09-16 12:00 | NUR ---
WOUND CARE NOTE: PATIENT NOTED WHILE IN THE ER TO HAVE WOUND TO ABD. WOUND PHOTORGRAPHED AT THAT TIME BY BEDSIDE NURSE. PATIENT ADMITTED TO [facility] WITH DIAGNOSIS OF ABDOMINAL WALL CELLULITIS. PATIENT HAS INTACT G TUBE PLACED IN ABDOMEN. SHE HAS AN OLD CHRONIC, DRAINING WOUND TO ABDOMEN, WHERE FROM AN OLD DRAIN SITE. WOUND IS CHRONIC, WITH PATIENT HAVING WOUND FOR MANY YEARS. NO S/S OF INFECTION NOTED. PATIENT HAS CURRENT BART SCORE OF 15. SHE IS AMBULATORY. SKIN/WOUND CARE PLAN IMPLEMENTED. RECOMMEND: DAILY DRESSING CHANGE WITH OPTIFOAM AND THERAHONEY. NO FURTHER WOUND CARE MONITORING IS NEEDED AT THIS TIME. Addendum: 09/16/18 at 1603 by Lynda Luz RN Amended: Links added.
[2018-09-16 12:09] VITALS: BP 109/59
--- NOTE | 2018-09-16 12:10 | NUR ---
PATIENT LEAVING THE UNIT AND GOES OUT THE BUILDING IN HER WHEELCHAIR WITH FAMILY (HASA INFORMED CONSENT FOR SMOKING)
[2018-09-16 16:03] VITALS: BP 114/66
--- NOTE | 2018-09-16 19:13 | NUR ---
Closing Note Report given to NOC shift RN. No signs or symptoms of distress noted at this time. Sitter at bedside for safety.
--- NOTE | 2018-09-16 19:20 | NUR ---
Opening Note Received change of shift report from day shift RN. Patient is awake, alert and oriented x4. No signs or symptoms of distress noted a this time. Patient is asking when her next dose of pain and nausea medications are due. Medication not due yet, will medicate per orders. Reviewed plan of care with patient, patient verbalized understanding. Friend at bedside. Bed in lowest and locked position, call light within reach. Will continue to monitor Q1 hour and PRN.
[2018-09-16 22:00] VITALS: BP 133/70
[2018-09-16] MEDS: ATORVASTATIN 20 MG TAB PO SCH (22:23)
--- NOTE | 2018-09-16 22:25 | NUR ---
Consents signed for procedure tomorrow
--- NOTE | 2018-09-16 22:30 | NUR ---
Wound Care Abdominal dressing removed. Area cleaned with wound cleanser, patted dry with sterile gauze. Thera honey applied to area, covered with abdominal pad and tegaderm. Patient tolerated well. Will continue to monitor Q1 hour and PRN.
[2018-09-17] MEDS: PROMETHAZINE HCL 25 MG/ML 1ML IV PRN ×3 (02:07→15:36)
[2018-09-17] MEDS: MORPHINE SULFATE 4 MG/ML SYR/VIAL IV PRN ×3 (02:07→18:47)
[2018-09-17 05:03] VITALS: BP 99/53
[2018-09-17] MEDS: GABAPENTIN 400 MG CAP PO SCH ×3 (05:29→22:21)
[2018-09-17] MEDS: CLINDAMYCIN 600MG IV 50 ML IV SCH ×3 (05:29→22:21)
[2018-09-17] MEDS: METOCLOPRAMIDE HCL 10 MG TAB PO SCH ×3 (05:29→22:21)
[2018-09-17] MEDS: ONDANSETRON HCL 4 MG/2 ML VIAL IV PRN ×2 (05:48→18:48)
--- NOTE | 2018-09-17 05:58 | NUR ---
Patient complains of nausea requesting Phenergan. Made patient aware Phenergan is not currently due, patient asking for Zofran instead. Will medicate per orders. Patient states she needs to go outside to feel better. Will continue to monitor Q1 hour and PRN.
--- NOTE | 2018-09-17 06:01 | NUR ---
Patient of unit, went downstairs in her wheelchair.
--- NOTE | 2018-09-17 06:15 | NUR ---
Patient back in bed. No signs or symptoms of distress noted at this time. Will continue to monitor Q1 hour and PRN.
[2018-09-17 06:46] LABS: Basophils # (auto) 0.1 uL; Basophils % (auto) 0.7 % (0.0-2.0); Eosinophils # (auto) 0.1 uL; Eosinophils % (auto) 1.5 % (0.0-7.0); Hematocrit 42.1 % (36.0-46.0); Hemoglobin 14.2 g/dL (12.2-16.2); Lymphocytes # (auto) 2.6 uL; Lymphocytes % (auto) 34.5 % (10.0-50.0); Mean Corpuscular Hemoglobin 28.6 pg (28.0-32.0); Mean Corpuscular Hgb Conc. 33.8 g/dL (32.0-36.0); Mean Corpuscular Volume 84.5 fL (80.0-100.0); Monocytes # (auto) 0.8 uL; Monocytes % (auto) 11.2 % (0.0-12.0); Neutrophils # (auto) 3.9 uL; Neutrophils % (auto) 52.1 % (37.0-80.0); Platelet Count (auto) 229 10^3/uL (140-450); Red Blood Cells 4.98 10^6/uL (4.0-5.20); Red Cell Distribution Width 14.2 % (11.8-14.3); White Blood Cell 7.5 10^3/uL (4.4-10.8)
--- NOTE | 2018-09-17 07:15 | NUR ---
OPENING SHIFT RECEIVED AWAKE, ALERT, ORIENTED, NO DISTRESS ,NO DISCOMFORT PATIENT REMINDED INSTRUCTED TO KEEP NPO FOR EXPECTED PROCEDURE.PATIENT VERBALIZED UNDERSTANDING.
--- NOTE | 2018-09-17 07:30 | NUR ---
REQUESTED MEDICAL RECORDS RECEIVED FROM [facility],COPIES IN CHART
[2018-09-17 07:35] LABS: BUN/Creatinine Ratio 20.9; Calcium 8.8 mg/dL (8.5-10.1); Magnesium 2.4 mg/dL (1.6-2.6); Potassium 3.6 mmol/L (3.5-5.1)
--- NOTE | 2018-09-17 07:38 | NUR ---
Closing Note Report given to day shift RN. No signs or symptoms of distress noted at this time.
[2018-09-17] MEDS ORDERED: LIDOCAINE VISCOUS 2% 15ML UD ONE (08:44)
[2018-09-17] MEDS ORDERED: SODIUM CHLORIDE LOCK 10 ML ONE (08:44)
[2018-09-17] MEDS ORDERED: diphenhdrAMINE HCL 50 MG/1 ML VL ONE (08:45)
[2018-09-17 09:00] VITALS: BP 114/76
--- NOTE | 2018-09-17 09:00 | NUR ---
PATIENT VERY ANXIOUS RE SCHEDULE AND PROCEDURE,PATIENT RE ASSURED WILL INFORM HER ONCE GI LAB CALL FOR DAMPER WORKER
--- NOTE | 2018-09-17 12:25 | NUR ---
TO OPS HOLDING ROOM FOR EGD VIA BED.REPORT GIVEN TO UMA GARCIA
[2018-09-17 13:00] VITALS: BP 121/59
[2018-09-17] MEDS: MIDAZOLAM HCL 5 MG/ML-1ML VIAL ONE ×2 (13:29→13:32)
[2018-09-17] MEDS: fentaNYL CITRATE 100 MCG/2 ML VL ONE ×2 (13:29→13:32)
--- NOTE | 2018-09-17 14:15 | NUR ---
RECEIVED REPORT FROM PACU FOR CONTINUATION OF CARE
--- NOTE | 2018-09-17 14:20 | NUR ---
RECEIVED VIA BED AWAKE,ALERT,ORIENTED S/P EGD,REMOVAL OF PEG TUBE,DRESSING DRY AND INTACT
[2018-09-17] MEDS: FAMOTIDINE 20 MG TAB PO SCH ×2 (14:34→22:21)
[2018-09-17] MEDS: CITALOPRAM HYDROBR 20 MG TAB PO SCH (14:35)
[2018-09-17] MEDS: clonazePAM 0.5 MG TAB PO SCH ×2 (14:35→22:21)
[2018-09-17] MEDS: ASCORBIC ACID 500 MG TAB PO SCH (14:35)
[2018-09-17] MEDS: FLUCONAZOLE 100 MG TAB PO SCH (14:35)
--- NOTE | 2018-09-17 15:40 | NUR ---
KIMI NET FINISHER INFORMED ME THAT SHE ALREADY SPOKEN TO [facility] RE ORDER TO SCHEDULE AND ARRANGE OPS INFECTIOUS DISEASE CONSULTATION. Addendum: 09/17/18 at 1816 by Nicole Keller RN RN [facility]
--- NOTE | 2018-09-17 15:46 | NUR ---
PATIENT HAS AN APPOINTMENT WITH DR HIGGINS ON SEPTEMBER 24, 2018 AT 10:00AM.
--- NOTE | 2018-09-17 16:00 | NUR ---
CALLED DR.R. SILVESTRE,LEFT MESSAGE TO OFFICE STAFF TO CALL BACK
--- NOTE | 2018-09-17 16:15 | NUR ---
DR. Kelsi SILVESTRE CALLED BACK INFORMED AND NOTIFIED RE DR. RIDER ORDER,STATED CAN NOT DO SURGERY TODAY,INFORMED RECORD FROM [facility] OBTAINED.
[2018-09-17 16:57] VITALS: BP 107/51
--- NOTE | 2018-09-17 19:21 | NUR ---
REPORT GIVEN TO INCOMING NOC SHIFT RN ,NO DISTRESS.
--- NOTE | 2018-09-17 19:30 | NUR ---
Opening Shift Note Received report from Yamini GARCIA. Assumed care of patient, awake and alert. No S/S of distress/SOB, with moderate abdominal pain. Instructed on POC and to call for assist PRN, will continue to monitor for changes Q1hr and PRN.
[2018-09-17] MEDS: ATORVASTATIN 20 MG TAB PO SCH (22:21)
--- NOTE | 2018-09-17 22:40 | NUR ---
Wound care done per MD order.
[2018-09-17] MEDS: HYDROcodone-ACET 5/325MG TAB PO PRN (22:41)
[2018-09-18] MEDS: MORPHINE SULFATE 4 MG/ML SYR/VIAL IV PRN ×4 (00:33→18:46)
[2018-09-18] MEDS: PROMETHAZINE HCL 25 MG/ML 1ML IV PRN ×3 (00:33→17:12)
--- NOTE | 2018-09-18 01:31 | NUR ---
OFF Unit Patient went down via her own wheelchair.
--- NOTE | 2018-09-18 01:40 | NUR ---
Back to room.
[2018-09-18] MEDS: ONDANSETRON HCL 4 MG/2 ML VIAL IV PRN ×3 (03:32→18:46)
[2018-09-18] MEDS: GABAPENTIN 400 MG CAP PO SCH ×3 (05:44→21:39)
[2018-09-18] MEDS: METOCLOPRAMIDE HCL 10 MG TAB PO SCH ×3 (05:44→21:40)
[2018-09-18] MEDS: CLINDAMYCIN 600MG IV 50 ML IV SCH ×3 (05:44→21:39)
[2018-09-18 06:16] VITALS: BP 125/65
--- NOTE | 2018-09-18 06:20 | NUR ---
IV removal IV site infiltrated. IV DC'd with clean sterile technique, catheter fully intact. Pressure dressing applied to site. Patient tolerated well.
--- NOTE | 2018-09-18 06:30 | NUR ---
IV insertion IV access obtained, via clean sterile technique by inserting 22 gauge catheter at R forearm after 1 attempt(s). IV secured properly. No trauma to site. Patient tolerated well.
[2018-09-18 06:55] LABS: INR 0.87 (0.9-1.15); Partial Thromboplastin Time 28.9 sec (23.78-33.04); Prothrombin Time 9.4 sec (9.27-12.13)
[2018-09-18 07:08] LABS: BUN/Creatinine Ratio 22.2; Calcium 8.5 mg/dL (8.5-10.1); Magnesium 2.2 mg/dL (1.6-2.6); Potassium 3.9 mmol/L (3.5-5.1)
--- NOTE | 2018-09-18 07:30 | NUR ---
Opening Shift Note Assumed care of patient, awake and alert. No S/S of distress/SOB. Pain reported at 8/10 to abdomen. Pain management options discussed with patient. Instructed on POC and to call for assist PRN, will continue to monitor for changes Q1hr and PRN.
[2018-09-18 08:00] VITALS: BP 115/72
[2018-09-18 08:29] VITALS: BP 115/72
[2018-09-18] MEDS: CITALOPRAM HYDROBR 20 MG TAB PO SCH (11:23)
[2018-09-18] MEDS: clonazePAM 0.5 MG TAB PO SCH ×2 (11:23→21:40)
[2018-09-18] MEDS: FLUCONAZOLE 100 MG TAB PO SCH (11:23)
[2018-09-18] MEDS: ASCORBIC ACID 500 MG TAB PO SCH (11:24)
[2018-09-18] MEDS: FAMOTIDINE 20 MG TAB PO SCH ×2 (11:24→21:39)
[2018-09-18 13:27] VITALS: BP 96/52
--- NOTE | 2018-09-18 15:20 | NUR ---
DR. RIDER RETURNED CALL CONCERNING THE PATIENTS INFLAMED LEFT FORE ARM. ORDERS OBTAINED.
--- NOTE | 2018-09-18 15:37 | NUR ---
HOT PACK APPLIED TO LEFT FOREARM PER DR. RIDER'S ORDERS. PATIENT EDUCATED TO KEEP ON FOR AT LEAST 10MIN EVERY 6 HOURS.
[2018-09-18 15:43] LABS: Basophils # (auto) 0.1 uL; Basophils % (auto) 0.8 % (0.0-2.0); Eosinophils # (auto) 0.2 uL; Eosinophils % (auto) 1.7 % (0.0-7.0); Hematocrit 40.1 % (36.0-46.0); Hemoglobin 13.3 g/dL (12.2-16.2); Lymphocytes # (auto) 2.6 uL; Mean Corpuscular Hemoglobin 28.6 pg (28.0-32.0); Mean Corpuscular Hgb Conc. 33.3 g/dL (32.0-36.0); Mean Corpuscular Volume 85.8 fL (80.0-100.0); Monocytes % (auto) 11.3 % (0.0-12.0); Neutrophils # (auto) 5.1 uL; Neutrophils % (auto) 57.2 % (37.0-80.0); Nucleated Red Blood Cells % 0.2 %; Platelet Count (auto) 252 10^3/uL (140-450); Red Blood Cells 4.67 10^6/uL (4.0-5.20); Red Cell Distribution Width 14.7 % (11.8-14.3); White Blood Cell 8.9 10^3/uL (4.4-10.8)
--- NOTE | 2018-09-18 15:57 | NUR ---
NUTRITION ASSESSMENT NOTES Please refer to link notes of nutrition screen form filed under the intervention section of the plan of care for further details. Est. Needs: 1500 kcal to 2000 kcal (15-20 kcal/kgBW), 80 gms to 100 gms pro (0.8-1.0 gms/kgBW). Will continue to monitor pertinent labs and reassess nutrient need prn Thank you. Addendum: 09/18/18 at [address] Amended: Links added.
[2018-09-18] MEDS: HYDROcodone-ACET 5/325MG TAB PO PRN ×2 (16:32→21:40)
[2018-09-18 17:17] VITALS: BP 125/71
--- NOTE | 2018-09-18 19:30 | NUR ---
Opening Shift Note Received report from Jefferson GARCIA. Assumed care of patient, awake and alert, sitting on the wheelchair with friend at bedside. No S/S of distress/SOB, still with moderate pain on wound on the abdomen. Instructed on POC and to call for assist PRN, will continue to monitor for changes Q1hr and PRN.
--- NOTE | 2018-09-18 21:03 | NUR ---
Patient off unit Patient is being wheeled down by a friend.
--- NOTE | 2018-09-18 21:15 | NUR ---
Back to room.
--- NOTE | 2018-09-18 21:30 | NUR ---
Hot pack placed in the L forearm.
[2018-09-18] MEDS: ATORVASTATIN 20 MG TAB PO SCH (21:39)
[2018-09-18 22:00] VITALS: BP 117/73
--- NOTE | 2018-09-18 23:57 | NUR ---
Patient off unit, went down via wheelchair.
--- NOTE | 2018-09-19 00:09 | NUR ---
Back to room.
[2018-09-19] MEDS: MORPHINE SULFATE 4 MG/ML SYR/VIAL IV PRN ×2 (00:41→10:22)
[2018-09-19] MEDS: PROMETHAZINE HCL 25 MG/ML 1ML IV PRN ×2 (00:42→10:22)
--- NOTE | 2018-09-19 03:30 | NUR ---
Hot pack placed on L forearm.
[2018-09-19] MEDS: ONDANSETRON HCL 4 MG/2 ML VIAL IV PRN ×2 (04:03→16:00)
[2018-09-19 05:43] VITALS: BP_SYST 102; BP_SYST 158; BP_DIAS 109; BP_DIAS 67
[2018-09-19] MEDS: METOCLOPRAMIDE HCL 10 MG TAB PO SCH ×2 (05:54→14:28)
[2018-09-19] MEDS: GABAPENTIN 400 MG CAP PO SCH ×2 (05:54→14:28)
[2018-09-19] MEDS: CLINDAMYCIN 600MG IV 50 ML IV SCH ×2 (05:54→14:28)
[2018-09-19] MEDS ORDERED: BUPIVACAINE 0.25% INJ 50ML VIAL ONE (07:13)
--- NOTE | 2018-09-19 07:15 | NUR ---
Patient brought down to pre op.
[2018-09-19] MEDS ORDERED: ONDANSETRON HCL 4 MG/2 ML VIAL IV ONE (07:30)
[2018-09-19] MEDS ORDERED: HYDROmorphone HCL 2 MG/ML VL IV PRN (07:30)
[2018-09-19] MEDS ORDERED: NALOXONE HCL 0.4 MG/ML VIAL IV PRN (07:30)
[2018-09-19] MEDS ORDERED: SUCCINYLCHOLINE CHLORIDE 20 MG/ML 10ML VIAL IV ONE (07:31)
[2018-09-19] MEDS ORDERED: LIDOCAINE 1% HCL (LOCAL ANESTH.) INJ 20ML MDV ONE (07:31)
--- NOTE | 2018-09-19 07:35 | NUR ---
Care endorsed to Ann GARCIA.
[2018-09-19] MEDS ORDERED: MIDAZOLAM HCL 1MG/1ML-2 ML VIAL ONE ×2 (07:40→07:56)
--- NOTE | 2018-09-19 07:40 | NUR ---
opening patient down in OR for procedure. Will f/u with assessment upon arrival current potassium 3.9 cxr negative egd done with md garcía 09/17/18 per noc nurse inr 0.87 ua negative few bacteria found per noc nurse peg tube inserted at [facility] and fell out but not repaired, removed with md miranda 09/17 opening wound also on abdomen sent cultures of the wound
[2018-09-19] MEDS ORDERED: diphenhdrAMINE HCL 50 MG/1 ML VL ONE (07:41)
[2018-09-19] MEDS ORDERED: PROPOFOL 10 MG/ML 20 ML IV ONE (07:41)
[2018-09-19] MEDS ORDERED: GLYCOPYRROLATE 0.2 MG/ML 1ML VIAL ONE (07:41)
[2018-09-19 09:12] VITALS: BP_SYST 120; BP_SYST 151; BP_DIAS 101; BP_DIAS 71
--- NOTE | 2018-09-19 09:15 | NUR ---
I called [facility] [phone] and spoke with Ivy, she said patient was on service with them already and they would be able to accept her back. I faxed the home health order to [facility] as well as to [facility].
[2018-09-19] MEDS: ASCORBIC ACID 500 MG TAB PO SCH (10:22)
[2018-09-19] MEDS: FAMOTIDINE 20 MG TAB PO SCH (10:22)
[2018-09-19] MEDS: clonazePAM 0.5 MG TAB PO SCH (10:22)
[2018-09-19] MEDS: CITALOPRAM HYDROBR 20 MG TAB PO SCH (10:22)
[2018-09-19] MEDS: FLUCONAZOLE 100 MG TAB PO SCH (10:22)
--- NOTE | 2018-09-19 10:38 | NUR ---
Amanda RIDER ORDERS FOR A DISCHARGE, AND TO FOLLOW UP WITH DR SILVESTRE
[2018-09-19 11:28] VITALS: BP_SYST 100; BP_SYST 142; BP_DIAS 42; BP_DIAS 89
[2018-09-19] MEDS ORDERED: FLUC200T50 PO (11:30)
[2018-09-19] MEDS ORDERED: CLIN1CAP4 PO (11:30)
[2018-09-19 15:10] VITALS: BP 100/42
[2018-09-19 16:37] VITALS: BP 121/51
--- NOTE | 2018-09-19 17:43 | NUR ---
CLOSING Discharge instructions given as ordered. Encourage to follow up with PMD as instructed. All questions and concerns addressed. Patient verbalized understanding. Medication reconciliation form completed and copy given to patient. IV removed with catheter intact, pressure dressing applied. Patient taken to vehicle via wheelchair with all personal belongings, accompanied by staff and family member. No distress noted at time of departure.
== END 2018-09-19 17:41 | disposition home health service (06) | DRG 711 ==
LOC: ER 16:31 → OVERFLOW 09-15 06:21 → WEST WING 09-15 09:58
PROVIDERS: ADMIT Nurse Practitioner; ATTEND Internal Medicine
PROC: 0DP68UZ Removal of Feeding Device from Stomach, Via Natural or Artificial Opening Endoscopic (ICD-10-PCS; principal; 2018-09-17 13:25)
PROC: 05PY03Z Removal of Infusion Device from Upper Vein, Open Approach (ICD-10-PCS; 2018-09-19)
DX: T81.49XA Infection following a procedure, other surgical site, initial encounter (principal); T82.514A Breakdown (mechanical) of infusion catheter, initial encounter; F11.20 Opioid dependence, uncomplicated; K94.23 Gastrostomy malfunction; F20.9 Schizophrenia, unspecified; G35 Multiple sclerosis; G62.9 Polyneuropathy, unspecified; L03.311 Cellulitis of abdominal wall; E78.5 Hyperlipidemia, unspecified; F32.9 Major depressive disorder, single episode, unspecified; K21.9 Gastro-esophageal reflux disease without esophagitis; G47.00 Insomnia, unspecified; E66.9 Obesity, unspecified; J45.909 Unspecified asthma, uncomplicated; K43.9 Ventral hernia without obstruction or gangrene; N83.209 Unspecified ovarian cyst, unspecified side; F12.90 Cannabis use, unspecified, uncomplicated; F17.210 Nicotine dependence, cigarettes, uncomplicated; Y83.8 Other surgical procedures as the cause of abnormal reaction of the patient, or of later complication, without mention of misadventure at the time of the procedure; Z90.710 Acquired absence of both cervix and uterus; Z82.49 Family history of ischemic heart disease and other diseases of the circulatory system; Z83.3 Family history of diabetes mellitus; Y92.89 Other specified places as the place of occurrence of the external cause
CPT/HCPCS: 36415; 71046; 74176; 80048; 80053; 81001; 83735; 84702; 85025; 85610; 85730; 86850; 86900; 86901; 87070; 87205; 93971; 96361; 96374; 96375; A6257; G0378; J0330; J2001; J2250; J2405; J2704; J3490

== ENCOUNTER 2019-04-08 16:39 | Inpatient (IN) | payer MEDICAID ==
[~2019-04-08] VITALS: Ht 162.6 cm; Wt 104.7 kg
[~2019-04-08 16:39] MED LIST changes: +CLIN300C8 PO; +FLUC200T50 PO; -LORA-654; +LORA0.5T12
[2019-04-08] MEDS ORDERED: SODIUM CHLORIDE 0.9% 1,000 ML IV ONE (18:28)
[2019-04-08 18:57] LABS: Basophils # (auto) 0.1 uL; Basophils % (auto) 1.1 % (0.0-2.0); Eosinophils # (auto) 0.1 uL; Eosinophils % (auto) 0.9 % (0.0-7.0); Hematocrit 42.8 % (36.0-46.0); Hemoglobin 14.5 g/dL (12.2-16.2); Lymphocytes # (auto) 2.5 uL; Mean Corpuscular Hemoglobin 28.6 pg (28.0-32.0); Mean Corpuscular Volume 84.3 fL (80.0-100.0); Monocytes # (auto) 0.5 uL; Monocytes % (auto) 6.1 % (0.0-12.0); Neutrophils # (auto) 5.1 uL; Neutrophils % (auto) 61.9 % (37.0-80.0); Platelet Count (auto) 303 10^3/uL (140-450); Red Blood Cells 5.07 10^6/uL (4.0-5.20); Red Cell Distribution Width 13.3 % (11.8-14.3); White Blood Cell 8.2 10^3/uL (4.4-10.8)
[2019-04-08 19:17] LABS: Albumin 3.4 g/dL (3.4-5.0); BUN/Creatinine Ratio 19.4; Calcium 9.2 mg/dL (8.5-10.1); Potassium 3.4 mmol/L (3.5-5.1)
[2019-04-08 19:19] LABS: Bilirubin, Total 0.3 mg/dL (0.2-1.0); Total Protein 7.4 g/dL (6.4-8.2)
[2019-04-08] MEDS ORDERED: PPN PER PHARMACY 0 ML IV SCH (22:15)
[2019-04-08] MEDS ORDERED: LORazepam 2MG/ML-1ML VIAL IV PRN (22:15)
[2019-04-08] MEDS ORDERED: ALBUTEROL SULF 2.5 MG/0.5ML(0.5%) NEB SOLN NEB PRN (22:15)
[2019-04-08] MEDS: SODIUM CHLORIDE 0.9% 1,000 ML IV SCH (23:11)
[2019-04-09] VITALS (7 sets, daily range): BP systolic 90–119; BP diastolic 48–76
[2019-04-09] MEDS ORDERED: MORP60TA25 PO (00:56)
[2019-04-09] MEDS ORDERED: PERCOT PO (00:56)
[2019-04-09] MEDS ORDERED: LEVE250T18 PO (00:56)
[2019-04-09] MEDS: ONDANSETRON HCL 4 MG/2 ML VIAL IV PRN ×5 (01:11→20:09)
[2019-04-09] MEDS: MORPHINE SULFATE 4 MG/ML SYR/VIAL IV PRN ×4 (01:11→10:51)
[2019-04-09] MEDS ORDERED: HYDR-5028 PO (01:48)
[2019-04-09] MEDS ORDERED: KETOROLAC TROMETH 30 MG/ML 1ML VIAL IV ONE (06:00)
[2019-04-09 06:52] LABS: BUN/Creatinine Ratio 20.3; Calcium 8.8 mg/dL (8.5-10.1); Potassium 3.7 mmol/L (3.5-5.1)
[2019-04-09 07:16] LABS: Bilirubin, Total 0.3 mg/dL (0.2-1.0); Total Protein 6.2 g/dL (6.4-8.2)
[2019-04-09 07:33] LABS: Albumin 2.9 g/dL (3.4-5.0); Bilirubin, Direct 0.1 mg/dL (0-0.2)
[2019-04-09 07:54] LABS: Phosphorus 2.9 mg/dL (2.5-4.90)
[2019-04-09] MEDS: LEVETIRACETAM INJ 500 MG in D5W 5% 100 ML IV SCH (09:14)
[2019-04-09] MEDS: FAMOTIDINE (10MG/ML) 2ML VL IV SCH ×2 (09:14→21:32)
[2019-04-09] MEDS: SODIUM CHLORIDE 0.9% 1,000 ML IV SCH (09:25)
[2019-04-09 14:41] LABS: INR 0.95 (0.9-1.15)
[2019-04-09] MEDS: HYDROmorphone HCL 2 MG/ML VL IV PRN ×2 (15:38→20:09)
[2019-04-10 00:06] LABS: Urine Bacteria FEW /hpf (None Seen); Urine Blood Negative /uL (Negative); Urine Mucus FEW (None Seen); Urine Specific Gravity 1.031 (1.001-1.035); Urine WBC 21 /hpf (0 - 5)
[2019-04-10] MEDS: HYDROmorphone HCL 2 MG/ML VL IV PRN ×6 (00:24→21:04)
[2019-04-10] MEDS: ONDANSETRON HCL 4 MG/2 ML VIAL IV PRN ×5 (04:18→21:05)
[2019-04-10 05:59] VITALS: BP 104/65
[2019-04-10 07:44] LABS: Basophils # (auto) 0.1 uL; Basophils % (auto) 1.1 % (0.0-2.0); Eosinophils # (auto) 0 uL; Eosinophils % (auto) 0.5 % (0.0-7.0); Hematocrit 39.1 % (36.0-46.0); Hemoglobin 13.6 g/dL (12.2-16.2); Lymphocytes # (auto) 1.9 uL; Lymphocytes % (auto) 22.7 % (10.0-50.0); Mean Corpuscular Hemoglobin 29.3 pg (28.0-32.0); Mean Corpuscular Hgb Conc. 34.9 g/dL (32.0-36.0); Mean Corpuscular Volume 83.9 fL (80.0-100.0); Monocytes # (auto) 0.5 uL; Monocytes % (auto) 5.7 % (0.0-12.0); Neutrophils # (auto) 5.8 uL; Platelet Count (auto) 295 10^3/uL (140-450); Red Blood Cells 4.66 10^6/uL (4.0-5.20); Red Cell Distribution Width 13.6 % (11.8-14.3); White Blood Cell 8.3 10^3/uL (4.4-10.8)
[2019-04-10] MEDS: SODIUM CHLORIDE 0.9% 1,000 ML IV SCH ×2 (07:52→17:13)
[2019-04-10 08:05] LABS: BUN/Creatinine Ratio 17.9; Calcium 8.9 mg/dL (8.5-10.1); Potassium 3.7 mmol/L (3.5-5.1)
[2019-04-10 08:07] LABS: Bilirubin, Total 0.4 mg/dL (0.2-1.0); Total Protein 6.6 g/dL (6.4-8.2)
[2019-04-10 09:00] VITALS: BP 113/66
[2019-04-10] MEDS ORDERED: KETOROLAC TROMETH 30 MG/ML 1ML VIAL IV ONE (09:15)
[2019-04-10] MEDS ORDERED: LABETALOL HCL 5 MG/ML 4ML SYRINGE IV PRN (09:15)
[2019-04-10] MEDS ORDERED: ONDANSETRON HCL 4 MG/2 ML VIAL IV PRN (09:15)
[2019-04-10] MEDS ORDERED: MORPHINE SULFATE 4 MG/ML SYR/VIAL IV PRN (09:15)
[2019-04-10] MEDS ORDERED: HYDROmorphone HCL 2 MG/ML VL IV PRN (09:15)
[2019-04-10] MEDS ORDERED: ACCU-CHEK COMFORT CURVE STRIP VI ONE (09:15)
[2019-04-10] MEDS ORDERED: ePHEDrine SULFATE 50 MG/ML AMP IV PRN (09:15)
[2019-04-10] MEDS ORDERED: CLINDAMYCIN 600MG IV 50 ML IV ONE (09:22)
[2019-04-10] MEDS ORDERED: fentaNYL CITRATE 100 MCG/2 ML VL ONE (09:29)
[2019-04-10] MEDS ORDERED: MEPERIDINE HCL (25 MG/ML) 1ML VIAL ONE (09:29)
[2019-04-10] MEDS ORDERED: MIDAZOLAM HCL 1MG/1ML-2 ML VIAL ONE (09:29)
[2019-04-10] MEDS ORDERED: PROPOFOL 10 MG/ML 20 ML IV ONE (09:38)
[2019-04-10] MEDS ORDERED: DexAMETHasone SOD PHOS 10MG/1ML VIAL INJ ONE (09:38)
[2019-04-10] MEDS: PANTOPRAZOLE 40 MG TAB PO SCH (10:30)
[2019-04-10] MEDS: LEVETIRACETAM INJ 500 MG in D5W 5% 100 ML IV SCH (12:53)
[2019-04-10 12:59] VITALS: BP 102/59
[2019-04-10 16:49] VITALS: BP 127/74
[2019-04-10 22:00] VITALS: BP 121/71
[2019-04-10] MEDS: diphenhdrAMINE HCL 50 MG/1 ML VL IV PRN (22:51)
[2019-04-11] MEDS: HYDROmorphone HCL 2 MG/ML VL IV PRN ×6 (01:04→23:42)
[2019-04-11] MEDS: ONDANSETRON HCL 4 MG/2 ML VIAL IV PRN ×5 (01:04→23:43)
[2019-04-11] MEDS: SODIUM CHLORIDE 0.9% 1,000 ML IV SCH ×2 (04:20→17:40)
[2019-04-11 05:00] VITALS: BP 118/59
[2019-04-11 06:29] LABS: Basophils # (auto) 0 uL; Basophils % (auto) 0.3 % (0.0-2.0); Eosinophils # (auto) 0 uL; Eosinophils % (auto) 0.2 % (0.0-7.0); Hematocrit 39.5 % (36.0-46.0); Lymphocytes # (auto) 2.1 uL; Lymphocytes % (auto) 18.5 % (10.0-50.0); Mean Corpuscular Hemoglobin 28.9 pg (28.0-32.0); Mean Corpuscular Volume 87.5 fL (80.0-100.0); Monocytes # (auto) 0.8 uL; Monocytes % (auto) 7.3 % (0.0-12.0); Neutrophils # (auto) 8.3 uL; Neutrophils % (auto) 73.7 % (37.0-80.0); Nucleated Red Blood Cells % 0.1 %; Platelet Count (auto) 287 10^3/uL (140-450); Red Blood Cells 4.52 10^6/uL (4.0-5.20); Red Cell Distribution Width 13.5 % (11.8-14.3); White Blood Cell 11.3 10^3/uL (4.4-10.8)
[2019-04-11 06:59] LABS: BUN/Creatinine Ratio 16.4; Calcium 8.9 mg/dL (8.5-10.1); Potassium 3.6 mmol/L (3.5-5.1)
[2019-04-11 09:00] VITALS: BP 119/71
[2019-04-11] MEDS: PANTOPRAZOLE 40 MG TAB PO SCH (10:00)
[2019-04-11] MEDS ORDERED: SUCCINYLCHOLINE CHLORIDE 20 MG/ML 10ML VIAL IV ONE (10:14)
[2019-04-11] MEDS ORDERED: KETOROLAC TROMETH 30 MG/ML 1ML VIAL IV ONE (10:15)
[2019-04-11] MEDS ORDERED: ONDANSETRON HCL 4 MG/2 ML VIAL IV PRN (10:15)
[2019-04-11] MEDS ORDERED: MORPHINE SULFATE 4 MG/ML SYR/VIAL IV PRN (10:15)
[2019-04-11] MEDS ORDERED: LABETALOL HCL 5 MG/ML 4ML SYRINGE IV PRN (10:15)
[2019-04-11] MEDS ORDERED: LEVOFLOXACIN 500MG 100 ML IV ONE (10:15)
[2019-04-11] MEDS ORDERED: METOCLOPRAMIDE HCL 5MG/ml INJ 2ml VIAL IV PRN (10:15)
[2019-04-11] MEDS ORDERED: ePHEDrine SULFATE 50 MG/ML AMP IV PRN (10:15)
[2019-04-11] MEDS ORDERED: HYDROmorphone HCL 2 MG/ML VL IV PRN (10:15)
[2019-04-11] MEDS ORDERED: MIDAZOLAM HCL 1MG/1ML-2 ML VIAL IV PRN (10:15)
[2019-04-11] MEDS ORDERED: MIDAZOLAM HCL 1MG/1ML-2 ML VIAL ONE (10:23)
[2019-04-11] MEDS ORDERED: MEPERIDINE HCL (50 MG/ML) 1 ML VIAL ONE (10:23)
[2019-04-11] MEDS ORDERED: fentaNYL CITRATE 100 MCG/2 ML VL ONE ×2 (10:23→11:06)
[2019-04-11] MEDS ORDERED: DexAMETHasone SOD PHOS 10MG/1ML VIAL INJ ONE (10:29)
[2019-04-11] MEDS ORDERED: PROPOFOL 10 MG/ML 20 ML IV ONE (10:29)
[2019-04-11] MEDS ORDERED: KETOROLAC TROMETH 30 MG/ML 1ML VIAL ONE (10:53)
[2019-04-11] MEDS ORDERED: HYDROmorphone HCL 2 MG/ML VL ONE (12:12)
[2019-04-11] MEDS: LEVETIRACETAM INJ 500 MG in D5W 5% 100 ML IV SCH (12:56)
[2019-04-11 13:00] VITALS: BP 102/71
[2019-04-11 17:00] VITALS: BP 133/75
[2019-04-11 20:06] VITALS: BP 133/75
[2019-04-11 22:05] VITALS: BP 141/76
[2019-04-11] MEDS: diphenhdrAMINE HCL 50 MG/1 ML VL IV PRN (23:54)
[2019-04-12] MEDS: ONDANSETRON HCL 4 MG/2 ML VIAL IV PRN ×5 (03:18→20:27)
[2019-04-12] MEDS: HYDROmorphone HCL 2 MG/ML VL IV PRN ×5 (03:18→20:34)
[2019-04-12 05:10] VITALS: BP 121/70
[2019-04-12] MEDS: SODIUM CHLORIDE 0.9% 1,000 ML IV SCH ×2 (06:30→20:20)
[2019-04-12 09:00] VITALS: BP 119/67
[2019-04-12] MEDS: PANTOPRAZOLE 40 MG TAB PO SCH (09:10)
[2019-04-12] MEDS: LEVETIRACETAM INJ 500 MG in D5W 5% 100 ML IV SCH (09:12)
[2019-04-12] MEDS: diphenhdrAMINE HCL 50 MG/1 ML VL IV PRN ×2 (09:12→20:28)
[2019-04-12] MEDS ORDERED: FAMOTIDINE (10MG/ML) 2ML VL IV ONE (12:15)
[2019-04-12 13:00] VITALS: BP 125/79
[2019-04-12 16:27] VITALS: BP 130/67
[2019-04-12 21:53] VITALS: BP 130/73
[2019-04-12] MEDS ORDERED: PANTOPRAZOLE 40 MG/10 ML VIAL INJ IV SCH (22:00)
[2019-04-13] MEDS: ONDANSETRON HCL 4 MG/2 ML VIAL IV PRN ×6 (00:26→22:13)
[2019-04-13] MEDS: HYDROmorphone HCL 2 MG/ML VL IV PRN ×6 (00:28→22:18)
[2019-04-13] MEDS: SODIUM CHLORIDE 0.9% 1,000 ML IV SCH ×2 (04:16→22:18)
[2019-04-13] MEDS: diphenhdrAMINE HCL 50 MG/1 ML VL IV PRN ×3 (04:23→19:26)
[2019-04-13 05:00] VITALS: BP 128/61
[2019-04-13 09:00] VITALS: BP 121/67
[2019-04-13] MEDS: LEVETIRACETAM INJ 500 MG in D5W 5% 100 ML IV SCH (11:09)
[2019-04-13] MEDS: FAMOTIDINE (10MG/ML) 2ML VL IV SCH (11:09)
[2019-04-13 12:33] VITALS: BP 114/68
[2019-04-13 16:48] VITALS: BP 118/56
[2019-04-13 21:46] VITALS: BP 116/67
[2019-04-14] MEDS: ONDANSETRON HCL 4 MG/2 ML VIAL IV PRN ×6 (02:03→23:21)
[2019-04-14] MEDS: HYDROmorphone HCL 2 MG/ML VL IV PRN ×6 (02:10→23:22)
[2019-04-14] MEDS: diphenhdrAMINE HCL 50 MG/1 ML VL IV PRN ×2 (02:12→19:38)
[2019-04-14 05:46] VITALS: BP 106/57
[2019-04-14 06:39] LABS: Basophils # (auto) 0 uL; Basophils % (auto) 0.2 % (0.0-2.0); Eosinophils # (auto) 0.1 uL; Hematocrit 36.8 % (36.0-46.0); Hemoglobin 12.6 g/dL (12.2-16.2); Lymphocytes # (auto) 1.6 uL; Lymphocytes % (auto) 21.1 % (10.0-50.0); Mean Corpuscular Hemoglobin 29.3 pg (28.0-32.0); Mean Corpuscular Hgb Conc. 34.3 g/dL (32.0-36.0); Mean Corpuscular Volume 85.5 fL (80.0-100.0); Monocytes # (auto) 0.7 uL; Monocytes % (auto) 9.7 % (0.0-12.0); Platelet Count (auto) 228 10^3/uL (140-450); Red Cell Distribution Width 13.6 % (11.8-14.3); White Blood Cell 7.5 10^3/uL (4.4-10.8)
[2019-04-14 06:52] LABS: BUN/Creatinine Ratio 9.6; Calcium 8.5 mg/dL (8.5-10.1); Potassium 3.1 mmol/L (3.5-5.1)
[2019-04-14 08:30] VITALS: BP 113/62
[2019-04-14] MEDS: LEVETIRACETAM INJ 500 MG in D5W 5% 100 ML IV SCH (10:13)
[2019-04-14] MEDS: FAMOTIDINE (10MG/ML) 2ML VL IV SCH (10:14)
[2019-04-14] MEDS ORDERED: POTASSIUM EFFERVESENT TAB 25 MEQ PEG ONE (12:30)
[2019-04-14 13:00] VITALS: BP 125/72
[2019-04-14] MEDS: SODIUM CHLORIDE 0.9% 1,000 ML IV SCH ×2 (15:00→23:25)
[2019-04-14 17:02] VITALS: BP 141/82
[2019-04-14] MEDS: Jevity 1.2 Cal/Fiber 1 Liter GT SCH ×2 (18:30→22:43)
[2019-04-14 22:00] VITALS: BP 122/63
[2019-04-14 22:03] VITALS: BP 141/82
[2019-04-15] MEDS: Jevity 1.2 Cal/Fiber 1 Liter GT SCH ×3 (02:34→10:10)
[2019-04-15] MEDS: ONDANSETRON HCL 4 MG/2 ML VIAL IV PRN ×2 (03:22→08:28)
[2019-04-15] MEDS: diphenhdrAMINE HCL 50 MG/1 ML VL IV PRN (03:24)
[2019-04-15] MEDS: HYDROmorphone HCL 2 MG/ML VL IV PRN ×2 (03:24→08:27)
[2019-04-15 05:29] VITALS: BP 123/64
[2019-04-15 05:45] LABS: Basophils # (auto) 0 uL; Basophils % (auto) 0.4 % (0.0-2.0); Eosinophils # (auto) 0.2 uL; Eosinophils % (auto) 3.2 % (0.0-7.0); Hematocrit 37.1 % (36.0-46.0); Hemoglobin 12.5 g/dL (12.2-16.2); Lymphocytes # (auto) 1.8 uL; Lymphocytes % (auto) 26.9 % (10.0-50.0); Mean Corpuscular Hemoglobin 29.1 pg (28.0-32.0); Mean Corpuscular Hgb Conc. 33.6 g/dL (32.0-36.0); Mean Corpuscular Volume 86.4 fL (80.0-100.0); Monocytes # (auto) 0.7 uL; Monocytes % (auto) 10.5 % (0.0-12.0); Neutrophils # (auto) 3.9 uL; Nucleated Red Blood Cells % 0.1 %; Platelet Count (auto) 256 10^3/uL (140-450); Red Blood Cells 4.29 10^6/uL (4.0-5.20); Red Cell Distribution Width 13.7 % (11.8-14.3); White Blood Cell 6.5 10^3/uL (4.4-10.8)
[2019-04-15 05:58] LABS: Calcium 8.8 mg/dL (8.5-10.1); Potassium 3.2 mmol/L (3.5-5.1)
[2019-04-15 06:01] LABS: BUN/Creatinine Ratio 16.1
[2019-04-15 08:32] VITALS: BP 128/58
[2019-04-15] MEDS: FAMOTIDINE (10MG/ML) 2ML VL IV SCH (10:10)
[2019-04-15] MEDS: LEVETIRACETAM INJ 500 MG in D5W 5% 100 ML IV SCH (10:10)
== END 2019-04-15 14:00 | disposition home or self-care (01) | DRG 43 ==
LOC: ER 16:39 → OVERFLOW 16:40 → WEST WING 23:29
PROVIDERS: ADMIT Nurse Practitioner; ATTEND Internal Medicine
PROC: 0DJ08ZZ Inspection of Upper Intestinal Tract, Via Natural or Artificial Opening Endoscopic (ICD-10-PCS; principal; 2019-04-10 09:31)
PROC: 0DH63UZ Insertion of Feeding Device into Stomach, Percutaneous Approach (ICD-10-PCS; 2019-04-11)
DX: G35 Multiple sclerosis (principal); E44.0 Moderate protein-calorie malnutrition; R13.10 Dysphagia, unspecified; F20.9 Schizophrenia, unspecified; E66.01 Morbid (severe) obesity due to excess calories; G89.4 Chronic pain syndrome; K29.70 Gastritis, unspecified, without bleeding; J45.909 Unspecified asthma, uncomplicated; E86.0 Dehydration; E78.5 Hyperlipidemia, unspecified; K21.9 Gastro-esophageal reflux disease without esophagitis; F12.90 Cannabis use, unspecified, uncomplicated; F17.210 Nicotine dependence, cigarettes, uncomplicated; G40.909 Epilepsy, unspecified, not intractable, without status epilepticus; K29.80 Duodenitis without bleeding; K66.0 Peritoneal adhesions (postprocedural) (postinfection); F41.9 Anxiety disorder, unspecified; E87.6 Hypokalemia; Z68.39 Body mass index [BMI] 39.0-39.9, adult; Z90.710 Acquired absence of both cervix and uterus; Z88.0 Allergy status to penicillin; Z88.2 Allergy status to sulfonamides; Z88.8 Allergy status to other drugs, medicaments and biological substances; Z82.49 Family history of ischemic heart disease and other diseases of the circulatory system; Z83.3 Family history of diabetes mellitus; Z90.49 Acquired absence of other specified parts of digestive tract
CPT/HCPCS: 36415; 80048; 80053; 80076; 81001; 83735; 84100; 84443; 84702; 85025; 85610; 86850; 86900; 86901; 92610; 94761; G0378; J0330; J1100; J1885; J1956; J2250; J2405; J2704; J3490; J7060

== ENCOUNTER 2019-04-20 18:19 | Emergency (ER) | payer MEDICAID ==
[~2019-04-20] VITALS: Ht 165.1 cm; Wt 117.9 kg
[~2019-04-20 18:19] MED LIST changes: +HYDR-5028 PO; +LEVE250T18 PO; +MORP60TA25 PO; +PERCOT PO
[2019-04-20 23:05] VITALS: BP 119/62
[2019-04-20 23:51] LABS: INR < 0.93 (0.9-1.15); Partial Thromboplastin Time 28.6 sec (23.64-32.05)
[2019-04-20 23:53] LABS: Albumin 3.2 g/dL (3.4-5.0); BUN/Creatinine Ratio 8.3; Calcium 9.2 mg/dL (8.5-10.1); Potassium 3.4 mmol/L (3.5-5.1)
[2019-04-20 23:55] LABS: Bilirubin, Total 0.4 mg/dL (0.2-1.0); Total Protein 7.2 g/dL (6.4-8.2)
[2019-04-20 23:57] LABS: Basophils # (auto) 0.1 uL; Basophils % (auto) 0.5 % (0.0-2.0); Eosinophils # (auto) 0.3 uL; Eosinophils % (auto) 2.7 % (0.0-7.0); Hematocrit 41.5 % (36.0-46.0); Hemoglobin 13.8 g/dL (12.2-16.2); Lymphocytes # (auto) 1.7 uL; Lymphocytes % (auto) 15.7 % (10.0-50.0); Mean Corpuscular Hgb Conc. 33.2 g/dL (32.0-36.0); Mean Corpuscular Volume 87.2 fL (80.0-100.0); Monocytes # (auto) 0.8 uL; Monocytes % (auto) 7.4 % (0.0-12.0); Neutrophils # (auto) 7.9 uL; Neutrophils % (auto) 73.7 % (37.0-80.0); Platelet Count (auto) 288 10^3/uL (140-450); Red Blood Cells 4.76 10^6/uL (4.0-5.20); Red Cell Distribution Width 13.7 % (11.8-14.3); White Blood Cell 10.7 10^3/uL (4.4-10.8)
== END 2019-04-21 00:13 | disposition home or self-care (01) ==
LOC: ER 18:19
DX: K94.23 Gastrostomy malfunction (principal); F17.210 Nicotine dependence, cigarettes, uncomplicated; Z90.49 Acquired absence of other specified parts of digestive tract; Z90.710 Acquired absence of both cervix and uterus
CPT/HCPCS: 36415; 74176; 80053; 85025; 85610; 85730

== ENCOUNTER 2019-05-06 18:06 | Emergency (ER) | payer MEDICAID ==
[~2019-05-06] VITALS: Ht 165.1 cm; Wt 98.9 kg
[2019-05-06 23:15] VITALS: BP 113/63
[2019-05-06] MEDS ORDERED: DOXYCYCLINE 100 MG TAB/CAP PO ONE (23:15)
[2019-05-06] MEDS ORDERED: DOXYCYCLINE 100 MG TAB/CAP GT ONE (23:30)
[2019-05-07] MEDS ORDERED: Acetam/CODEINE 120mg/12mg per 5mL UD GT PRN
== END 2019-05-07 01:39 | disposition home or self-care (01) ==
LOC: ER 18:07
DX: L03.311 Cellulitis of abdominal wall (principal); J45.909 Unspecified asthma, uncomplicated; E78.5 Hyperlipidemia, unspecified; F17.210 Nicotine dependence, cigarettes, uncomplicated; F12.10 Cannabis abuse, uncomplicated; Z90.710 Acquired absence of both cervix and uterus; Z88.0 Allergy status to penicillin; Z88.2 Allergy status to sulfonamides; Z88.8 Allergy status to other drugs, medicaments and biological substances; Z79.899 Other long term (current) drug therapy
CPT/HCPCS: 74176

== ENCOUNTER 2019-05-16 10:30 | Emergency (ER) | payer MEDICAID ==
[~2019-05-16] VITALS: Ht 165.1 cm; Wt 99.8 kg
[2019-05-16 14:03] VITALS: BP 99/47
== END 2019-05-16 14:52 | disposition home or self-care (01) ==
LOC: ER 10:31
DX: K94.23 Gastrostomy malfunction (principal); J45.909 Unspecified asthma, uncomplicated; E78.5 Hyperlipidemia, unspecified; F17.210 Nicotine dependence, cigarettes, uncomplicated; F12.10 Cannabis abuse, uncomplicated; Z90.710 Acquired absence of both cervix and uterus; Z88.0 Allergy status to penicillin; Z88.1 Allergy status to other antibiotic agents; Z88.6 Allergy status to analgesic agent; Z79.899 Other long term (current) drug therapy
CPT/HCPCS: 74018

== ENCOUNTER 2019-06-06 23:14 | Emergency (ER) | payer MEDICAID ==
[~2019-06-06] VITALS: Ht 165.1 cm; Wt 98.9 kg
[2019-06-06 23:58] VITALS: BP 128/54
[2019-06-07] MEDS ORDERED: NEOMYCIN-BACITRACIN-POLYM UNITDOSE PKG TOP OINT TOP ONE (01:37)
[2019-06-07] MEDS ORDERED: NEOMYCIN-BACITRACIN-POLYM 15GM TOP OINT TOP SCH (10:00)
== END 2019-06-07 02:49 | disposition home or self-care (01) ==
LOC: ER 23:15
DX: T85.598A Other mechanical complication of other gastrointestinal prosthetic devices, implants and grafts, initial encounter (principal); L03.311 Cellulitis of abdominal wall; J45.909 Unspecified asthma, uncomplicated; E78.5 Hyperlipidemia, unspecified; Z88.0 Allergy status to penicillin; Z88.2 Allergy status to sulfonamides; Z88.8 Allergy status to other drugs, medicaments and biological substances; Y83.9 Surgical procedure, unspecified as the cause of abnormal reaction of the patient, or of later complication, without mention of misadventure at the time of the procedure; Y92.89 Other specified places as the place of occurrence of the external cause

== ENCOUNTER 2019-06-10 11:54 | Emergency (ER) | payer MEDICAID ==
[~2019-06-10] VITALS: Ht 165.1 cm; Wt 100.7 kg
[2019-06-10 17:13] VITALS: BP 106/60
== END 2019-06-10 17:18 | disposition home or self-care (01) ==
LOC: ER 12:03
DX: J45.909 Unspecified asthma, uncomplicated (principal); E78.5 Hyperlipidemia, unspecified; F17.210 Nicotine dependence, cigarettes, uncomplicated; Z90.710 Acquired absence of both cervix and uterus; Z93.1 Gastrostomy status; Z48.01 Encounter for change or removal of surgical wound dressing; Z88.0 Allergy status to penicillin; Z88.2 Allergy status to sulfonamides; Z88.6 Allergy status to analgesic agent; Z79.899 Other long term (current) drug therapy

== ENCOUNTER 2019-06-18 00:48 | Emergency (ER) | payer MEDICAID ==
[~2019-06-18] VITALS: Ht 165.1 cm; Wt 98.0 kg
[2019-06-18] MEDS ORDERED: SODIUM CHLORIDE 0.9% 1,000 ML IVB ONE (03:25)
[2019-06-18] MEDS ORDERED: MORPHINE SULFATE 4 MG/ML SYR/VIAL IV ONE (03:30)
[2019-06-18] MEDS ORDERED: ONDANSETRON HCL 4 MG/2 ML VIAL IV ONE (03:30)
[2019-06-18 03:45] LABS: Basophils # (auto) 0 uL; Basophils % (auto) 0.3 % (0.0-2.0); Eosinophils # (auto) 0.2 uL; Eosinophils % (auto) 1.9 % (0.0-7.0); Hematocrit 39.1 % (36.0-46.0); Hemoglobin 12.9 g/dL (12.2-16.2); Lymphocytes # (auto) 2.2 uL; Lymphocytes % (auto) 23.9 % (10.0-50.0); Mean Corpuscular Hemoglobin 27.8 pg (28.0-32.0); Mean Corpuscular Hgb Conc. 33.1 g/dL (32.0-36.0); Mean Corpuscular Volume 84.2 fL (80.0-100.0); Monocytes # (auto) 0.8 uL; Monocytes % (auto) 8.2 % (0.0-12.0); Neutrophils # (auto) 6.1 uL; Neutrophils % (auto) 65.7 % (37.0-80.0); Platelet Count (auto) 283 10^3/uL (140-450); Red Blood Cells 4.65 10^6/uL (4.0-5.20); Red Cell Distribution Width 14.4 % (11.8-14.3); White Blood Cell 9.3 10^3/uL (4.4-10.8)
[2019-06-18 04:06] LABS: Albumin 2.9 g/dL (3.4-5.0); BUN/Creatinine Ratio 13.4; Calcium 8.7 mg/dL (8.5-10.1); Potassium 3.7 mmol/L (3.5-5.1)
[2019-06-18 04:09] LABS: Bilirubin, Total 0.3 mg/dL (0.2-1.0); Total Protein 6.3 g/dL (6.4-8.2)
[2019-06-18 05:25] LABS: Urine Bacteria MOD /hpf (None Seen); Urine Blood Negative /uL (Negative); Urine Mucus FEW (None Seen); Urine Specific Gravity 1.008 (1.001-1.035); Urine WBC 11 /hpf (0 - 5)
[2019-06-18 06:00] VITALS: BP 101/54
== END 2019-06-18 07:11 | disposition home or self-care (01) ==
LOC: ER 00:50
DX: R10.11 Right upper quadrant pain (principal); K94.23 Gastrostomy malfunction; J45.909 Unspecified asthma, uncomplicated; E78.00 Pure hypercholesterolemia, unspecified; F17.210 Nicotine dependence, cigarettes, uncomplicated; Z90.49 Acquired absence of other specified parts of digestive tract; Z90.710 Acquired absence of both cervix and uterus; Z88.0 Allergy status to penicillin; Z88.2 Allergy status to sulfonamides; Z88.8 Allergy status to other drugs, medicaments and biological substances; Z79.2 Long term (current) use of antibiotics; Z79.891 Long term (current) use of opiate analgesic; Z79.899 Other long term (current) drug therapy
CPT/HCPCS: 36415; 74176; 80053; 81001; 85025; 96374; 96375; 99284; J2270; J2405; J7030

== ENCOUNTER 2019-06-22 15:22 | Emergency (ER) | payer MEDICAID ==
[~2019-06-22] VITALS: Ht 165.1 cm; Wt 98.0 kg
[~2019-06-22 15:22] MED LIST changes: +MORP1TAB14 PO; -MORP60TA25 PO
[2019-06-22 15:44] VITALS: BP 119/53
[2019-06-22] MEDS ORDERED: cefTRIAXone SOD 1,000 MG VL IM ONE (19:30)
[2019-06-22] MEDS ORDERED: LIDOCAINE 1% HCL (LOCAL ANESTH.) INJ 20ML MDV ID ONE (20:15)
== END 2019-06-22 20:26 | disposition home or self-care (01) ==
LOC: ER 15:22
DX: Z43.1 Encounter for attention to gastrostomy (principal); F17.210 Nicotine dependence, cigarettes, uncomplicated; J45.909 Unspecified asthma, uncomplicated; E78.5 Hyperlipidemia, unspecified; Z90.710 Acquired absence of both cervix and uterus; Z88.0 Allergy status to penicillin; Z88.2 Allergy status to sulfonamides; Z79.899 Other long term (current) drug therapy
CPT/HCPCS: 96372; 99283; J0696; J2001

== ENCOUNTER 2019-07-05 16:18 | Emergency (ER) | payer MEDICAID ==
[~2019-07-05] VITALS: Ht 165.1 cm; Wt 98.9 kg
[2019-07-05 16:30] VITALS: BP 107/63
== END 2019-07-05 17:33 | disposition home or self-care (01) ==
LOC: ER 16:18
DX: H66.92 Otitis media, unspecified, left ear (principal); F41.9 Anxiety disorder, unspecified; F17.210 Nicotine dependence, cigarettes, uncomplicated; J45.909 Unspecified asthma, uncomplicated; E78.5 Hyperlipidemia, unspecified; Z90.710 Acquired absence of both cervix and uterus; Z88.0 Allergy status to penicillin; Z88.2 Allergy status to sulfonamides; Z79.899 Other long term (current) drug therapy

== ENCOUNTER 2019-08-22 18:00 | Emergency (ER) | payer MEDICAID ==
[~2019-08-22] VITALS: Ht 165.1 cm; Wt 102.1 kg
[2019-08-22] MEDS ORDERED: ONDANSETRON HCL 4 MG/2 ML VIAL IV ONE (22:00)
[2019-08-22] MEDS ORDERED: diphenhdrAMINE HCL 50 MG/1 ML VL IV ONE (22:00)
[2019-08-22] MEDS ORDERED: MORPHINE SULFATE 4 MG/ML SYR/VIAL IV ONE (22:00)
[2019-08-23] MEDS ORDERED: MORPHINE SULF INJ 2 MG/ML SYRINGE 1ML IM ONE (00:45)
[2019-08-23] MEDS ORDERED: ONDANSETRON HCL 4 MG/2 ML VIAL IV ONE (00:45)
[2019-08-23] MEDS ORDERED: GASTROGRAFIN 30 ML SOL ONE (00:49)
[2019-08-23 03:15] VITALS: BP 105/71
== END 2019-08-23 05:49 | disposition home or self-care (01) ==
LOC: ER 18:19
DX: T85.598A Other mechanical complication of other gastrointestinal prosthetic devices, implants and grafts, initial encounter (principal); J45.909 Unspecified asthma, uncomplicated; E78.5 Hyperlipidemia, unspecified; F17.210 Nicotine dependence, cigarettes, uncomplicated; Z88.0 Allergy status to penicillin; Z88.2 Allergy status to sulfonamides; Z88.8 Allergy status to other drugs, medicaments and biological substances; Z79.899 Other long term (current) drug therapy; Y83.9 Surgical procedure, unspecified as the cause of abnormal reaction of the patient, or of later complication, without mention of misadventure at the time of the procedure; Y92.89 Other specified places as the place of occurrence of the external cause
CPT/HCPCS: 74018; 96372; 96374; 96375; 96376; 99284; J1200; J2270; J2405; Q9963

== ENCOUNTER 2020-05-26 17:25 | Emergency (ER) | payer MEDICAID ==
[~2020-05-26] VITALS: Ht 165.1 cm; Wt 87.5 kg
[~2020-05-26 17:25] MED LIST changes: -FAM20T PO; +FAMO20TA10 PO; -LORA0.5T12; +LORA0.5T20
[2020-05-26] MEDS ORDERED: ONDANSETRON HCL 4 MG/2 ML VIAL IM ONE (18:30)
[2020-05-26] MEDS ORDERED: HYDROmorphone HCL 2 MG/ML VL IM ONE (18:30)
[2020-05-26 23:19] LABS: Basophils # (auto) 0 10 ^3/uL (0-0.2); Basophils % (auto) 0.4 % (0.0-2.0); Eosinophils # (auto) 0.3 10 ^3/uL (0-0.8); Hematocrit 42.2 % (36.0-46.0); Hemoglobin 14.2 g/dL (12.2-16.2); Lymphocytes # (auto) 3.5 10 ^3/uL (0.4-5.4); Lymphocytes % (auto) 34.8 % (10.0-50.0); Mean Corpuscular Hemoglobin 28.1 pg (28.0-32.0); Mean Corpuscular Hgb Conc. 33.7 g/dL (32.0-36.0); Mean Corpuscular Volume 83.4 fL (80.0-100.0); Monocytes # (auto) 0.8 10 ^3/uL (0-1.3); Monocytes % (auto) 7.6 % (0.0-12.0); Neutrophils # (auto) 5.4 10 ^3/uL (1.6-8.6); Neutrophils % (auto) 54.2 % (37.0-80.0); Nucleated Red Blood Cells % 0.1 %; Platelet Count (auto) 284 10^3/uL (140-450); Red Blood Cells 5.06 10^6/uL (4.0-5.20); Red Cell Distribution Width 15.4 % (11.8-14.3)
[2020-05-26 23:27] LABS: BUN/Creatinine Ratio 17.1; Potassium 3.8 mmol/L (3.5-5.1)
[2020-05-27 01:00] VITALS: BP 109/74
== END 2020-05-27 01:10 | disposition home or self-care (01) ==
LOC: ER 17:25
DX: K94.23 Gastrostomy malfunction (principal); R10.12 Left upper quadrant pain; R11.0 Nausea; F17.210 Nicotine dependence, cigarettes, uncomplicated; J45.909 Unspecified asthma, uncomplicated; E78.00 Pure hypercholesterolemia, unspecified; F20.9 Schizophrenia, unspecified; G35 Multiple sclerosis; Z90.89 Acquired absence of other organs; Z90.710 Acquired absence of both cervix and uterus; Z79.899 Other long term (current) drug therapy; Z88.0 Allergy status to penicillin; Z88.2 Allergy status to sulfonamides; Z88.8 Allergy status to other drugs, medicaments and biological substances
CPT/HCPCS: 36415; 74176; 80048; 85025; 96372; 99284; J1170; J2405

== ENCOUNTER 2021-01-04 13:04 | Emergency (ER) | payer MEDICAID ==
[~2021-01-04] VITALS: Ht 165.1 cm; Wt 80.7 kg
[~2021-01-04 13:04] MED LIST changes: -CITA-30 PO; +CITA20TA9 PO
[2021-01-04] MEDS ORDERED: MORPHINE SULFATE 4 MG/ML SYR/VIAL IV ONE (20:15)
[2021-01-04] MEDS ORDERED: ONDANSETRON HCL 4 MG/2 ML VIAL IV ONE (20:15)
[2021-01-04] MEDS ORDERED: SODIUM CHLORIDE 0.9% 500 ML IV ONE (20:15)
[2021-01-04 20:29] LABS: Basophils # (auto) 0 10 ^3/uL (0-0.2); Basophils % (auto) 0.3 % (0.0-2.0); Eosinophils # (auto) 0.2 10 ^3/uL (0-0.8); Eosinophils % (auto) 2.4 % (0.0-7.0); Hematocrit 36.4 % (36.0-46.0); Hemoglobin 12.7 g/dL (12.2-16.2); Lymphocytes # (auto) 2.6 10 ^3/uL (0.4-5.4); Lymphocytes % (auto) 26.1 % (10.0-50.0); Mean Corpuscular Hemoglobin 29.5 pg (28.0-32.0); Mean Corpuscular Volume 84.2 fL (80.0-100.0); Monocytes # (auto) 0.5 10 ^3/uL (0-1.3); Monocytes % (auto) 4.7 % (0.0-12.0); Neutrophils # (auto) 6.7 10 ^3/uL (1.6-8.6); Neutrophils % (auto) 66.5 % (37.0-80.0); Red Blood Cells 4.32 10^6/uL (4.0-5.20); Red Cell Distribution Width 14.5 % (11.8-14.3); White Blood Cell 10.1 10^3/uL (4.4-10.8)
[2021-01-04 20:47] LABS: Albumin 3.6 g/dL (3.4-5.0); Calcium 8.9 mg/dL (8.5-10.1)
[2021-01-04 20:51] LABS: BUN/Creatinine Ratio 16.7; Bilirubin, Total 0.4 mg/dL (0.2-1.0); Total Protein 7.1 g/dL (6.4-8.2)
[2021-01-04] MEDS ORDERED: LIDOCAINE HCL 2% TOP JELLY 5ML TOP ONE (23:55)
[2021-01-04] MEDS ORDERED: HYDROmorphone HCL 2 MG/ML VL ONE (23:55)
[2021-01-05] MEDS ORDERED: ONDANSETRON HCL 4 MG/2 ML VIAL ONE (00:28)
[2021-01-05] MEDS ORDERED: HYDROmorphone HCL 2 MG/ML VL ONE (01:54)
[2021-01-05 04:07] VITALS: BP 101/67
== END 2021-01-05 05:37 | disposition home or self-care (01) ==
LOC: ER 13:04
DX: K94.23 Gastrostomy malfunction (principal); F41.9 Anxiety disorder, unspecified; E78.5 Hyperlipidemia, unspecified; F20.9 Schizophrenia, unspecified; J45.909 Unspecified asthma, uncomplicated; G40.909 Epilepsy, unspecified, not intractable, without status epilepticus; F17.210 Nicotine dependence, cigarettes, uncomplicated; Z88.2 Allergy status to sulfonamides; Z88.0 Allergy status to penicillin; Z88.8 Allergy status to other drugs, medicaments and biological substances; Z88.9 Allergy status to unspecified drugs, medicaments and biological substances; Z79.899 Other long term (current) drug therapy; Z90.89 Acquired absence of other organs; Z90.710 Acquired absence of both cervix and uterus
CPT/HCPCS: 36415; 74176; 80053; 85025; 85049; 96361; 96374; 96375; 99285; J1170; J2270; J2405

== ENCOUNTER 2021-03-28 11:02 | Emergency (ER) | payer MEDICAID ==
[~2021-03-28] VITALS: Ht 165.1 cm; Wt 78.0 kg
[2021-03-28 13:20] VITALS: BP 90/39
[2021-03-28] MEDS ORDERED: diphenhdrAMINE HCL 12.5 MG/5 ML UD PO ONE (13:45)
== END 2021-03-28 14:31 | disposition home or self-care (01) ==
LOC: ER 11:02
DX: T78.40XA Allergy, unspecified, initial encounter (principal); Z93.1 Gastrostomy status; X58.XXXA Exposure to other specified factors, initial encounter
CPT/HCPCS: 71045; 74176

== ENCOUNTER 2021-04-22 16:12 | Emergency (ER) | payer MEDICAID ==
[~2021-04-22] VITALS: Ht 165.1 cm; Wt 80.7 kg
[2021-04-22 16:31] VITALS: BP 157/92
[2021-04-22] MEDS ORDERED: METOCLOPRAMIDE HCL 5MG/ml INJ 2ml VIAL IV ONE (23:30)
[2021-04-22] MEDS ORDERED: HYDROmorphone HCL 2 MG/ML VL IV ONE (23:30)
[2021-04-22] MEDS ORDERED: SODIUM CHLORIDE 0.9% 1,000 ML IV ONE (23:30)
[2021-04-23 00:14] LABS: Basophils # (auto) 0.1 10 ^3/uL (0-0.2); Basophils % (auto) 0.6 % (0.0-2.0); Eosinophils # (auto) 0.3 10 ^3/uL (0-0.8); Eosinophils % (auto) 2.6 % (0.0-7.0); Hematocrit 44.5 % (36.0-46.0); Hemoglobin 14.7 g/dL (12.2-16.2); Lymphocytes % (auto) 34.4 % (10.0-50.0); Mean Corpuscular Hemoglobin 28.8 pg (28.0-32.0); Mean Corpuscular Hgb Conc. 33.1 g/dL (32.0-36.0); Monocytes # (auto) 0.6 10 ^3/uL (0-1.3); Monocytes % (auto) 5.1 % (0.0-12.0); Neutrophils # (auto) 6.6 10 ^3/uL (1.6-8.6); Neutrophils % (auto) 57.3 % (37.0-80.0); Nucleated Red Blood Cells % 0.1 %; Red Blood Cells 5.11 10^6/uL (4.0-5.20); Red Cell Distribution Width 13.9 % (11.8-14.3); White Blood Cell 11.6 10^3/uL (4.4-10.8)
[2021-04-23 00:31] LABS: Albumin 3.5 g/dL (3.4-5.0); BUN/Creatinine Ratio 17.1; Calcium 9.4 mg/dL (8.5-10.1)
[2021-04-23 00:34] LABS: Bilirubin, Total 0.1 mg/dL (0.2-1.0); Total Protein 7.6 g/dL (6.4-8.2)
[2021-04-23] MEDS ORDERED: IOHEXOL 300 MG/ML 100ML BOTTLE IJ ONE (00:50)
== END 2021-04-23 04:57 | disposition left against medical advice (07) ==
LOC: ER 16:12
DX: T85.598A Other mechanical complication of other gastrointestinal prosthetic devices, implants and grafts, initial encounter (principal); R10.84 Generalized abdominal pain; J45.909 Unspecified asthma, uncomplicated; E78.5 Hyperlipidemia, unspecified; F17.210 Nicotine dependence, cigarettes, uncomplicated; Z90.49 Acquired absence of other specified parts of digestive tract; Z90.710 Acquired absence of both cervix and uterus; Z79.899 Other long term (current) drug therapy; Z88.0 Allergy status to penicillin; Z88.2 Allergy status to sulfonamides; Z88.8 Allergy status to other drugs, medicaments and biological substances
CPT/HCPCS: 36415; 74177; 80053; 82150; 83605; 83690; 85025; 96361; 96374; 96375; 99285; J1170; J2765; J7030; Q9967

== ENCOUNTER 2021-05-04 15:05 | Inpatient (IN) | payer MEDICAID ==
[~2021-05-04] VITALS: Ht 165.1 cm; Wt 83.5 kg
[2021-05-04] MEDS ORDERED: ONDANSETRON HCL 4 MG/2 ML VIAL IV ONE (16:00)
[2021-05-04] MEDS ORDERED: SODIUM CHLORIDE 0.9% 1,000 ML IV ONE (16:00)
[2021-05-04] MEDS ORDERED: HYDROmorphone HCL 2 MG/ML VL IV ONE (16:00)
[2021-05-04 16:44] LABS: Basophils # (auto) 0.1 10 ^3/uL (0-0.2); Basophils % (auto) 0.7 % (0.0-2.0); Eosinophils # (auto) 0.2 10 ^3/uL (0-0.8); Eosinophils % (auto) 2.2 % (0.0-7.0); Hematocrit 41.9 % (36.0-46.0); Hemoglobin 14.3 g/dL (12.2-16.2); Lymphocytes # (auto) 2.6 10 ^3/uL (0.4-5.4); Lymphocytes % (auto) 33.6 % (10.0-50.0); Mean Corpuscular Hemoglobin 29.1 pg (28.0-32.0); Mean Corpuscular Volume 85.7 fL (80.0-100.0); Monocytes # (auto) 0.3 10 ^3/uL (0-1.3); Monocytes % (auto) 4.4 % (0.0-12.0); Neutrophils # (auto) 4.6 10 ^3/uL (1.6-8.6); Neutrophils % (auto) 59.1 % (37.0-80.0); Red Blood Cells 4.89 10^6/uL (4.0-5.20); Red Cell Distribution Width 13.8 % (11.8-14.3); White Blood Cell 7.8 10^3/uL (4.4-10.8)
[2021-05-04 16:56] LABS: Urine Amorphous Crystal FEW /hpf (None Seen); Urine Bacteria NONE SEEN /hpf (None Seen); Urine Blood Negative /uL (Negative); Urine Budding Yeast OCCASIONAL /hpf (None Seen); Urine Specific Gravity 1.017 (1.001-1.035); Urine WBC 8 /hpf (0 - 5)
[2021-05-04 18:14] LABS: Albumin 3.4 g/dL (3.4-5.0); BUN/Creatinine Ratio 26.9; Calcium 9.6 mg/dL (8.5-10.1); Potassium 4.2 mmol/L (3.5-5.1)
[2021-05-04 18:16] LABS: Bilirubin, Total 0.2 mg/dL (0.2-1.0); Total Protein 7.3 g/dL (6.4-8.2)
[2021-05-05] MEDS ORDERED: ALBUTEROL SULF 2.5 MG/0.5ML(0.5%) NEB SOLN NEB PRN (00:15)
[2021-05-05] MEDS ORDERED: ACETAMINOPHEN 325 MG TAB PO PRN (00:15)
[2021-05-05 02:06] VITALS: BP 112/70
[2021-05-05] MEDS: ONDANSETRON HCL 4 MG/2 ML VIAL IV PRN ×3 (04:03→17:02)
[2021-05-05] MEDS: OXYCODONE W/ ACETAMINOPHEN 5/325MG TABLET PO PRN ×2 (04:04→16:09)
[2021-05-05] MEDS ORDERED: MORPHINE SULFATE INJECTION 2 MG/ML SYRG ONE (05:07)
[2021-05-05] MEDS: MORPHINE SULFATE INJECTION 2 MG/ML SYRG IV PRN ×3 (05:08→17:02)
[2021-05-05] MEDS: GABAPENTIN 300 MG CAP PO SCH ×2 (05:13→14:52)
[2021-05-05] MEDS: CITALOPRAM HYDROBR 20 MG TAB PO SCH ×2 (10:59→11:05)
[2021-05-05] MEDS ORDERED: LORazepam 2MG/ML-1ML VIAL IV ONE (12:15)
[2021-05-05 12:53] VITALS: BP 136/68
[2021-05-05] MEDS ORDERED: ASPI81TA10 PO (15:28)
[2021-05-05 17:04] VITALS: BP 119/81
[2021-05-05] MEDS ORDERED: OXYCODONE W/ ACETAMINOPHEN 5/325MG TABLET PO ONE (20:00)
[2021-05-05 20:15] VITALS: BP 127/74
[2021-05-05] MEDS ORDERED: ATORVASTATIN 20 MG TAB PO SCH (22:00)
== END 2021-05-05 21:02 | disposition home or self-care (01) | DRG 47 ==
LOC: ER 15:05 → TELE 05-05 00:05 → TELE-WESTW 05-05 09:12
PROVIDERS: ADMIT Internal Medicine; ATTEND Internal Medicine
DX: G45.9 Transient cerebral ischemic attack, unspecified (principal); D33.3 Benign neoplasm of cranial nerves; E78.5 Hyperlipidemia, unspecified; F20.9 Schizophrenia, unspecified; F31.9 Bipolar disorder, unspecified; F41.9 Anxiety disorder, unspecified; G35 Multiple sclerosis; G40.909 Epilepsy, unspecified, not intractable, without status epilepticus; M54.50 Low back pain, unspecified; Z20.822 Contact with and (suspected) exposure to COVID-19; G89.4 Chronic pain syndrome; J45.909 Unspecified asthma, uncomplicated; Z88.0 Allergy status to penicillin; Z88.2 Allergy status to sulfonamides; Z88.8 Allergy status to other drugs, medicaments and biological substances; Z79.82 Long term (current) use of aspirin; Z81.8 Family history of other mental and behavioral disorders; Z82.49 Family history of ischemic heart disease and other diseases of the circulatory system; Z83.3 Family history of diabetes mellitus; Z90.710 Acquired absence of both cervix and uterus; Z91.410 Personal history of adult physical and sexual abuse
CPT/HCPCS: 36415; 70450; 70551; 71045; 80053; 81001; 84484; 85025; 87426; 93306; 96361; 96374; 96375; G0378; J2405

== ENCOUNTER 2021-09-21 00:48 | Emergency (ER) | payer MEDICAID ==
[~2021-09-21] VITALS: Ht 167.6 cm; Wt 81.6 kg
[~2021-09-21 00:48] MED LIST changes: +AMOX500T86 PO; +ASPI81TA10 PO; -BACL10TA PO; -BUTA-91 PO; -CLIN300C8 PO; -CLON0.5T10 PO; -FLUC200T50 PO; -HYDR-5028 PO; -LORA0.5T20; -LURA40TA PO; -MET10T PO; -MORP1TAB14 PO; +ONDA-144 PO; -TEMA30CA PO
[2021-09-21 03:02] LABS: Basophils # (auto) 0 10 ^3/uL (0-0.2); Basophils % (auto) 0.2 % (0.0-2.0); Eosinophils # (auto) 0 10 ^3/uL (0-0.8); Eosinophils % (auto) 0.1 % (0.0-7.0); Hematocrit 41.6 % (36.0-46.0); Hemoglobin 13.8 g/dL (12.2-16.2); Lymphocytes # (auto) 2.2 10 ^3/uL (0.4-5.4); Lymphocytes % (auto) 14.7 % (10.0-50.0); Mean Corpuscular Hemoglobin 28.3 pg (28.0-32.0); Mean Corpuscular Hgb Conc. 33.2 g/dL (32.0-36.0); Mean Corpuscular Volume 85.1 fL (80.0-100.0); Monocytes # (auto) 0.9 10 ^3/uL (0-1.3); Monocytes % (auto) 6.2 % (0.0-12.0); Neutrophils # (auto) 11.8 10 ^3/uL (1.6-8.6); Neutrophils % (auto) 78.8 % (37.0-80.0); Red Blood Cells 4.88 10^6/uL (4.0-5.20); Red Cell Distribution Width 14.7 % (11.8-14.3)
[2021-09-21 03:10] LABS: Alanine Aminotransferase 91 U/L (13-56); Albumin 3.1 g/dL (3.4-5.0); Anion Gap 9 (5-15); Aspartate Aminotransferase 10 U/L (15-37); BUN/Creatinine Ratio 49.3; Blood Urea Nitrogen 33 mg/dL (7-18); Calcium 9.1 mg/dL (8.5-10.1); Carbon Dioxide 23 mmol/L (21-32); Chloride 106 mmol/L (98-107); GFR African American 127 mL/min; GFR Non-African American 105 mL/min; Glucose 102 mg/dL (74-106); Potassium 3.9 mmol/L (3.5-5.1); Sodium 138 mmol/L (136-145)
[2021-09-21 03:14] LABS: Alkaline Phosphatase 60 U/L (45-117); Bilirubin, Total 0.2 mg/dL (0.2-1.0); Total Protein 6.3 g/dL (6.4-8.2)
[2021-09-21] MEDS ORDERED: IPRATROPIUM BROM 0.5 MG/2.5ML INH SOL NEB ONE (03:45)
[2021-09-21] MEDS ORDERED: KETOROLAC TROMETH 30 MG/ML 1ML VIAL IM ONE (03:45)
[2021-09-21] MEDS ORDERED: ALBUTEROL SULF 2.5 MG/0.5ML(0.5%) NEB SOLN NEB ONE (03:45)
[2021-09-21 05:00] VITALS: BP 125/75
== END 2021-09-21 05:26 | disposition home or self-care (01) ==
LOC: EDBD 00:48 → ER 00:50
DX: J45.909 Unspecified asthma, uncomplicated (principal); E78.5 Hyperlipidemia, unspecified; Z90.49 Acquired absence of other specified parts of digestive tract; Z90.710 Acquired absence of both cervix and uterus; Z79.82 Long term (current) use of aspirin; Z79.2 Long term (current) use of antibiotics; Z79.899 Other long term (current) drug therapy; Z88.0 Allergy status to penicillin; Z88.2 Allergy status to sulfonamides; Z88.8 Allergy status to other drugs, medicaments and biological substances
CPT/HCPCS: 36415; 71046; 80053; 84484; 84702; 85025; 93005; 94640; 96372; 99285; J1885; J7644

== ENCOUNTER 2021-10-15 15:44 | Emergency (ER) | payer MEDICAID ==
[~2021-10-15] VITALS: Ht 165.1 cm; Wt 72.6 kg
[2021-10-15 18:28] LABS: Basophils # (auto) 0.1 10 ^3/uL (0-0.2); Basophils % (auto) 0.8 % (0.0-2.0); Eosinophils # (auto) 0 10 ^3/uL (0-0.8); Eosinophils % (auto) 0.3 % (0.0-7.0); Hematocrit 36.7 % (36.0-46.0); Hemoglobin 12.4 g/dL (12.2-16.2); Lymphocytes # (auto) 2.5 10 ^3/uL (0.4-5.4); Lymphocytes % (auto) 28.3 % (10.0-50.0); Mean Corpuscular Hemoglobin 28.8 pg (28.0-32.0); Mean Corpuscular Hgb Conc. 33.7 g/dL (32.0-36.0); Mean Corpuscular Volume 85.4 fL (80.0-100.0); Monocytes # (auto) 0.6 10 ^3/uL (0-1.3); Monocytes % (auto) 6.7 % (0.0-12.0); Neutrophils # (auto) 5.6 10 ^3/uL (1.6-8.6); Neutrophils % (auto) 63.9 % (37.0-80.0); Red Blood Cells 4.29 10^6/uL (4.0-5.20); Red Cell Distribution Width 15.7 % (11.8-14.3); White Blood Cell 8.7 10^3/uL (4.4-10.8)
[2021-10-15 18:48] LABS: Albumin 2.9 g/dL (3.4-5.0); CRP High Sensitivity 0.3 mg/dL (< 0.3); Calcium 8.8 mg/dL (8.5-10.1); Magnesium 2.9 mg/dL (1.6-2.6)
[2021-10-15 18:50] LABS: BUN/Creatinine Ratio 23.4; Bilirubin, Total 0.1 mg/dL (0.2-1.0); Total Protein 6.8 g/dL (6.4-8.2)
[2021-10-15 19:50] LABS: Urine WBC None Seen /hpf (0 - 5)
[2021-10-15 20:17] LABS: Urine Bacteria FEW /hpf (None Seen); Urine Blood Negative /uL (Negative); Urine Specific Gravity 1.029 (1.001-1.035)
[2021-10-15] MEDS ORDERED: HYDROcodone-ACET 5/325MG TAB PO ONE (22:30)
[2021-10-16] MEDS ORDERED: HYDROmorphone HCL 2 MG/ML VL IV ONE ×3 (03:15→09:15)
[2021-10-16] MEDS ORDERED: ONDANSETRON HCL 4 MG/2 ML VIAL IV ONE (09:15)
[2021-10-16] MEDS ORDERED: FUROSEMIDE 40 MG/4 ML VIAL IV ONE (09:15)
[2021-10-16] MEDS ORDERED: SPIRONOLACTONE 25 MG TAB PO ONE (09:15)
[2021-10-16 11:33] VITALS: BP 119/64
== END 2021-10-16 12:20 | disposition short-term general hospital (02) ==
LOC: ER 15:56
DX: R60.0 Localized edema (principal); F19.230 Other psychoactive substance dependence with withdrawal, uncomplicated; J45.909 Unspecified asthma, uncomplicated; E78.5 Hyperlipidemia, unspecified; Z90.710 Acquired absence of both cervix and uterus; Z88.0 Allergy status to penicillin; Z88.8 Allergy status to other drugs, medicaments and biological substances; Z20.822 Contact with and (suspected) exposure to COVID-19
CPT/HCPCS: 36415; 70450; 71045; 80053; 81001; 83735; 83880; 84484; 85025; 86141; 93970; 96374; 96375; 96376; J2405

== ENCOUNTER 2021-11-19 21:05 | Emergency (ER) | payer MEDICAID ==
[~2021-11-19] VITALS: Ht 165.1 cm; Wt 81.6 kg
[2021-11-19 23:43] VITALS: BP 124/78
[2021-11-23] MEDS ORDERED: APIX5TAB4 PO (13:00)
== END 2021-11-19 23:45 | disposition home or self-care (01) ==
LOC: ER 21:05
DX: I80.8 Phlebitis and thrombophlebitis of other sites (principal); J45.909 Unspecified asthma, uncomplicated; E78.5 Hyperlipidemia, unspecified; Z90.49 Acquired absence of other specified parts of digestive tract; Z90.710 Acquired absence of both cervix and uterus; Z79.82 Long term (current) use of aspirin; Z79.2 Long term (current) use of antibiotics; Z79.899 Other long term (current) drug therapy; Z88.0 Allergy status to penicillin; Z88.2 Allergy status to sulfonamides; Z88.8 Allergy status to other drugs, medicaments and biological substances

== ENCOUNTER 2021-11-20 20:13 | Inpatient (IN) | payer MEDICAID ==
[~2021-11-20] VITALS: Ht 165.1 cm; Wt 99.2 kg
[2021-11-21] MEDS ORDERED: MORPHINE SULFATE INJ 2 MG/ml SYRG IV ONE ×3 (01:30→05:30)
[2021-11-21] MEDS ORDERED: ENOXAPARIN SOD 100 MG/1 ML SYRINGE SC ONE (01:30)
[2021-11-21 02:26] LABS: Albumin 3.1 g/dL (3.4-5.0); BUN/Creatinine Ratio 28.6; Calcium 9.2 mg/dL (8.5-10.1)
[2021-11-21 02:28] LABS: Basophils # (auto) 0 10 ^3/uL (0-0.2); Basophils % (auto) 0.6 % (0.0-2.0); Eosinophils # (auto) 0.3 10 ^3/uL (0-0.8); Eosinophils % (auto) 3.4 % (0.0-7.0); Hematocrit 35.9 % (36.0-46.0); Hemoglobin 12.1 g/dL (12.2-16.2); Lymphocytes # (auto) 3.2 10 ^3/uL (0.4-5.4); Lymphocytes % (auto) 38.7 % (10.0-50.0); Mean Corpuscular Hgb Conc. 33.7 g/dL (32.0-36.0); Monocytes # (auto) 0.8 10 ^3/uL (0-1.3); Monocytes % (auto) 9.9 % (0.0-12.0); Neutrophils # (auto) 3.9 10 ^3/uL (1.6-8.6); Neutrophils % (auto) 47.4 % (37.0-80.0); Red Blood Cells 4.18 10^6/uL (4.0-5.20); Red Cell Distribution Width 14.6 % (11.8-14.3); White Blood Cell 8.2 10^3/uL (4.4-10.8)
[2021-11-21 02:29] LABS: Bilirubin, Total 0.2 mg/dL (0.2-1.0); Total Protein 6.6 g/dL (6.4-8.2)
[2021-11-21 02:49] LABS: INR 0.95 (0.9-1.15); Partial Thromboplastin Time 26.9 sec (23.6-33.0)
[2021-11-21] MEDS ORDERED: ONDANSETRON HCL 4 MG/2 ML VIAL IV ONE (03:30)
[2021-11-21] MEDS ORDERED: HYDROmorphone HCL 2 MG/ML VL/or syr IV ONE ×2 (06:45)
[2021-11-21] MEDS ORDERED: NITROGLYCERIN 0.4 MG SL TAB SL PRN (09:00)
[2021-11-21] MEDS ORDERED: MORPHINE SULFATE INJ 2 MG/ml SYRG IV PRN (09:00)
[2021-11-21] MEDS ORDERED: NAPROXEN 500 MG TAB PO PRN (09:00)
[2021-11-21] MEDS: OXYCODONE W/ ACETAMINOPHEN 5/325MG TABLET PO PRN ×3 (11:10→23:05)
[2021-11-21 11:21] LABS: Urine Bacteria NONE SEEN /hpf (None Seen); Urine Blood Negative /uL (Negative); Urine Budding Yeast OCCASIONAL /hpf (None Seen); Urine Specific Gravity 1.023 (1.001-1.035); Urine WBC 1 /hpf (0 - 5)
[2021-11-21 13:00] VITALS: BP 136/74
[2021-11-21] MEDS: ENOXAPARIN SOD 80 MG/0.8ML SYRINGE SC SCH (14:18)
[2021-11-21] MEDS: GABAPENTIN 300 MG CAP PO SCH ×2 (14:18→21:43)
[2021-11-21 17:00] VITALS: BP 107/57
[2021-11-21] MEDS ORDERED: HYDR-5028 PO (17:57)
[2021-11-21] MEDS ORDERED: TRAZ50TA2 PO (17:57)
[2021-11-21] MEDS ORDERED: OMEP20TA PO (17:57)
[2021-11-21] MEDS ORDERED: BACL10TA PO (17:57)
[2021-11-21] MEDS ORDERED: MAGN400T40 PO (17:57)
[2021-11-21] MEDS ORDERED: PRAV20TA3 PO (17:57)
[2021-11-21] MEDS ORDERED: IBUP-1678 PO (17:57)
[2021-11-21] MEDS ORDERED: POTA10TA51 PO (17:57)
[2021-11-21] MEDS ORDERED: FURO20TA3 PO (17:57)
[2021-11-21] MEDS ORDERED: NALO1TAB PO (18:02)
[2021-11-21] MEDS ORDERED: BISA-13 PO (18:02)
[2021-11-21] MEDS: FAMOTIDINE 20 MG TAB PO SCH (21:43)
[2021-11-21] MEDS: levETIRAcetam 500 MG TAB PO SCH (21:43)
[2021-11-21] MEDS ORDERED: DOCUSATE SOD 100 MG CAP PO PRN (21:45)
[2021-11-21] MEDS ORDERED: IPRATROPIUM BROM 0.5 MG/2.5ML INH SOL NEB ONE (21:45)
[2021-11-21] MEDS ORDERED: hydrALAZINE HCL 20 MG/ML VL IV PRN (21:45)
[2021-11-21] MEDS ORDERED: PANTOPRAZOLE 40 MG/10 ML VIAL INJ IV ONE (21:45)
[2021-11-21 22:00] VITALS: BP 108/58
[2021-11-21] MEDS: IPRATROPIUM BROM 0.5 MG/2.5ML INH SOL NEB SCH (22:00)
[2021-11-21] MEDS: AZITHROMYCIN 500MG/ 250ML 250 ML IV SCH (23:21)
[2021-11-21] MEDS: ATORVASTATIN 20 MG TAB PO SCH (23:21)
[2021-11-21] MEDS: methylPREDNISolone SOD SUCC 40 MG/ML VL IV SCH (23:21)
[2021-11-21] MEDS ORDERED: KETOROLAC TROMETH 30 MG/ML 1ML VIAL IV ONE (23:45)
[2021-11-22] MEDS: METOCLOPRAMIDE HCL 5MG/ml INJ 2ml VIAL IV PRN ×2 (01:39→20:26)
[2021-11-22] MEDS: BUDESONIDE (INHALATION) 0.5 MG/2 ML NEB NEB SCH ×3 (02:40→19:02)
[2021-11-22] MEDS: IPRATROPIUM BROM 0.5 MG/2.5ML INH SOL NEB SCH ×7 (02:41→22:13)
[2021-11-22] MEDS: ALBUTEROL SULF 2.5 MG/0.5ML(0.5%) NEB SOLN NEB PRN ×3 (02:41→22:13)
[2021-11-22] MEDS: MORPHINE SULFATE INJ 2 MG/ml SYRG IV PRN ×4 (04:38→23:06)
[2021-11-22 05:00] VITALS: BP 103/55
[2021-11-22] MEDS: methylPREDNISolone SOD SUCC 40 MG/ML VL IV SCH ×3 (06:18→22:04)
[2021-11-22] MEDS: GABAPENTIN 300 MG CAP PO SCH ×3 (06:18→22:04)
[2021-11-22 09:00] VITALS: BP 111/78
[2021-11-22] MEDS: FAMOTIDINE 20 MG TAB PO SCH ×2 (09:45→22:04)
[2021-11-22] MEDS: ASPirin 81 mg TAB PO SCH (09:45)
[2021-11-22] MEDS: PANTOPRAZOLE 40 MG/10 ML VIAL INJ IV SCH (09:46)
[2021-11-22] MEDS: ASPirin-EC 81 mg tab PO SCH (09:46)
[2021-11-22] MEDS: ENOXAPARIN SOD 80 MG/0.8ML SYRINGE SC SCH ×3 (09:47→23:05)
[2021-11-22] MEDS: levETIRAcetam 500 MG TAB PO SCH ×2 (09:51→22:05)
[2021-11-22] MEDS ORDERED: CITALOPRAM HYDROBR 20 MG TAB PO SCH (10:00)
[2021-11-22 12:27] LABS: Basophils # (auto) 0 10 ^3/uL (0-0.2); Basophils % (auto) 0.5 % (0.0-2.0); Eosinophils # (auto) 0 10 ^3/uL (0-0.8); Eosinophils % (auto) 0.1 % (0.0-7.0); Hematocrit 38.3 % (36.0-46.0); Hemoglobin 12.9 g/dL (12.2-16.2); Lymphocytes # (auto) 0.9 10 ^3/uL (0.4-5.4); Lymphocytes % (auto) 12.2 % (10.0-50.0); Mean Corpuscular Hemoglobin 28.9 pg (28.0-32.0); Mean Corpuscular Hgb Conc. 33.7 g/dL (32.0-36.0); Mean Corpuscular Volume 85.6 fL (80.0-100.0); Monocytes # (auto) 0 10 ^3/uL (0-1.3); Monocytes % (auto) 0.5 % (0.0-12.0); Neutrophils # (auto) 6.5 10 ^3/uL (1.6-8.6); Neutrophils % (auto) 86.7 % (37.0-80.0); Red Blood Cells 4.48 10^6/uL (4.0-5.20); Red Cell Distribution Width 14.8 % (11.8-14.3); White Blood Cell 7.5 10^3/uL (4.4-10.8)
[2021-11-22 12:41] LABS: INR 0.95 (0.9-1.15); Partial Thromboplastin Time 31.2 sec (23.6-33.0)
[2021-11-22 12:53] LABS: Magnesium 2.5 mg/dL (1.6-2.6); Potassium 4.2 mmol/L (3.5-5.1); Uric Acid 5.7 mg/dL (2.6-6.0)
[2021-11-22 12:59] LABS: Albumin 3.2 g/dL (3.4-5.0); BUN/Creatinine Ratio 23.4; Bilirubin, Total 0.2 mg/dL (0.2-1.0); CRP High Sensitivity 0.15 mg/dL (< 0.3); Phosphorus 1.7 mg/dL (2.5-4.90); Total Protein 7.3 g/dL (6.4-8.2)
[2021-11-22 13:00] VITALS: BP 113/68
[2021-11-22 15:03] VITALS: BP 113/68
[2021-11-22 16:08] VITALS: BP 113/64
[2021-11-22 22:00] VITALS: BP 124/58
[2021-11-22] MEDS: ATORVASTATIN 20 MG TAB PO SCH (22:05)
[2021-11-22] MEDS: AZITHROMYCIN 500MG/ 250ML 250 ML IV SCH (22:06)
[2021-11-23] MEDS: ONDANSETRON HCL 4 MG/2 ML VIAL IV PRN ×2 (01:16→11:30)
[2021-11-23] MEDS: IPRATROPIUM BROM 0.5 MG/2.5ML INH SOL NEB SCH ×3 (02:00→10:09)
[2021-11-23 05:00] VITALS: BP 127/61
[2021-11-23] MEDS: methylPREDNISolone SOD SUCC 40 MG/ML VL IV SCH (05:06)
[2021-11-23] MEDS: GABAPENTIN 300 MG CAP PO SCH (05:06)
[2021-11-23] MEDS: MORPHINE SULFATE INJ 2 MG/ml SYRG IV PRN ×2 (05:07→11:27)
[2021-11-23] MEDS: METOCLOPRAMIDE HCL 5MG/ml INJ 2ml VIAL IV PRN (06:21)
[2021-11-23 08:30] VITALS: BP 105/63
[2021-11-23] MEDS: ASPirin 81 mg TAB PO SCH (09:34)
[2021-11-23] MEDS: FAMOTIDINE 20 MG TAB PO SCH (09:34)
[2021-11-23] MEDS: ASPirin-EC 81 mg tab PO SCH (09:34)
[2021-11-23] MEDS: PANTOPRAZOLE 40 MG/10 ML VIAL INJ IV SCH (09:34)
[2021-11-23] MEDS: levETIRAcetam 500 MG TAB PO SCH (09:35)
[2021-11-23] MEDS: BUDESONIDE (INHALATION) 0.5 MG/2 ML NEB NEB SCH (10:09)
[2021-11-23] MEDS ORDERED: APIX5TAB4 PO (13:00)
[2021-11-23 13:05] VITALS: BP 105/63
== END 2021-11-23 13:40 | disposition home or self-care (01) | DRG 197 ==
LOC: ER 20:13 → WEST WING 11-21 09:00 → TELE-EAST 11-21 12:08 → EAST 11-21 18:09
PROVIDERS: ADMIT Hospitalist; ATTEND Internal Medicine
DX: I82.611 Acute embolism and thrombosis of superficial veins of right upper extremity (principal); K90.9 Intestinal malabsorption, unspecified; G35 Multiple sclerosis; K31.84 Gastroparesis; D33.3 Benign neoplasm of cranial nerves; E66.01 Morbid (severe) obesity due to excess calories; E78.5 Hyperlipidemia, unspecified; F11.20 Opioid dependence, uncomplicated; F17.200 Nicotine dependence, unspecified, uncomplicated; F20.9 Schizophrenia, unspecified; Z20.822 Contact with and (suspected) exposure to COVID-19; F32.9 Major depressive disorder, single episode, unspecified; G89.4 Chronic pain syndrome; M54.50 Low back pain, unspecified; F41.9 Anxiety disorder, unspecified; G40.909 Epilepsy, unspecified, not intractable, without status epilepticus; Z88.0 Allergy status to penicillin; Z88.2 Allergy status to sulfonamides; Z88.8 Allergy status to other drugs, medicaments and biological substances; Z79.899 Other long term (current) drug therapy; Z80.0 Family history of malignant neoplasm of digestive organs; Z80.6 Family history of leukemia; Z82.49 Family history of ischemic heart disease and other diseases of the circulatory system; Z83.3 Family history of diabetes mellitus; Z90.710 Acquired absence of both cervix and uterus; Z91.19 Patient's noncompliance with other medical treatment and regimen; Z68.36 Body mass index [BMI] 36.0-36.9, adult
CPT/HCPCS: 36415; 36600; 70450; 80053; 80061; 81001; 81025; 82270; 82542; 82550; 82728; 82805; 83615; 83690; 83735; 83880; 84100; 84443; 84484; 84550; 84702; 85025; 85379; 85610; 85652; 85730; 86141; 87040; 87081; 87086; 93005; 93971; 94640; 96372; 96374; 96375; 96376; C9113; G0378; J1885; J2405

== ENCOUNTER 2021-11-28 16:39 | Emergency (ER) | payer MEDICAID ==
[~2021-11-28] VITALS: Ht 165.1 cm; Wt 72.6 kg
[~2021-11-28 16:39] MED LIST changes: +ACETAMINOPHEN 325 MG TAB PO ONE; -AMOX500T86 PO; +APIX5TAB4 PO; -ASPI81TA10 PO; -ATOR10TA52 PO; +BACL10TA PO; +BISA-13 PO; -CITA20TA9 PO; -FAMO20TA10 PO; +FURO20TA3 PO; +HYDR-5028 PO; +IBUP-1678 PO; -LEVE250T18 PO; +MAGN400T40 PO; +NALO1TAB PO; +OMEP20TA PO; +POTA10TA51 PO; +PRAV20TA3 PO; +TRAZ50TA2 PO
[2021-11-28 16:45] VITALS: BP 119/45
[2021-11-28] MEDS ORDERED: OXYCODONE W/ ACETAMINOPHEN 5/325MG TABLET PO ONE (19:30)
== END 2021-11-28 22:03 | disposition home or self-care (01) ==
LOC: ER 16:39
DX: S33.5XXA Sprain of ligaments of lumbar spine, initial encounter (principal); M47.816 Spondylosis without myelopathy or radiculopathy, lumbar region; M25.552 Pain in left hip; M25.551 Pain in right hip; X58.XXXA Exposure to other specified factors, initial encounter; Y93.89 Activity, other specified; Y92.89 Other specified places as the place of occurrence of the external cause; Y99.8 Other external cause status
CPT/HCPCS: 72100; 73502

== ENCOUNTER 2022-01-05 15:53 | Emergency (ER) | payer MEDICAID ==
[~2022-01-05] VITALS: Ht 165.1 cm; Wt 91.6 kg
[~2022-01-05 15:53] MED LIST changes: -ACETAMINOPHEN 325 MG TAB PO ONE
[2022-01-05 18:22] LABS: Basophils # (auto) 0 10 ^3/uL (0-0.2); Eosinophils # (auto) 0.1 10 ^3/uL (0-0.8); Lymphocytes # (auto) 3.2 10 ^3/uL (0.4-5.4)
[2022-01-05 18:25] LABS: Basophils % (auto) 0.3 % (0.0-2.0); Eosinophils % (auto) 1.1 % (0.0-7.0); Hematocrit 42.4 % (36.0-46.0); Lymphocytes % (auto) 29.2 % (10.0-50.0); Mean Corpuscular Hemoglobin 27.3 pg (28.0-32.0); Mean Corpuscular Hgb Conc. 32.9 g/dL (32.0-36.0); Mean Corpuscular Volume 82.9 fL (80.0-100.0); Monocytes # (auto) 0.6 10 ^3/uL (0-1.3); Monocytes % (auto) 5.1 % (0.0-12.0); Neutrophils # (auto) 7.1 10 ^3/uL (1.6-8.6); Neutrophils % (auto) 64.3 % (37.0-80.0); Red Blood Cells 5.11 10^6/uL (4.0-5.20)
[2022-01-05] MEDS ORDERED: HYDROmorphone HCL 2 MG/ML VL/or syr IM ONE ×2 (18:30→21:30)
[2022-01-05 18:39] LABS: Albumin 3.9 g/dL (3.4-5.0); Calcium 10.3 mg/dL (8.5-10.1); Potassium 3.8 mmol/L (3.5-5.1)
[2022-01-05 18:42] LABS: Bilirubin, Total 0.2 mg/dL (0.2-1.0); Total Protein 7.6 g/dL (6.4-8.2)
[2022-01-06] MEDS ORDERED: diphenhdrAMINE HCL 50 MG/1 ML VL IV ONE (00:15)
[2022-01-06] MEDS ORDERED: DexAMETHasone SOD PHOS 10MG/1ML VIAL INJ IV ONE (00:15)
[2022-01-06] MEDS ORDERED: SODIUM CHLORIDE 0.9% 1,000 ML IV ONE (00:30)
[2022-01-06] MEDS ORDERED: ACETAMINOPHEN 325 MG TAB PO ONE (01:00)
[2022-01-06 01:54] VITALS: BP 125/75
[2022-01-06] MEDS ORDERED: ONDANSETRON ODT 4 MG TAB PO ONE (02:30)
== END 2022-01-06 04:00 | disposition home or self-care (01) ==
LOC: ER 15:53
DX: R51.9 Headache, unspecified (principal); J45.909 Unspecified asthma, uncomplicated; E78.5 Hyperlipidemia, unspecified; Z90.49 Acquired absence of other specified parts of digestive tract; Z90.710 Acquired absence of both cervix and uterus
CPT/HCPCS: 36415; 70450; 80053; 80320; 84702; 85025; 96361; 96365; 96372; 96375; 99284; J1100; J1170; J1200; J1953; J7030; J7060; Q0162

== ENCOUNTER 2022-02-09 08:51 | Inpatient (IN) | payer MEDICAID ==
[~2022-02-09] VITALS: Ht 165.1 cm; Wt 94.0 kg
[2022-02-09 10:10] LABS: Basophils # (auto) 0.1 10 ^3/uL (0-0.2); Hemoglobin 12.4 g/dL (12.2-16.2); Lymphocytes # (auto) 2.2 10 ^3/uL (0.4-5.4); Monocytes # (auto) 0.4 10 ^3/uL (0-1.3); Neutrophils % (auto) 67.1 % (37.0-80.0); Red Cell Distribution Width 14.1 % (11.8-14.3)
[2022-02-09 10:14] LABS: Basophils % (auto) 0.6 % (0.0-2.0); Eosinophils # (auto) 0.2 10 ^3/uL (0-0.8); Eosinophils % (auto) 1.8 % (0.0-7.0); Hematocrit 38.6 % (36.0-46.0); Lymphocytes % (auto) 25.8 % (10.0-50.0); Mean Corpuscular Hgb Conc. 32.1 g/dL (32.0-36.0); Monocytes % (auto) 4.7 % (0.0-12.0); Neutrophils # (auto) 5.8 10 ^3/uL (1.6-8.6); Red Blood Cells 4.77 10^6/uL (4.0-5.20); White Blood Cell 8.7 10^3/uL (4.4-10.8)
[2022-02-09 10:26] LABS: Urine Bacteria FEW /hpf (None Seen); Urine Blood Negative /uL (Negative); Urine Specific Gravity 1.027 (1.001-1.035); Urine WBC 3 /hpf (0 - 5)
[2022-02-09 10:31] LABS: Albumin 3.5 g/dL (3.4-5.0); Calcium 9.6 mg/dL (8.5-10.1); Potassium 4.2 mmol/L (3.5-5.1)
[2022-02-09 10:36] LABS: BUN/Creatinine Ratio 21.7; Bilirubin, Total 0.4 mg/dL (0.2-1.0); Total Protein 6.8 g/dL (6.4-8.2)
[2022-02-09] MEDS ORDERED: SODIUM CHLORIDE 0.9% 1,000 ML IV ONE (15:00)
[2022-02-09] MEDS ORDERED: ACETAMINOPHEN 325 MG TAB PO PRN (18:30)
[2022-02-09] MEDS ORDERED: DOCUSATE SOD 100 MG CAP PO PRN (18:30)
[2022-02-09] MEDS ORDERED: DEXTROSE (50%) 50ML SYRG IV PRN (19:00)
[2022-02-09] MEDS ORDERED: APIXABAN 5 MG TAB PO SCH (22:00)
[2022-02-10] VITALS (7 sets, daily range): BP systolic 92–124; BP diastolic 50–76
[2022-02-10] MEDS: ONDANSETRON HCL 4 MG/2 ML VIAL IV PRN ×6 (00:02→21:32)
[2022-02-10] MEDS: MORPHINE SULFATE INJ 2 MG/ml SYRG IV PRN ×5 (00:03→21:30)
[2022-02-10] MEDS: GABAPENTIN 300 MG CAP PO SCH ×4 (00:04→22:19)
[2022-02-10] MEDS: ACCU-CHEK COMFORT CURVE STRIP VI SCH ×5 (00:15→22:19)
[2022-02-10] MEDS: InsuLIN REG 1unit/0.01ml Soln (100units/ml) SC SCH ×5 (00:15→22:00)
[2022-02-10] MEDS: SODIUM CHLORIDE 0.9% 1,000 ML IV SCH ×4 (02:50→19:30)
[2022-02-10 06:53] LABS: Basophils # (auto) 0.1 10 ^3/uL (0-0.2); Basophils % (auto) 1.3 % (0.0-2.0); Eosinophils # (auto) 0.3 10 ^3/uL (0-0.8); Eosinophils % (auto) 4.3 % (0.0-7.0); Hematocrit 35.2 % (36.0-46.0); Hemoglobin 11.3 g/dL (12.2-16.2); Lymphocytes # (auto) 3.3 10 ^3/uL (0.4-5.4); Mean Corpuscular Hemoglobin 26.2 pg (28.0-32.0); Mean Corpuscular Hgb Conc. 32.1 g/dL (32.0-36.0); Mean Corpuscular Volume 81.5 fL (80.0-100.0); Monocytes # (auto) 0.6 10 ^3/uL (0-1.3); Monocytes % (auto) 8.4 % (0.0-12.0); Neutrophils # (auto) 2.4 10 ^3/uL (1.6-8.6); Nucleated Red Blood Cells % 0.1 %; Red Blood Cells 4.32 10^6/uL (4.0-5.20); Red Cell Distribution Width 14.3 % (11.8-14.3); White Blood Cell 6.6 10^3/uL (4.4-10.8)
[2022-02-10 07:02] LABS: Albumin 2.6 g/dL (3.4-5.0); Calcium 8.1 mg/dL (8.5-10.1); Potassium 3.9 mmol/L (3.5-5.1)
[2022-02-10 07:07] LABS: BUN/Creatinine Ratio 28.6; Bilirubin, Total 0.2 mg/dL (0.2-1.0); Total Protein 5.4 g/dL (6.4-8.2)
[2022-02-10] MEDS: levoFLOXacin 500MG 100 ML IV SCH (08:53)
[2022-02-10] MEDS ORDERED: ENOXAPARIN SOD 40 MG/0.4 ML SYRINGE SC SCH (10:00)
[2022-02-10] MEDS: METOCLOPRAMIDE HCL 5MG/ml INJ 2ml VIAL IV SCH ×2 (13:07→22:18)
[2022-02-10] MEDS: HYDROcodone-ACET 5/325MG TAB PO PRN (23:05)
[2022-02-11] MEDS: MORPHINE SULFATE INJ 2 MG/ml SYRG IV PRN ×7 (00:46→23:38)
[2022-02-11] MEDS: ONDANSETRON HCL 4 MG/2 ML VIAL IV PRN ×6 (02:01→23:38)
[2022-02-11] MEDS: HYDROcodone-ACET 5/325MG TAB PO PRN ×4 (03:04→22:06)
[2022-02-11] MEDS: SODIUM CHLORIDE 0.9% 1,000 ML IV SCH ×3 (03:50→20:30)
[2022-02-11 05:00] VITALS: BP 121/61
[2022-02-11] MEDS: GABAPENTIN 300 MG CAP PO SCH ×3 (06:00→22:07)
[2022-02-11] MEDS: METOCLOPRAMIDE HCL 5MG/ml INJ 2ml VIAL IV SCH ×3 (06:30→22:08)
[2022-02-11] MEDS: ACCU-CHEK COMFORT CURVE STRIP VI SCH ×4 (06:31→22:11)
[2022-02-11] MEDS: InsuLIN REG 1unit/0.01ml Soln (100units/ml) SC SCH ×4 (06:31→22:00)
[2022-02-11 09:00] VITALS: BP 116/65
[2022-02-11] MEDS: levoFLOXacin 500MG 100 ML IV SCH (09:36)
[2022-02-11] MEDS ORDERED: ERYTHROMYCIN LACTOBIONATE 250 MG in SODIUM CHL 0.9% 100 ML IV SCH (10:00)
[2022-02-11 13:00] VITALS: BP 157/69
[2022-02-11] MEDS ORDERED: CITA10TA70 PO (15:22)
[2022-02-11] MEDS ORDERED: ARIP10TA29 PO (15:25)
[2022-02-11] MEDS: PANTOPRAZOLE 40 MG/10 ML VIAL INJ IV SCH (16:58)
[2022-02-11] MEDS ORDERED: CITALOPRAM HYDROBR 20 MG TAB PO ONE (17:00)
[2022-02-11 17:15] VITALS: BP 132/73
[2022-02-11 22:12] VITALS: BP 128/75
[2022-02-12] MEDS: HYDROcodone-ACET 5/325MG TAB PO PRN ×5 (02:02→20:46)
[2022-02-12] MEDS: MORPHINE SULFATE INJ 2 MG/ml SYRG IV PRN ×5 (03:35→23:13)
[2022-02-12] MEDS: ONDANSETRON HCL 4 MG/2 ML VIAL IV PRN ×4 (03:35→16:39)
[2022-02-12] MEDS: SODIUM CHLORIDE 0.9% 1,000 ML IV SCH ×3 (05:11→21:30)
[2022-02-12] MEDS: GABAPENTIN 300 MG CAP PO SCH ×3 (06:03→21:56)
[2022-02-12] MEDS: METOCLOPRAMIDE HCL 5MG/ml INJ 2ml VIAL IV SCH ×3 (06:03→21:56)
[2022-02-12] MEDS: InsuLIN REG 1unit/0.01ml Soln (100units/ml) SC SCH ×4 (06:03→22:00)
[2022-02-12] MEDS: ACCU-CHEK COMFORT CURVE STRIP VI SCH ×4 (06:50→21:33)
[2022-02-12 09:00] VITALS: BP 125/70
[2022-02-12] MEDS: PANTOPRAZOLE 40 MG/10 ML VIAL INJ IV SCH (09:57)
[2022-02-12] MEDS: CITALOPRAM HYDROBR 20 MG TAB PO SCH (09:58)
[2022-02-12] MEDS: ENOXAPARIN SOD 40 MG/0.4 ML SYRINGE SC SCH (09:59)
[2022-02-12] MEDS: levoFLOXacin 500MG 100 ML IV SCH ×2 (09:59→10:59)
[2022-02-12 13:09] VITALS: BP 114/59
[2022-02-12 17:19] VITALS: BP 129/66
[2022-02-12 22:00] VITALS: BP 124/76
[2022-02-13] MEDS: HYDROcodone-ACET 5/325MG TAB PO PRN ×4 (00:42→14:33)
[2022-02-13] MEDS: ONDANSETRON HCL 4 MG/2 ML VIAL IV PRN (03:13)
[2022-02-13] MEDS: MORPHINE SULFATE INJ 2 MG/ml SYRG IV PRN ×3 (03:14→11:49)
[2022-02-13 05:00] VITALS: BP 95/50
[2022-02-13] MEDS: SODIUM CHLORIDE 0.9% 1,000 ML IV SCH ×2 (05:50→14:10)
[2022-02-13] MEDS: GABAPENTIN 300 MG CAP PO SCH ×2 (06:02→14:15)
[2022-02-13] MEDS: METOCLOPRAMIDE HCL 5MG/ml INJ 2ml VIAL IV SCH ×3 (06:02→14:14)
[2022-02-13] MEDS: ACCU-CHEK COMFORT CURVE STRIP VI SCH ×2 (06:14→11:50)
[2022-02-13] MEDS: InsuLIN REG 1unit/0.01ml Soln (100units/ml) SC SCH ×2 (06:14→11:30)
[2022-02-13 06:29] LABS: Basophils # (auto) 0 10 ^3/uL (0-0.2); Eosinophils # (auto) 0.2 10 ^3/uL (0-0.8); Hemoglobin 12.1 g/dL (12.2-16.2); Monocytes # (auto) 0.7 10 ^3/uL (0-1.3); Neutrophils # (auto) 3.3 10 ^3/uL (1.6-8.6); Nucleated Red Blood Cells % 0.1 %
[2022-02-13 06:32] LABS: Basophils % (auto) 0.2 % (0.0-2.0); Eosinophils % (auto) 3.3 % (0.0-7.0); Hematocrit 37.9 % (36.0-46.0); Lymphocytes # (auto) 2.8 10 ^3/uL (0.4-5.4); Mean Corpuscular Hgb Conc. 31.8 g/dL (32.0-36.0); Mean Corpuscular Volume 81.5 fL (80.0-100.0); Monocytes % (auto) 9.8 % (0.0-12.0); Neutrophils % (auto) 46.7 % (37.0-80.0); Red Blood Cells 4.65 10^6/uL (4.0-5.20); Red Cell Distribution Width 14.5 % (11.8-14.3)
[2022-02-13 06:46] LABS: Calcium 9.5 mg/dL (8.5-10.1); Magnesium 2.4 mg/dL (1.6-2.6); Potassium 3.9 mmol/L (3.5-5.1)
[2022-02-13 06:47] LABS: BUN/Creatinine Ratio 24.2
[2022-02-13 09:18] VITALS: BP 106/60
[2022-02-13] MEDS: PANTOPRAZOLE 40 MG/10 ML VIAL INJ IV SCH (10:09)
[2022-02-13] MEDS: CITALOPRAM HYDROBR 20 MG TAB PO SCH (10:09)
[2022-02-13] MEDS: ENOXAPARIN SOD 40 MG/0.4 ML SYRINGE SC SCH (10:10)
[2022-02-13 13:23] VITALS: BP 118/71
[2022-02-13 15:35] VITALS: BP 123/73
== END 2022-02-13 16:00 | disposition home or self-care (01) | DRG 254 ==
LOC: ER 08:51 → OVERFLOW 18:18 → WEST WING 22:29
PROVIDERS: ADMIT Internal Medicine; ATTEND Internal Medicine
DX: K31.84 Gastroparesis (principal); E78.5 Hyperlipidemia, unspecified; F12.90 Cannabis use, unspecified, uncomplicated; F20.9 Schizophrenia, unspecified; F31.9 Bipolar disorder, unspecified; J45.909 Unspecified asthma, uncomplicated; N39.0 Urinary tract infection, site not specified; Z20.822 Contact with and (suspected) exposure to COVID-19; F41.9 Anxiety disorder, unspecified; F51.04 Psychophysiologic insomnia; G62.9 Polyneuropathy, unspecified; G89.4 Chronic pain syndrome; K21.9 Gastro-esophageal reflux disease without esophagitis; Z79.899 Other long term (current) drug therapy; Z93.1 Gastrostomy status; Z88.2 Allergy status to sulfonamides; Z88.8 Allergy status to other drugs, medicaments and biological substances; Z80.0 Family history of malignant neoplasm of digestive organs; Z80.6 Family history of leukemia; Z82.49 Family history of ischemic heart disease and other diseases of the circulatory system; Z83.3 Family history of diabetes mellitus; Z90.710 Acquired absence of both cervix and uterus; Z88.0 Allergy status to penicillin; R11.15 Cyclical vomiting syndrome unrelated to migraine
CPT/HCPCS: 36415; 74176; 80048; 80053; 81001; 81025; 82962; 83036; 83735; 85025; 87040; 87076; 87186; C9113; G0378; J1956; J2405

== ENCOUNTER 2022-03-12 09:12 | Emergency (ER) | payer MEDICAID ==
[~2022-03-12] VITALS: Ht 165.1 cm; Wt 93.6 kg
[~2022-03-12 09:12] MED LIST changes: +ARIP10TA29 PO; +CITA10TA70 PO; -IBUP-1678 PO
[2022-03-12 10:19] LABS: Urine Bacteria NONE SEEN /hpf (None Seen); Urine Blood TRACE /uL (Negative); Urine Budding Yeast OCCASIONAL /hpf (None Seen); Urine Specific Gravity 1.014 (1.001-1.035); Urine WBC 1 /hpf (0 - 5)
[2022-03-12 10:41] LABS: Basophils # (auto) 0.1 10 ^3/uL (0-0.2); Basophils % (auto) 0.6 % (0.0-2.0); Eosinophils # (auto) 0.3 10 ^3/uL (0-0.8); Hemoglobin 12.5 g/dL (12.2-16.2); Monocytes # (auto) 0.5 10 ^3/uL (0-1.3); Neutrophils # (auto) 4.9 10 ^3/uL (1.6-8.6)
[2022-03-12 10:43] LABS: Lymphocytes # (auto) 3.7 10 ^3/uL (0.4-5.4); Lymphocytes % (auto) 39.2 % (10.0-50.0); Mean Corpuscular Hgb Conc. 32.1 g/dL (32.0-36.0); Monocytes % (auto) 5.4 % (0.0-12.0); Neutrophils % (auto) 51.8 % (37.0-80.0); Red Blood Cells 4.82 10^6/uL (4.0-5.20); Red Cell Distribution Width 16.4 % (11.8-14.3); White Blood Cell 9.5 10^3/uL (4.4-10.8)
[2022-03-12 11:04] LABS: Albumin 3.2 g/dL (3.4-5.0); Calcium 9.4 mg/dL (8.5-10.1); Potassium 3.5 mmol/L (3.5-5.1)
[2022-03-12 11:07] LABS: BUN/Creatinine Ratio 17.6; Bilirubin, Total 0.2 mg/dL (0.2-1.0); Total Protein 6.2 g/dL (6.4-8.2)
[2022-03-12] MEDS ORDERED: MORPHINE SULFATE 4 MG/ML SYR/VIAL IM ONE (12:30)
[2022-03-12 13:34] VITALS: BP 127/52
== END 2022-03-12 13:36 | disposition home or self-care (01) ==
LOC: ER 09:12
DX: R51.9 Headache, unspecified (principal); J45.909 Unspecified asthma, uncomplicated; E78.5 Hyperlipidemia, unspecified; F17.210 Nicotine dependence, cigarettes, uncomplicated; Z90.710 Acquired absence of both cervix and uterus; Z88.0 Allergy status to penicillin; Z88.2 Allergy status to sulfonamides; Z88.8 Allergy status to other drugs, medicaments and biological substances
CPT/HCPCS: 36415; 70450; 80053; 81001; 85025; 96372; 99284; J2270

== ENCOUNTER 2022-03-19 15:07 | Emergency (ER) | payer MEDICAID ==
[~2022-03-19] VITALS: Ht 165.1 cm; Wt 95.5 kg
[2022-03-19] MEDS ORDERED: MORPHINE SULFATE 4 MG/ML SYR/VIAL IM ONE (18:30)
[2022-03-19 19:26] VITALS: BP 146/89
== END 2022-03-19 19:28 | disposition home or self-care (01) ==
LOC: ER 15:09
DX: R51.9 Headache, unspecified (principal); F17.210 Nicotine dependence, cigarettes, uncomplicated; J45.909 Unspecified asthma, uncomplicated; E78.5 Hyperlipidemia, unspecified; Z90.89 Acquired absence of other organs; Z90.710 Acquired absence of both cervix and uterus
CPT/HCPCS: 96372; 99283; J2270

== ENCOUNTER 2022-03-30 09:14 | Emergency (ER) | payer MEDICAID ==
[~2022-03-30] VITALS: Ht 165.1 cm; Wt 92.5 kg
[2022-03-30 09:33] VITALS: BP 111/54
[2022-03-30 09:51] LABS: Basophils # (auto) 0 10 ^3/uL (0-0.2); Basophils % (auto) 0.3 % (0.0-2.0); Eosinophils # (auto) 0.1 10 ^3/uL (0-0.8); Eosinophils % (auto) 1.3 % (0.0-7.0); Hematocrit 40.5 % (36.0-46.0); Hemoglobin 13.4 g/dL (12.2-16.2); Lymphocytes # (auto) 1.9 10 ^3/uL (0.4-5.4); Lymphocytes % (auto) 23.3 % (10.0-50.0); Mean Corpuscular Hemoglobin 26.6 pg (28.0-32.0); Mean Corpuscular Hgb Conc. 33.1 g/dL (32.0-36.0); Mean Corpuscular Volume 80.4 fL (80.0-100.0); Monocytes # (auto) 0.4 10 ^3/uL (0-1.3); Monocytes % (auto) 5.4 % (0.0-12.0); Neutrophils # (auto) 5.8 10 ^3/uL (1.6-8.6); Neutrophils % (auto) 69.7 % (37.0-80.0); Nucleated Red Blood Cells % 0.1 %; Red Blood Cells 5.03 10^6/uL (4.0-5.20); Red Cell Distribution Width 16.4 % (11.8-14.3); White Blood Cell 8.3 10^3/uL (4.4-10.8)
[2022-03-30 10:11] LABS: Albumin 3.4 g/dL (3.4-5.0); Calcium 9.6 mg/dL (8.5-10.1); Potassium 3.6 mmol/L (3.5-5.1)
[2022-03-30 10:16] LABS: Urine Bacteria NONE SEEN /hpf (None Seen); Urine Blood Negative /uL (Negative); Urine Specific Gravity 1.025 (1.001-1.035); Urine WBC 6 /hpf (0 - 5)
[2022-03-30 10:30] LABS: BUN/Creatinine Ratio 16.4; Bilirubin, Total 0.2 mg/dL (0.2-1.0); Total Protein 6.7 g/dL (6.4-8.2)
[2022-03-31] MEDS ORDERED: CIPR-173 PO (19:31)
== END 2022-03-30 11:01 | disposition home or self-care (01) ==
LOC: ER 09:14
DX: E16.2 Hypoglycemia, unspecified (principal); E78.5 Hyperlipidemia, unspecified; J45.909 Unspecified asthma, uncomplicated; F17.210 Nicotine dependence, cigarettes, uncomplicated; Z90.49 Acquired absence of other specified parts of digestive tract; Z90.710 Acquired absence of both cervix and uterus; Z79.899 Other long term (current) drug therapy; Z88.0 Allergy status to penicillin; Z88.2 Allergy status to sulfonamides; Z88.8 Allergy status to other drugs, medicaments and biological substances
CPT/HCPCS: 36415; 80053; 81001; 81025; 85025

== ENCOUNTER 2022-03-31 17:52 | Emergency (ER) | payer MEDICAID ==
[~2022-03-31] VITALS: Ht 165.1 cm; Wt 91.0 kg
[2022-03-31 18:07] VITALS: BP 108/64
[2022-03-31 18:53] LABS: Urine Bacteria FEW /hpf (None Seen); Urine Blood Negative /uL (Negative); Urine Hyaline Cast FEW /lpf (0 - 2); Urine Mucus FEW (None Seen); Urine Specific Gravity 1.023 (1.001-1.035); Urine WBC 16 /hpf (0 - 5)
[2022-03-31] MEDS ORDERED: ALUM & MAG HYDROX-SIMETH LIQ(MAALOX) 30 ML PO ONE (19:15)
[2022-03-31] MEDS ORDERED: DONNATAL 5ml ORAL Elix (BELLADONNA ALK-PHENOBARB) PO ONE (19:15)
[2022-03-31] MEDS ORDERED: OXYCODONE W/ ACETAMINOPHEN 5/325MG TABLET PO ONE (19:30)
[2022-03-31 19:31] LABS: Basophils # (auto) 0.1 10 ^3/uL (0-0.2); Eosinophils # (auto) 0.2 10 ^3/uL (0-0.8); Hemoglobin 13.2 g/dL (12.2-16.2); Lymphocytes # (auto) 3.4 10 ^3/uL (0.4-5.4)
[2022-03-31] MEDS ORDERED: CIPR-173 PO (19:31)
[2022-03-31 19:33] LABS: Basophils % (auto) 0.8 % (0.0-2.0); Eosinophils % (auto) 1.6 % (0.0-7.0); Hematocrit 39.7 % (36.0-46.0); Mean Corpuscular Hemoglobin 26.9 pg (28.0-32.0); Mean Corpuscular Hgb Conc. 33.2 g/dL (32.0-36.0); Mean Corpuscular Volume 81.1 fL (80.0-100.0); Monocytes # (auto) 0.8 10 ^3/uL (0-1.3); Neutrophils # (auto) 6.8 10 ^3/uL (1.6-8.6); Neutrophils % (auto) 60.6 % (37.0-80.0); Nucleated Red Blood Cells % 0.1 %; Red Blood Cells 4.89 10^6/uL (4.0-5.20); Red Cell Distribution Width 16.7 % (11.8-14.3); White Blood Cell 11.2 10^3/uL (4.4-10.8)
[2022-03-31 19:55] LABS: Albumin 3.4 g/dL (3.4-5.0); BUN/Creatinine Ratio 21.8; Calcium 9.6 mg/dL (8.5-10.1); Potassium 3.2 mmol/L (3.5-5.1)
[2022-03-31 19:58] LABS: Bilirubin, Total 0.2 mg/dL (0.2-1.0); Total Protein 7.4 g/dL (6.4-8.2)
== END 2022-03-31 21:43 | disposition home or self-care (01) ==
LOC: ER 17:52
DX: R10.13 Epigastric pain (principal); G89.29 Other chronic pain; F19.20 Other psychoactive substance dependence, uncomplicated; J45.909 Unspecified asthma, uncomplicated; E78.5 Hyperlipidemia, unspecified; F17.210 Nicotine dependence, cigarettes, uncomplicated; Z90.49 Acquired absence of other specified parts of digestive tract; Z90.710 Acquired absence of both cervix and uterus; Z79.899 Other long term (current) drug therapy; Z88.0 Allergy status to penicillin; Z88.2 Allergy status to sulfonamides; Z88.8 Allergy status to other drugs, medicaments and biological substances
CPT/HCPCS: 36415; 74176; 80053; 81001; 82150; 83690; 85025

== ENCOUNTER 2022-08-15 15:27 | Inpatient (IN) | payer MEDICAID ==
[~2022-08-15] VITALS: Ht 165.1 cm; Wt 96.0 kg
[~2022-08-15 15:27] MED LIST changes: +CIPR-173 PO
[2022-08-15] MEDS ORDERED: ONDANSETRON ODT 4 MG TAB PO ONE (15:45)
[2022-08-15] MEDS ORDERED: LIDOCAINE VISCOUS 2% 15ML UD PO ONE (15:45)
[2022-08-15 16:20] LABS: Albumin 4.2 g/dL (3.4-5.0); Potassium 3.2 mmol/L (3.5-5.1)
[2022-08-15 16:24] LABS: BUN/Creatinine Ratio 20.2; Bilirubin, Total 0.8 mg/dL (0.2-1.0); Total Protein 8.5 g/dL (6.4-8.2)
[2022-08-15 16:25] LABS: Basophils # (auto) 0 10 ^3/uL (0-0.2); Basophils % (auto) 0.4 % (0.0-2.0); Eosinophils # (auto) 0 10 ^3/uL (0-0.8); Eosinophils % (auto) 0.1 % (0.0-7.0); Hematocrit 48.8 % (36.0-46.0); Hemoglobin 16.1 g/dL (12.2-16.2); Lymphocytes # (auto) 2.9 10 ^3/uL (0.4-5.4); Lymphocytes % (auto) 23.1 % (10.0-50.0); Mean Corpuscular Hemoglobin 27.4 pg (28.0-32.0); Mean Corpuscular Volume 83.2 fL (80.0-100.0); Monocytes # (auto) 0.9 10 ^3/uL (0-1.3); Neutrophils # (auto) 8.6 10 ^3/uL (1.6-8.6); Neutrophils % (auto) 69.4 % (37.0-80.0); Nucleated Red Blood Cells % 0.2 %; Red Blood Cells 5.86 10^6/uL (4.0-5.20); Red Cell Distribution Width 14.4 % (11.8-14.3); White Blood Cell 12.4 10^3/uL (4.4-10.8)
[2022-08-15] MEDS ORDERED: SODIUM CHLORIDE 0.9% 1,000 ML IV ONE (16:30)
[2022-08-15] MEDS ORDERED: METOCLOPRAMIDE HCL 5MG/ml INJ 2ml VIAL IV ONE (16:30)
[2022-08-15] MEDS ORDERED: FAMOTIDINE (10MG/ML) 2ML VL IV ONE (16:30)
[2022-08-15] MEDS ORDERED: ONDANSETRON HCL 4 MG/2 ML VIAL IV ONE (16:30)
[2022-08-15] MEDS ORDERED: DOCUSATE SOD 100 MG CAP PO PRN (20:30)
[2022-08-15] MEDS ORDERED: ACETAMINOPHEN 325 MG TAB PO PRN (20:30)
[2022-08-15] MEDS ORDERED: DEXTROSE (50%) 50ML SYRG IV PRN (22:15)
[2022-08-15] MEDS: MAALOX PLUS or MAALOX 30 ML PO ONE ×2 (23:00→23:39)
[2022-08-15] MEDS: FAMOTIDINE 20 MG TAB PO ONE ×2 (23:00→23:38)
[2022-08-15] MEDS: traZODone HCL 50 MG TAB PO SCH (23:00)
[2022-08-15] MEDS: GABAPENTIN 300 MG CAP PO SCH ×2 (23:00→23:37)
[2022-08-16] MEDS: PANTOPRAZOLE 40 MG/10 ML VIAL INJ IV SCH ×3 (00:04→22:19)
[2022-08-16] MEDS: ONDANSETRON HCL 4 MG/2 ML VIAL IV PRN ×4 (05:03→22:20)
[2022-08-16] MEDS: HYDROcodone-ACET 5/325MG TAB PO PRN (05:03)
[2022-08-16] MEDS: SODIUM CHLORIDE 0.9% 1,000 ML IV SCH ×3 (05:04→15:50)
[2022-08-16 05:22] LABS: Basophils # (auto) 0 10 ^3/uL (0-0.2); Basophils % (auto) 0.5 % (0.0-2.0); Eosinophils # (auto) 0.1 10 ^3/uL (0-0.8); Eosinophils % (auto) 0.7 % (0.0-7.0); Hematocrit 43.1 % (36.0-46.0); Hemoglobin 14.1 g/dL (12.2-16.2); Lymphocytes # (auto) 3.2 10 ^3/uL (0.4-5.4); Lymphocytes % (auto) 33.8 % (10.0-50.0); Mean Corpuscular Hemoglobin 27.4 pg (28.0-32.0); Mean Corpuscular Hgb Conc. 32.8 g/dL (32.0-36.0); Mean Corpuscular Volume 83.7 fL (80.0-100.0); Monocytes # (auto) 1.1 10 ^3/uL (0-1.3); Monocytes % (auto) 11.8 % (0.0-12.0); Neutrophils % (auto) 53.2 % (37.0-80.0); Red Blood Cells 5.15 10^6/uL (4.0-5.20); Red Cell Distribution Width 14.6 % (11.8-14.3); White Blood Cell 9.5 10^3/uL (4.4-10.8)
[2022-08-16 05:36] LABS: Albumin 3.5 g/dL (3.4-5.0); Calcium 9.1 mg/dL (8.5-10.1); Potassium 3.2 mmol/L (3.5-5.1)
[2022-08-16 05:42] LABS: BUN/Creatinine Ratio 32.7; Bilirubin, Total 0.9 mg/dL (0.2-1.0); Total Protein 6.6 g/dL (6.4-8.2)
[2022-08-16] MEDS: GABAPENTIN 300 MG CAP PO SCH ×3 (05:58→22:00)
[2022-08-16] MEDS: ACCU-CHEK COMFORT CURVE STRIP VI SCH ×4 (06:34→22:19)
[2022-08-16] MEDS: InsuLIN REG 1unit/0.01ml Soln (100units/ml) SC SCH ×4 (06:35→22:00)
[2022-08-16] MEDS: MORPHINE SULFATE INJ 2 MG/ml SYRG IV PRN ×3 (09:04→22:20)
[2022-08-16] MEDS: ARIPIPRAZOLE 15 MG PO SCH (10:00)
[2022-08-16] MEDS: CITALOPRAM HYDROBR 20 MG TAB PO SCH (10:13)
[2022-08-16 13:28] VITALS: BP 114/68
[2022-08-16 17:00] VITALS: BP 109/75
[2022-08-16] MEDS: SUCRALFATE 1 GM/10 ML ORAL SUSP PO SCH (17:00)
[2022-08-16] MEDS: METOCLOPRAMIDE HCL 5MG/ml INJ 2ml VIAL IV SCH (19:18)
[2022-08-16 21:59] LABS: Urine Bacteria FEW /hpf (None Seen); Urine Blood Negative /uL (Negative); Urine Mucus FEW (None Seen); Urine Specific Gravity 1.035 (1.001-1.035); Urine WBC 25 /hpf (0 - 5)
[2022-08-16 22:00] VITALS: BP 128/44
[2022-08-16] MEDS: traZODone HCL 50 MG TAB PO SCH (22:00)
[2022-08-17] MEDS: METOCLOPRAMIDE HCL 5MG/ml INJ 2ml VIAL IV SCH ×5 (00:14→23:46)
[2022-08-17 05:00] VITALS: BP 102/55
[2022-08-17] MEDS: GABAPENTIN 300 MG CAP PO SCH ×3 (06:00→21:53)
[2022-08-17] MEDS: SUCRALFATE 1 GM/10 ML ORAL SUSP PO SCH ×3 (06:20→17:58)
[2022-08-17] MEDS: InsuLIN REG 1unit/0.01ml Soln (100units/ml) SC SCH ×4 (06:38→21:53)
[2022-08-17] MEDS: ACCU-CHEK COMFORT CURVE STRIP VI SCH ×4 (06:39→21:53)
[2022-08-17] MEDS: MORPHINE SULFATE INJ 2 MG/ml SYRG IV PRN ×2 (06:40→12:44)
[2022-08-17 08:37] LABS: Basophils # (auto) 0 10 ^3/uL (0-0.2); Basophils % (auto) 0.7 % (0.0-2.0); Eosinophils # (auto) 0.1 10 ^3/uL (0-0.8); Eosinophils % (auto) 2.3 % (0.0-7.0); Hematocrit 42.2 % (36.0-46.0); Hemoglobin 13.7 g/dL (12.2-16.2); Lymphocytes # (auto) 2.2 10 ^3/uL (0.4-5.4); Lymphocytes % (auto) 37.5 % (10.0-50.0); Mean Corpuscular Hemoglobin 27.3 pg (28.0-32.0); Mean Corpuscular Hgb Conc. 32.5 g/dL (32.0-36.0); Mean Corpuscular Volume 83.9 fL (80.0-100.0); Monocytes # (auto) 0.6 10 ^3/uL (0-1.3); Monocytes % (auto) 9.9 % (0.0-12.0); Neutrophils # (auto) 2.9 10 ^3/uL (1.6-8.6); Neutrophils % (auto) 49.6 % (37.0-80.0); Nucleated Red Blood Cells % 0.1 %; Red Blood Cells 5.02 10^6/uL (4.0-5.20); Red Cell Distribution Width 14.4 % (11.8-14.3); White Blood Cell 5.9 10^3/uL (4.4-10.8)
[2022-08-17 08:51] LABS: BUN/Creatinine Ratio 22.2; Calcium 9.2 mg/dL (8.5-10.1); Magnesium 2.6 mg/dL (1.6-2.6); Potassium 3.4 mmol/L (3.5-5.1)
[2022-08-17 09:11] VITALS: BP 113/68
[2022-08-17] MEDS: ARIPIPRAZOLE 15 MG PO SCH (10:00)
[2022-08-17] MEDS: PANTOPRAZOLE 40 MG/10 ML VIAL INJ IV SCH ×2 (10:54→21:53)
[2022-08-17] MEDS: CITALOPRAM HYDROBR 20 MG TAB PO SCH (10:55)
[2022-08-17] MEDS: ONDANSETRON HCL 4 MG/2 ML VIAL IV PRN ×2 (10:55→19:55)
[2022-08-17 12:51] VITALS: BP 119/72
[2022-08-17] MEDS ORDERED: MORPHINE SULFATE INJ 2 MG/ml SYRG IV PRN (14:45)
[2022-08-17] MEDS ORDERED: SUCR1SUS10 PO (14:47)
[2022-08-17] MEDS ORDERED: PANT40TA2 PO (14:47)
[2022-08-17] MEDS ORDERED: SUCR1TAB PO (14:48)
[2022-08-17 16:38] VITALS: BP 133/81
[2022-08-17] MEDS: traZODone HCL 50 MG TAB PO SCH (21:53)
[2022-08-17 22:00] VITALS: BP 116/51
[2022-08-17] MEDS: SODIUM CHLORIDE 0.9% 1,000 ML IV SCH (22:29)
[2022-08-18 05:00] VITALS: BP 103/56
[2022-08-18] MEDS: ACCU-CHEK COMFORT CURVE STRIP VI SCH ×2 (06:13→11:30)
[2022-08-18] MEDS: GABAPENTIN 300 MG CAP PO SCH (06:13)
[2022-08-18] MEDS: InsuLIN REG 1unit/0.01ml Soln (100units/ml) SC SCH ×2 (06:13→11:30)
[2022-08-18] MEDS: METOCLOPRAMIDE HCL 5MG/ml INJ 2ml VIAL IV SCH ×2 (06:13→12:12)
[2022-08-18] MEDS: SUCRALFATE 1 GM/10 ML ORAL SUSP PO SCH ×2 (06:26→12:12)
[2022-08-18 08:15] VITALS: BP 105/52
[2022-08-18] MEDS: ARIPIPRAZOLE 15 MG PO SCH (08:49)
[2022-08-18] MEDS: CITALOPRAM HYDROBR 20 MG TAB PO SCH (08:50)
[2022-08-18] MEDS: PANTOPRAZOLE 40 MG/10 ML VIAL INJ IV SCH (08:50)
[2022-08-18] MEDS: HYDROcodone-ACET 5/325MG TAB PO PRN (08:52)
[2022-08-18 09:00] VITALS: BP 105/52
[2022-08-18 10:47] VITALS: BP 105/52
== END 2022-08-18 13:04 | disposition home or self-care (01) | DRG 241 ==
LOC: ER 15:27 → OVERFLOW 20:27 → EAST 08-16 11:02 → TELE-E-ADS 08-16 12:29 → EAST 08-16 16:37
PROVIDERS: ADMIT Nurse Practitioner Family; ATTEND Hospitalist
DX: K29.00 Acute gastritis without bleeding (principal); E11.9 Type 2 diabetes mellitus without complications; K21.9 Gastro-esophageal reflux disease without esophagitis; F17.210 Nicotine dependence, cigarettes, uncomplicated; F20.9 Schizophrenia, unspecified; F31.9 Bipolar disorder, unspecified; N39.0 Urinary tract infection, site not specified; J45.909 Unspecified asthma, uncomplicated; N80.9 Endometriosis, unspecified; G35 Multiple sclerosis; E86.0 Dehydration; F41.9 Anxiety disorder, unspecified; Z20.822 Contact with and (suspected) exposure to COVID-19; Z90.710 Acquired absence of both cervix and uterus; Z76.5 Malingerer [conscious simulation]; Z93.1 Gastrostomy status; Z87.11 Personal history of peptic ulcer disease; Z90.49 Acquired absence of other specified parts of digestive tract; Z85.43 Personal history of malignant neoplasm of ovary; Z83.3 Family history of diabetes mellitus; Z82.49 Family history of ischemic heart disease and other diseases of the circulatory system; Z80.6 Family history of leukemia; Z80.0 Family history of malignant neoplasm of digestive organs
CPT/HCPCS: 36415; 74176; 80048; 80053; 81001; 82962; 83735; 84702; 85025; 87081; 87086; 87426; 96361; 96374; 96375; C9113; G0378; J2405; J3490